=== PATIENT | female | born 1955 | race Caucasian/White ===

== ENCOUNTER 2016-08-19 19:02 | Inpatient (IN) | payer BC ==
[~2016-08-19] VITALS: Ht 165.1 cm; Wt 66.9 kg
[~2016-08-19 19:02] MED LIST: AMITRIP PO; CARB200T PO; CHOL500016 PO; CLON1TAB PO; GLAT20KI SC; LEVE500T22 PO; LEVE500T81 PO; LUBI24CA6 PO; METH10TA97 PO; MORP30TA PO; OXYB5TAB62 PO; PREG200C19 PO; RANI150C3 PO; SERT-135 PO
[2016-08-19] MEDS ORDERED: ACETAMINOPHEN 650 MG RECT SUPP PR ONE (19:30)
[2016-08-19 20:01] LABS: Basophils # (auto) 0.1 uL; Basophils % (auto) 0.6 % (0.0-2.0); Eosinophils # (auto) 0 uL; Hematocrit 47.7 % (36.0-46.0); Hemoglobin 16.3 g/dL (12.2-16.2); Lymphocytes # (auto) 0.6 uL; Lymphocytes % (auto) 5.3 % (10.0-50.0); Mean Corpuscular Hemoglobin 32.5 pg (28.0-32.0); Mean Corpuscular Hgb Conc. 34.2 g/dL (32.0-36.0); Monocytes # (auto) 0.8 uL; Monocytes % (auto) 7.6 % (0.0-12.0); Neutrophils # (auto) 9.1 uL; Neutrophils % (auto) 86.5 % (37.0-80.0); Platelet Count (auto) 217 10^3/uL (140-450); Red Cell Distribution Width 12.4 % (11.6-16.0); White Blood Cell 10.5 10^3/uL (4.4-10.8)
[2016-08-19] MEDS ORDERED: SODIUM CHLORIDE 0.9% 2,000 ML IV ONE (20:15)
[2016-08-19 20:30] LABS: Albumin 3.3 g/dL (3.4-5.0); Alkaline Phosphatase 82 U/L (45-117); Anion Gap 10 (5-15); Aspartate Aminotransferase 33 U/L (15-37); Bilirubin, Total 0.4 mg/dL (0.2-1.0); Blood Urea Nitrogen 13 mg/dL (7-18); Calcium 8.3 mg/dL (8.5-10.1); Carbon Dioxide 27 mmol/L (21-32); Chloride 101 mmol/L (98-107); GFR African American 135 mL/min; GFR Non-African American 111 mL/min; Glucose 136 mg/dL (74-106); Magnesium 1.9 mg/dL (1.6-2.6); Potassium 3.3 mmol/L (3.5-5.1); Sodium 138 mmol/L (136-145)
[2016-08-19] MEDS ORDERED: ONDANSETRON HCL 4 MG/2 ML VIAL IV ONE (21:15)
[2016-08-19 21:19] LABS: Urine Bilirubin Negative (Negative); Urine Blood Negative /uL (Negative); Urine Color Yellow (Yellow); Urine Glucose Normal (Normal); Urine Ketone Negative (Negative); Urine Nitrite Negative (Negative); Urine RBC 2 /hpf (0 - 4); Urine Squamous Epithelial Cell FEW /hpf (<5); Urine Urobilinogen Normal (Negative); Urine pH 8.5 (5.0-8.0)
[2016-08-20] MEDS ORDERED: NITROGLYCERIN 0.4 MG SL TAB SL PRN (00:45)
[2016-08-20] MEDS ORDERED: SERTRALINE HCL 50 MG TAB PO ONE (00:45)
[2016-08-20] MEDS ORDERED: PANTOPRAZOLE SODIUM 40 MG/10 ML VIAL IV ONE (00:45)
[2016-08-20] MEDS ORDERED: ACETAMINOPHEN 500 MG TAB PO PRN (00:45)
[2016-08-20] MEDS ORDERED: ONDANSETRON HCL 4 MG/2 ML VIAL IV PRN (00:45)
[2016-08-20] MEDS ORDERED: MORPHINE SULF INJ 2 MG/ML SYRINGE 1ML IV PRN (00:45)
[2016-08-20] MEDS ORDERED: SODIUM CHLORIDE 0.9% 1,000 ML IV ONE (00:45)
[2016-08-20] MEDS ORDERED: LORazepam 2MG/ML-1ML VIAL IV ONE (01:15)
[2016-08-20] MEDS ORDERED: metroNIDAZOLE 500MG/100ML 100 ML IV ONE (03:30)
[2016-08-20] MEDS: metroNIDAZOLE 250MG/50 ML 50 ML IV SCH ×4 (03:37→22:19)
[2016-08-20] MEDS: PIPERACILLIN-TAZOB 3.375GM 100 ML IV SCH ×5 (03:57→23:28)
[2016-08-20] MEDS ORDERED: ONDANSETRON HCL 4 MG/2 ML VIAL IV ONE (07:00)
[2016-08-20] MEDS ORDERED: ENOXAPARIN SOD 30 MG/0.3 ML SYRINGE SC SCH (10:00)
[2016-08-20] MEDS ORDERED: clonazePAM 0.5 MG TAB PO SCH (10:00)
[2016-08-20] MEDS: PANTOPRAZOLE SODIUM 40 MG/10 ML VIAL IV SCH (10:30)
[2016-08-20] MEDS: ENOXAPARIN SOD 40 MG/0.4 ML SYRINGE SC SCH (10:30)
[2016-08-20] MEDS: MORPHINE SULF INJ 2 MG/ML SYRINGE 1ML IV PRN ×2 (11:16→15:42)
[2016-08-20] MEDS ORDERED: LORazepam 2MG/ML-1ML VIAL IV PRN (12:30)
[2016-08-20] MEDS: OXYBUTYNIN CHL 5 MG TAB PO SCH ×2 (17:57→22:00)
[2016-08-20] MEDS: carBAMazepine 200 MG TAB PO SCH ×2 (17:57→22:00)
[2016-08-20] MEDS: LEVETIRACETAM 500 MG TAB PO SCH ×2 (17:57→22:00)
[2016-08-20] MEDS: PREGABALIN CAPSULE 75 MG CAP PO SCH ×2 (17:57→22:00)
[2016-08-20] MEDS: SERTRALINE HCL 50 MG TAB PO SCH (17:58)
[2016-08-20 18:07] VITALS: BP 140/93
[2016-08-20 20:51] VITALS: BP 149/82
[2016-08-20] MEDS ORDERED: LEVETIRACETAM INJ 500 MG in SODIUM CHL 0.9% 100 ML IV SCH ×2 (21:30→22:00)
[2016-08-20] MEDS ORDERED: AMITIZA 24 MCG PO SCH (22:00)
[2016-08-20] MEDS: SODIUM CHLORIDE 0.9% 1,000 ML IV SCH (22:20)
[2016-08-20] MEDS: LEVETIRACETAM INJ 500 MG in SODIUM CHL 0.9% 100 ML IV SCH (22:20)
[2016-08-21 00:26] VITALS: BP 148/80
[2016-08-21] MEDS: SODIUM CHLORIDE 0.9% 1,000 ML IV SCH ×4 (03:40→23:56)
[2016-08-21 04:00] VITALS: BP 138/78
[2016-08-21 05:10] LABS: Basophils # (auto) 0 uL; Basophils % (auto) 0.6 % (0.0-2.0); Eosinophils # (auto) 0 uL; Eosinophils % (auto) 0.1 % (0.0-7.0); Hematocrit 38.7 % (36.0-46.0); Hemoglobin 12.8 g/dL (12.2-16.2); Lymphocytes # (auto) 0.8 uL; Lymphocytes % (auto) 21.4 % (10.0-50.0); Mean Corpuscular Hgb Conc. 33.2 g/dL (32.0-36.0); Mean Corpuscular Volume 96.4 fL (80.0-100.0); Mean Platelet Volume 9.6 fL (7.4-10.4); Monocytes # (auto) 0.5 uL; Monocytes % (auto) 14.5 % (0.0-12.0); Neutrophils # (auto) 2.3 uL; Neutrophils % (auto) 63.4 % (37.0-80.0); Platelet Count (auto) 150 10^3/uL (140-450); Red Cell Distribution Width 12.3 % (11.6-16.0); White Blood Cell 3.6 10^3/uL (4.4-10.8)
[2016-08-21] MEDS: PIPERACILLIN-TAZOB 3.375GM 100 ML IV SCH ×3 (05:30→17:46)
[2016-08-21 05:31] LABS: Albumin 2.9 g/dL (3.4-5.0); BUN/Creatinine Ratio 28.2; Bilirubin, Total 0.4 mg/dL (0.2-1.0); Calcium 8.2 mg/dL (8.5-10.1); Potassium 3.2 mmol/L (3.5-5.1); Total Protein 6.3 g/dL (6.4-8.2)
[2016-08-21] MEDS: metroNIDAZOLE 250MG/50 ML 50 ML IV SCH ×3 (05:31→21:09)
[2016-08-21] MEDS: OXYBUTYNIN CHL 5 MG TAB PO SCH ×2 (10:00→19:57)
[2016-08-21] MEDS: LEVETIRACETAM 500 MG TAB PO SCH ×2 (10:00→21:09)
[2016-08-21] MEDS: carBAMazepine 200 MG TAB PO SCH ×2 (10:00→19:57)
[2016-08-21] MEDS: PREGABALIN CAPSULE 75 MG CAP PO SCH ×2 (10:00→19:57)
[2016-08-21] MEDS: SERTRALINE HCL 50 MG TAB PO SCH (10:00)
[2016-08-21] MEDS: PANTOPRAZOLE SODIUM 40 MG/10 ML VIAL IV SCH (10:48)
[2016-08-21] MEDS: ENOXAPARIN SOD 40 MG/0.4 ML SYRINGE SC SCH (10:48)
[2016-08-21] MEDS: LEVETIRACETAM INJ 500 MG in SODIUM CHL 0.9% 100 ML IV SCH (10:49)
[2016-08-21] MEDS: MORPHINE SULF INJ 2 MG/ML SYRINGE 1ML IV PRN ×2 (13:28→21:14)
[2016-08-21] MEDS ORDERED: BISACODYL 10 MG RECT SUPP PR ONE (16:00)
[2016-08-21] MEDS ORDERED: POTASSIUM CHLORIDE 20 MEQ, LIDOCAINE 1% (LOCAL ANESTH.) 2 ML in SODIUM CHL 0.9% 100 ML IV ONE (17:30)
[2016-08-21 20:00] VITALS: BP 144/78
[2016-08-21] MEDS: ONDANSETRON HCL 4 MG/2 ML VIAL IV PRN (23:23)
[2016-08-22] VITALS: BP 148/81
[2016-08-22 03:50] VITALS: BP 150/81
[2016-08-22] MEDS: metroNIDAZOLE 250MG/50 ML 50 ML IV SCH ×3 (04:49→21:12)
[2016-08-22] MEDS: PIPERACILLIN-TAZOB 3.375GM 100 ML IV SCH ×5 (05:19→23:25)
[2016-08-22] MEDS: SODIUM CHLORIDE 0.9% 1,000 ML IV SCH ×3 (05:19→19:59)
[2016-08-22] MEDS: SERTRALINE HCL 50 MG TAB PO SCH (09:26)
[2016-08-22] MEDS: OXYBUTYNIN CHL 5 MG TAB PO SCH ×2 (09:27→19:59)
[2016-08-22] MEDS: LEVETIRACETAM 500 MG TAB PO SCH ×2 (09:27→19:59)
[2016-08-22] MEDS: PREGABALIN CAPSULE 75 MG CAP PO SCH ×2 (09:27→20:00)
[2016-08-22] MEDS: carBAMazepine 200 MG TAB PO SCH ×2 (09:27→20:00)
[2016-08-22] MEDS: ENOXAPARIN SOD 40 MG/0.4 ML SYRINGE SC SCH (09:41)
[2016-08-22] MEDS: PANTOPRAZOLE SODIUM 40 MG/10 ML VIAL IV SCH (09:41)
[2016-08-22] MEDS: LEVETIRACETAM INJ 500 MG in SODIUM CHL 0.9% 100 ML IV SCH (09:41)
[2016-08-22 12:00] VITALS: BP 147/79
[2016-08-22] MEDS: POTASSIUM CHL 20MEQ/100ML 100 ML IV SCH ×3 (12:51→17:04)
[2016-08-22 16:00] VITALS: BP 149/86
[2016-08-22] MEDS: MORPHINE SULF INJ 2 MG/ML SYRINGE 1ML IV PRN (18:52)
[2016-08-22 19:30] VITALS: BP 151/95
[2016-08-22] MEDS: LACTULOSE 20Gm/30ML SOLN PO SCH (21:11)
[2016-08-23 00:30] VITALS: BP 169/89
[2016-08-23] MEDS: SODIUM CHLORIDE 0.9% 1,000 ML IV SCH ×3 (02:42→15:40)
[2016-08-23 04:14] VITALS: BP 161/86
[2016-08-23] MEDS: metroNIDAZOLE 250MG/50 ML 50 ML IV SCH ×3 (05:06→23:30)
[2016-08-23] MEDS: PIPERACILLIN-TAZOB 3.375GM 100 ML IV SCH ×4 (05:58→23:31)
[2016-08-23] MEDS: MORPHINE SULF INJ 2 MG/ML SYRINGE 1ML IV PRN (07:35)
[2016-08-23 08:00] VITALS: BP 157/83
[2016-08-23] MEDS: LEVETIRACETAM 500 MG TAB PO SCH ×2 (10:00→23:19)
[2016-08-23] MEDS: PREGABALIN CAPSULE 75 MG CAP PO SCH ×2 (10:00→23:29)
[2016-08-23] MEDS: SERTRALINE HCL 50 MG TAB PO SCH (10:00)
[2016-08-23] MEDS: carBAMazepine 200 MG TAB PO SCH ×2 (10:00→23:19)
[2016-08-23] MEDS: OXYBUTYNIN CHL 5 MG TAB PO SCH ×2 (10:00→23:19)
[2016-08-23] MEDS: LEVETIRACETAM INJ 500 MG in SODIUM CHL 0.9% 100 ML IV SCH (10:13)
[2016-08-23] MEDS: PANTOPRAZOLE SODIUM 40 MG/10 ML VIAL IV SCH (10:13)
[2016-08-23] MEDS: ONDANSETRON HCL 4 MG/2 ML VIAL IV PRN (10:13)
[2016-08-23] MEDS: LACTULOSE 20Gm/30ML SOLN PO SCH ×2 (10:13→23:19)
[2016-08-23] MEDS: ENOXAPARIN SOD 40 MG/0.4 ML SYRINGE SC SCH (10:14)
[2016-08-23 11:51] VITALS: BP 154/86
[2016-08-23 16:00] VITALS: BP 155/90
[2016-08-23 20:00] VITALS: BP 149/75
[2016-08-24] VITALS: BP 147/84
[2016-08-24 04:00] VITALS: BP 151/80
[2016-08-24] MEDS: metroNIDAZOLE 250MG/50 ML 50 ML IV SCH ×3 (06:09→22:41)
[2016-08-24] MEDS: PIPERACILLIN-TAZOB 3.375GM 100 ML IV SCH ×3 (06:09→18:00)
[2016-08-24 07:59] LABS: Basophils # (auto) 0 uL; Basophils % (auto) 0.8 % (0.0-2.0); Eosinophils # (auto) 0 uL; Eosinophils % (auto) 0.5 % (0.0-7.0); Hematocrit 39.1 % (36.0-46.0); Lymphocytes # (auto) 1.1 uL; Lymphocytes % (auto) 18.4 % (10.0-50.0); Mean Corpuscular Hgb Conc. 33.3 g/dL (32.0-36.0); Mean Corpuscular Volume 95.9 fL (80.0-100.0); Mean Platelet Volume 8.7 fL (7.4-10.4); Monocytes # (auto) 0.6 uL; Monocytes % (auto) 10.3 % (0.0-12.0); Neutrophils # (auto) 4.1 uL; Platelet Count (auto) 182 10^3/uL (140-450); Red Cell Distribution Width 11.9 % (11.6-16.0); White Blood Cell 5.9 10^3/uL (4.4-10.8)
[2016-08-24 08:00] VITALS: BP 148/80
[2016-08-24 08:16] LABS: BUN/Creatinine Ratio 20.5; Calcium 7.9 mg/dL (8.5-10.1)
[2016-08-24 08:20] LABS: Potassium 2.5 mmol/L (3.5-5.1)
[2016-08-24] MEDS: OXYBUTYNIN CHL 5 MG TAB PO SCH ×2 (09:32→22:42)
[2016-08-24] MEDS: carBAMazepine 200 MG TAB PO SCH ×2 (09:32→22:44)
[2016-08-24] MEDS: LEVETIRACETAM 500 MG TAB PO SCH ×2 (09:32→22:42)
[2016-08-24] MEDS: LEVETIRACETAM INJ 500 MG in SODIUM CHL 0.9% 100 ML IV SCH (09:32)
[2016-08-24] MEDS: SERTRALINE HCL 50 MG TAB PO SCH (09:32)
[2016-08-24] MEDS: PREGABALIN CAPSULE 75 MG CAP PO SCH ×2 (09:32→22:43)
[2016-08-24] MEDS: PANTOPRAZOLE SODIUM 40 MG/10 ML VIAL IV SCH (09:32)
[2016-08-24] MEDS: ENOXAPARIN SOD 40 MG/0.4 ML SYRINGE SC SCH (09:33)
[2016-08-24] MEDS: SODIUM CHLORIDE 0.9% 1,000 ML IV SCH (11:40)
[2016-08-24 12:00] VITALS: BP 150/86
[2016-08-24] MEDS: LACTULOSE 20Gm/30ML SOLN PO SCH ×2 (12:45→22:41)
[2016-08-24] MEDS: POTASSIUM CHL 20MEQ/100ML 100 ML IV SCH ×4 (13:54→22:40)
[2016-08-24] MEDS: MORPHINE SULF INJ 2 MG/ML SYRINGE 1ML IV PRN (14:07)
[2016-08-24 16:00] VITALS: BP 140/82
[2016-08-24] MEDS: D5W/SOD CHL 0.2% 1,000 ML IV SCH (17:49)
[2016-08-24 20:00] VITALS: BP 134/86
[2016-08-24] MEDS: GLATIRAMER 40 MG/ML SC SCH (22:00)
[2016-08-24] MEDS ORDERED: MORPHINE SULF 30 mg ER tab PO SCH (22:00)
[2016-08-25] VITALS (7 sets, daily range): BP systolic 94–158; BP diastolic 60–102
[2016-08-25] MEDS: PIPERACILLIN-TAZOB 3.375GM 100 ML IV SCH ×5 (00:57→23:39)
[2016-08-25] MEDS: D5W/SOD CHL 0.2% 1,000 ML IV SCH ×3 (02:00→18:28)
[2016-08-25 05:55] LABS: Basophils # (auto) 0 uL; Basophils % (auto) 0.5 % (0.0-2.0); Eosinophils # (auto) 0.1 uL; Eosinophils % (auto) 1.3 % (0.0-7.0); Hemoglobin 10.4 g/dL (12.2-16.2); Lymphocytes # (auto) 1.3 uL; Lymphocytes % (auto) 20.3 % (10.0-50.0); Mean Corpuscular Hemoglobin 31.9 pg (28.0-32.0); Mean Corpuscular Hgb Conc. 32.7 g/dL (32.0-36.0); Mean Corpuscular Volume 97.7 fL (80.0-100.0); Monocytes # (auto) 0.6 uL; Monocytes % (auto) 9.8 % (0.0-12.0); Neutrophils # (auto) 4.4 uL; Neutrophils % (auto) 68.1 % (37.0-80.0); Platelet Count (auto) 150 10^3/uL (140-450); Red Cell Distribution Width 12.1 % (11.6-16.0); White Blood Cell 6.5 10^3/uL (4.4-10.8)
[2016-08-25] MEDS: metroNIDAZOLE 250MG/50 ML 50 ML IV SCH ×3 (06:03→21:42)
[2016-08-25 07:59] LABS: BUN/Creatinine Ratio 8.5; Bilirubin, Total 0.5 mg/dL (0.2-1.0); Calcium 7.7 mg/dL (8.5-10.1)
[2016-08-25 08:00] LABS: Albumin 2.8 g/dL (3.4-5.0); Total Protein 5.8 g/dL (6.4-8.2)
[2016-08-25] MEDS: LACTULOSE 20Gm/30ML SOLN PO SCH ×2 (10:00→21:43)
[2016-08-25] MEDS: PANTOPRAZOLE SODIUM 40 MG/10 ML VIAL IV SCH (10:47)
[2016-08-25] MEDS ORDERED: MORP60TA25 PO (10:47)
[2016-08-25] MEDS: SERTRALINE HCL 50 MG TAB PO SCH (10:48)
[2016-08-25] MEDS: carBAMazepine 200 MG TAB PO SCH ×2 (10:48→21:43)
[2016-08-25] MEDS: OXYBUTYNIN CHL 5 MG TAB PO SCH ×2 (10:48→21:42)
[2016-08-25] MEDS: PREGABALIN CAPSULE 75 MG CAP PO SCH ×2 (10:48→21:42)
[2016-08-25] MEDS: ENOXAPARIN SOD 40 MG/0.4 ML SYRINGE SC SCH (10:48)
[2016-08-25] MEDS: LEVETIRACETAM 500 MG TAB PO SCH ×2 (10:48→21:43)
[2016-08-25] MEDS ORDERED: MORPHINE SULF 30 mg ER tab PO ONE (11:45)
[2016-08-25] MEDS: POTASSIUM CHL 20MEQ/100ML 100 ML IV SCH ×6 (12:08→21:46)
[2016-08-25] MEDS ORDERED: clonazePAM 0.5 MG TAB PO PRN (20:00)
[2016-08-25] MEDS: MORPHINE SULF 30 mg ER tab PO SCH (21:43)
[2016-08-26] MEDS: D5W/SOD CHL 0.2% 1,000 ML IV SCH ×3 (01:19→17:19)
[2016-08-26 04:43] VITALS: BP 104/66
[2016-08-26] MEDS: metroNIDAZOLE 250MG/50 ML 50 ML IV SCH ×3 (05:32→22:17)
[2016-08-26] MEDS: PIPERACILLIN-TAZOB 3.375GM 100 ML IV SCH ×3 (05:51→18:08)
[2016-08-26 06:09] LABS: Calcium 7.7 mg/dL (8.5-10.1); Potassium 3.8 mmol/L (3.5-5.1)
[2016-08-26 08:00] VITALS: BP 126/80
[2016-08-26] MEDS: LACTULOSE 20Gm/30ML SOLN PO SCH ×2 (10:00→22:17)
[2016-08-26] MEDS ORDERED: DESMOPRESSIN ACET 0.01% 5ML NASAL SPRY SCH (10:00)
[2016-08-26] MEDS: ENOXAPARIN SOD 40 MG/0.4 ML SYRINGE SC SCH (10:20)
[2016-08-26] MEDS: PANTOPRAZOLE SODIUM 40 MG/10 ML VIAL IV SCH (10:20)
[2016-08-26] MEDS: carBAMazepine 200 MG TAB PO SCH ×2 (10:25→22:18)
[2016-08-26] MEDS: LEVETIRACETAM 500 MG TAB PO SCH ×2 (10:25→22:17)
[2016-08-26] MEDS: OXYBUTYNIN CHL 5 MG TAB PO SCH ×2 (10:25→22:17)
[2016-08-26] MEDS: SERTRALINE HCL 50 MG TAB PO SCH (10:25)
[2016-08-26] MEDS: MORPHINE SULF 30 mg ER tab PO SCH ×2 (10:30→22:18)
[2016-08-26 12:00] VITALS: BP 128/28
[2016-08-26] MEDS: PREGABALIN CAPSULE 75 MG CAP PO SCH ×2 (12:46→22:19)
[2016-08-26] MEDS ORDERED: DESMOPRESSIN ACET 0.01% 5ML NASAL SPRY ONE (15:30)
[2016-08-26 16:00] VITALS: BP 105/48
[2016-08-26] MEDS: HYDROmorphone HCL 2 MG TAB PO PRN (16:04)
[2016-08-26 20:00] VITALS: BP 112/62
[2016-08-26] MEDS: clonazePAM 0.5 MG TAB PO SCH (22:18)
[2016-08-26] MEDS: GLATIRAMER 40 MG/ML SC SCH (22:19)
[2016-08-27] VITALS: BP 116/62
[2016-08-27] MEDS: PIPERACILLIN-TAZOB 3.375GM 100 ML IV SCH ×2 (00:09→06:00)
[2016-08-27] MEDS: D5W/SOD CHL 0.2% 1,000 ML IV SCH ×3 (01:19→20:20)
[2016-08-27 03:59] VITALS: BP 125/71
[2016-08-27] MEDS: HYDROmorphone HCL 2 MG TAB PO PRN (05:19)
[2016-08-27] MEDS: clonazePAM 0.5 MG TAB PO SCH ×3 (05:19→21:55)
[2016-08-27] MEDS: metroNIDAZOLE 250MG/50 ML 50 ML IV SCH (05:20)
[2016-08-27 08:00] VITALS: BP 124/81
[2016-08-27] MEDS ORDERED: MORPHINE SULF INJ 2 MG/ML SYRINGE 1ML IV PRN (08:30)
[2016-08-27] MEDS ORDERED: MORPHINE SULFATE 10 MG/5 ML ORAL SOLN PO PRN (09:15)
[2016-08-27] MEDS: LACTULOSE 20Gm/30ML SOLN PO SCH ×2 (10:00→22:00)
[2016-08-27] MEDS: DESMOPRESSIN ACET 0.01% 5ML NASAL SPRY SCH (10:00)
[2016-08-27] MEDS: PANTOPRAZOLE SODIUM 40 MG/10 ML VIAL IV SCH (10:30)
[2016-08-27] MEDS: OXYBUTYNIN CHL 5 MG TAB PO SCH ×2 (10:31→21:56)
[2016-08-27] MEDS: PREGABALIN CAPSULE 75 MG CAP PO SCH ×2 (10:32→21:56)
[2016-08-27] MEDS: LEVETIRACETAM 500 MG TAB PO SCH ×2 (10:32→21:56)
[2016-08-27] MEDS: carBAMazepine 200 MG TAB PO SCH ×2 (10:33→21:55)
[2016-08-27] MEDS: MORPHINE SULF 30 mg ER tab PO SCH ×2 (10:33→21:57)
[2016-08-27] MEDS: ENOXAPARIN SOD 40 MG/0.4 ML SYRINGE SC SCH (10:34)
[2016-08-27] MEDS: SERTRALINE HCL 50 MG TAB PO SCH (10:34)
[2016-08-27 12:00] VITALS: BP 141/86
[2016-08-27 16:00] VITALS: BP 147/86
[2016-08-27 21:43] VITALS: BP 136/73
[2016-08-28] MEDS: LACTULOSE 20Gm/30ML SOLN PO SCH ×2 (03:50→12:18)
[2016-08-28 04:39] VITALS: BP 115/70
[2016-08-28] MEDS: D5W/SOD CHL 0.2% 1,000 ML IV SCH ×2 (04:54→10:04)
[2016-08-28] MEDS: clonazePAM 0.5 MG TAB PO SCH ×2 (05:55→14:11)
[2016-08-28 08:56] VITALS: BP 112/69
[2016-08-28 09:04] LABS: Basophils # (auto) 0.1 uL; Basophils % (auto) 1.7 % (0.0-2.0); Eosinophils # (auto) 0.3 uL; Eosinophils % (auto) 5.4 % (0.0-7.0); Hematocrit 41.8 % (36.0-46.0); Hemoglobin 13.9 g/dL (12.2-16.2); Lymphocytes # (auto) 1.2 uL; Lymphocytes % (auto) 26.3 % (10.0-50.0); Mean Corpuscular Hemoglobin 31.9 pg (28.0-32.0); Mean Corpuscular Hgb Conc. 33.2 g/dL (32.0-36.0); Mean Platelet Volume 9.7 fL (7.4-10.4); Monocytes # (auto) 0.4 uL; Monocytes % (auto) 7.9 % (0.0-12.0); Neutrophils # (auto) 2.7 uL; Neutrophils % (auto) 58.7 % (37.0-80.0); Platelet Count (auto) 256 10^3/uL (140-450); SUSPECT VIEW TRANSMISSION; White Blood Cell 4.6 10^3/uL (4.4-10.8)
[2016-08-28 09:20] LABS: Calcium 7.7 mg/dL (8.5-10.1); Potassium 3.6 mmol/L (3.5-5.1)
[2016-08-28 09:59] LABS: BUN/Creatinine Ratio 10.2
[2016-08-28] MEDS: OXYBUTYNIN CHL 5 MG TAB PO SCH (10:04)
[2016-08-28] MEDS: DESMOPRESSIN ACET 0.01% 5ML NASAL SPRY SCH (10:04)
[2016-08-28] MEDS: PANTOPRAZOLE SODIUM 40 MG/10 ML VIAL IV SCH (10:04)
[2016-08-28] MEDS: LEVETIRACETAM 500 MG TAB PO SCH (10:04)
[2016-08-28] MEDS: carBAMazepine 200 MG TAB PO SCH (10:05)
[2016-08-28] MEDS: MORPHINE SULF 30 mg ER tab PO SCH (10:05)
[2016-08-28] MEDS: SERTRALINE HCL 50 MG TAB PO SCH (10:05)
[2016-08-28] MEDS: PREGABALIN CAPSULE 75 MG CAP PO SCH (10:05)
[2016-08-28] MEDS: ENOXAPARIN SOD 40 MG/0.4 ML SYRINGE SC SCH (10:05)
[2016-08-28 12:08] VITALS: BP 91/61
[2016-08-28 15:59] LABS: Giant Platelets Few; Platelet Estimate Adequate
[2016-08-28 16:42] VITALS: BP 91/52
[2016-08-28 17:01] VITALS: BP 91/62
== END 2016-08-28 18:25 | disposition home health service (06) | DRG 871 ==
LOC: EDUNIT# 19:02 → ER 19:10 → TELE 19:11 → ICU CENTRL 08-20 17:23 → DOU IN ICU 08-20 19:18 → TELE-CENTR 08-27 19:58
PROVIDERS: ADMIT Family Medicine; ATTEND Internal Medicine Cardiovascular Disease
DX: A41.9 Sepsis, unspecified organism (principal); G92 Toxic encephalopathy; R65.21 Severe sepsis with septic shock; E23.2 Diabetes insipidus; G40.209 Localization-related (focal) (partial) symptomatic epilepsy and epileptic syndromes with complex partial seizures, not intractable, without status epilepticus; K56.60 Unspecified intestinal obstruction; K56.7 Ileus, unspecified; F41.9 Anxiety disorder, unspecified; F32.9 Major depressive disorder, single episode, unspecified; G35 Multiple sclerosis; E86.0 Dehydration; G89.4 Chronic pain syndrome; E78.5 Hyperlipidemia, unspecified; E83.51 Hypocalcemia; F17.200 Nicotine dependence, unspecified, uncomplicated; F20.9 Schizophrenia, unspecified; E86.9 Volume depletion, unspecified; T40.605A Adverse effect of unspecified narcotics, initial encounter; K59.03 Drug induced constipation; Z82.3 Family history of stroke; Z83.3 Family history of diabetes mellitus; Z82.49 Family history of ischemic heart disease and other diseases of the circulatory system; Z90.49 Acquired absence of other specified parts of digestive tract; Z82.5 Family history of asthma and other chronic lower respiratory diseases; Z88.8 Allergy status to other drugs, medicaments and biological substances; Z90.89 Acquired absence of other organs; Z80.9 Family history of malignant neoplasm, unspecified; Y92.89 Other specified places as the place of occurrence of the external cause; Z82.61 Family history of arthritis
CPT/HCPCS: 36415; 36600; 51702; 70450; 71010; 74000; 74176; 80048; 80053; 80156; 81001; 82270; 82805; 82962; 83605; 83735; 83935; 84484; 85025; 86850; 86900; 86901; 87040; 87081; 93005; 94761; 95819; 96361; 96372; 96374; 96375; 96376; 97001; 97116; 97530; C9113; G0434; J2001; J2405; J2543; J3480; J3490

== ENCOUNTER → 2016-10-14 | Outpatient (CLI) | payer BC ==
[~2016-10-14] MED LIST changes: +FUROSEMIDE 40 MG/4 ML VIAL IV ONE; +FUROSEMIDE 40 MG/4 ML VIAL ONE; +MORP60TA25 PO; +POTASSIUM CHL 10 Meq TABLET PO ONE
[2016-10-14 13:15] VITALS: BP 108/58
[2016-10-14 13:45] VITALS: BP 104/73
[2016-10-14 16:27] LABS: Basophils # (auto) 0 uL; Basophils % (auto) 1.1 % (0.0-2.0); Eosinophils # (auto) 0.1 uL; Eosinophils % (auto) 2.4 % (0.0-7.0); Hematocrit 38.2 % (36.0-46.0); Hemoglobin 12.8 g/dL (12.2-16.2); Lymphocytes # (auto) 1.8 uL; Lymphocytes % (auto) 39.7 % (10.0-50.0); Mean Corpuscular Hemoglobin 31.5 pg (28.0-32.0); Mean Corpuscular Hgb Conc. 33.5 g/dL (32.0-36.0); Mean Corpuscular Volume 93.8 fL (80.0-100.0); Mean Platelet Volume 9.9 fL (7.4-10.4); Monocytes # (auto) 0.4 uL; Monocytes % (auto) 9.1 % (0.0-12.0); Neutrophils # (auto) 2.1 uL; Neutrophils % (auto) 47.7 % (37.0-80.0); Platelet Count (auto) 181 10^3/uL (140-450); Red Cell Distribution Width 13.6 % (11.6-16.0); SUSPECT VIEW TRANSMISSION; White Blood Cell 4.4 10^3/uL (4.4-10.8)
[2016-10-14 16:37] LABS: BUN/Creatinine Ratio 10.9; Calcium 8.5 mg/dL (8.5-10.1); Magnesium 2.5 mg/dL (1.6-2.6); Potassium 3.8 mmol/L (3.5-5.1)
== END | disposition home or self-care (01) ==
LOC: CHF HDHVI 13:16
PROVIDERS: ATTEND Internal Medicine Cardiovascular Disease
DX: I10 Essential (primary) hypertension (principal); E83.42 Hypomagnesemia; D64.9 Anemia, unspecified
CPT/HCPCS: 36415; 80048; 83735; 85025; 96374; G0463

== ENCOUNTER → 2017-05-06 | Outpatient (CLI) | payer BC ==
[~2017-05-06] MED LIST changes: -FUROSEMIDE 40 MG/4 ML VIAL IV ONE; -FUROSEMIDE 40 MG/4 ML VIAL ONE; -POTASSIUM CHL 10 Meq TABLET PO ONE
[2017-05-06 12:25] LABS: Basophils # (auto) 0.1 uL; Basophils % (auto) 1.6 % (0.0-2.0); Eosinophils # (auto) 0.1 uL; Eosinophils % (auto) 2.2 % (0.0-7.0); Hematocrit 38.3 % (36.0-46.0); Hemoglobin 13.3 g/dL (12.2-16.2); Lymphocytes # (auto) 1.6 uL; Lymphocytes % (auto) 28.5 % (10.0-50.0); Mean Corpuscular Hemoglobin 33.3 pg (28.0-32.0); Mean Corpuscular Hgb Conc. 34.7 g/dL (32.0-36.0); Mean Corpuscular Volume 95.9 fL (80.0-100.0); Monocytes # (auto) 0.4 uL; Monocytes % (auto) 6.8 % (0.0-12.0); Neutrophils # (auto) 3.5 uL; Neutrophils % (auto) 60.9 % (37.0-80.0); Nucleated Red Blood Cells % 0.4 %; Platelet Count (auto) 186 10^3/uL (140-450); Red Blood Cells 3.99 10^6/uL (4.0-5.20); White Blood Cell 5.7 10^3/uL (4.4-10.8)
[2017-05-06 12:30] LABS: Urine Blood Negative /uL (Negative); Urine Specific Gravity 1.012 (1.001-1.035)
[2017-05-06 12:49] LABS: Hepatitis B Surface Antibody Negative
[2017-05-06 12:54] LABS: Albumin 3.8 g/dL (3.4-5.0); Bilirubin, Direct 0.1 mg/dL (0-0.2); Bilirubin, Total 0.4 mg/dL (0.2-1.0); Calcium 8.5 mg/dL (8.5-10.1); Potassium 3.8 mmol/L (3.5-5.1); Total Protein 7.1 g/dL (6.4-8.2)
[2017-05-06 13:00] LABS: Hepatitis B Surface Antigen Negative (Negative)
[2017-05-06 13:28] LABS: Hepatitis A Total Antibody Negative; Hepatitis C Antibody Negative (Negative)
[2017-05-06 13:29] LABS: Hepatitis B Core Total AB Negative
== END | disposition home or self-care (01) ==
LOC: LAB 10:03
PROVIDERS: ATTEND Internal Medicine Cardiovascular Disease
DX: I10 Essential (primary) hypertension (principal); E78.00 Pure hypercholesterolemia, unspecified; K74.1 Hepatic sclerosis; E11.9 Type 2 diabetes mellitus without complications; E03.9 Hypothyroidism, unspecified; D64.9 Anemia, unspecified; E55.9 Vitamin D deficiency, unspecified; N39.0 Urinary tract infection, site not specified; G40.89 Other seizures; G35 Multiple sclerosis
CPT/HCPCS: 36415; 80048; 80061; 80076; 80156; 81003; 82306; 82542; 83036; 84439; 84443; 85025; 86704; 86706; 86708; 86803; 87086; 87340

== ENCOUNTER → 2017-12-22 | Outpatient (CLI) | payer BC ==
[2017-12-22 16:08] LABS: Basophils # (auto) 0.1 uL; Basophils % (auto) 1.9 % (0.0-2.0); Eosinophils # (auto) 0.2 uL; Eosinophils % (auto) 3.5 % (0.0-7.0); Hematocrit 36.9 % (36.0-46.0); Lymphocytes # (auto) 1.6 uL; Lymphocytes % (auto) 35.7 % (10.0-50.0); Mean Corpuscular Hemoglobin 33.6 pg (28.0-32.0); Mean Corpuscular Hgb Conc. 35.3 g/dL (32.0-36.0); Mean Corpuscular Volume 95.2 fL (80.0-100.0); Monocytes # (auto) 0.4 uL; Neutrophils # (auto) 2.3 uL; Neutrophils % (auto) 49.9 % (37.0-80.0); Nucleated Red Blood Cells % 0.5 %; Platelet Count (auto) 182 10^3/uL (140-450); Red Blood Cells 3.88 10^6/uL (4.0-5.20); Red Cell Distribution Width 12.1 % (11.8-14.3); White Blood Cell 4.5 10^3/uL (4.4-10.8)
[2017-12-22 16:14] LABS: Urine Bacteria NONE SEEN /hpf (None Seen); Urine Blood Negative /uL (Negative); Urine Specific Gravity 1.013 (1.001-1.035); Urine WBC <1 /hpf (0 - 5)
[2017-12-22 16:24] LABS: Albumin 3.7 g/dL (3.4-5.0); Bilirubin, Total 0.5 mg/dL (0.2-1.0); Potassium 3.7 mmol/L (3.5-5.1); Total Protein 6.8 g/dL (6.4-8.2)
== END | disposition home or self-care (01) ==
LOC: LAB 13:03
PROVIDERS: ATTEND Internal Medicine Cardiovascular Disease
DX: I12.9 Hypertensive chronic kidney disease with stage 1 through stage 4 chronic kidney disease, or unspecified chronic kidney disease (principal); E11.22 Type 2 diabetes mellitus with diabetic chronic kidney disease; N18.9 Chronic kidney disease, unspecified; I25.10 Atherosclerotic heart disease of native coronary artery without angina pectoris; G35 Multiple sclerosis; D64.9 Anemia, unspecified; D51.9 Vitamin B12 deficiency anemia, unspecified; N39.0 Urinary tract infection, site not specified; E55.9 Vitamin D deficiency, unspecified; E03.9 Hypothyroidism, unspecified; E78.00 Pure hypercholesterolemia, unspecified; F41.9 Anxiety disorder, unspecified; K21.9 Gastro-esophageal reflux disease without esophagitis; E78.5 Hyperlipidemia, unspecified; B87.89 Myiasis of other sites
CPT/HCPCS: 36415; 80053; 81001; 82306; 82607; 85025

== ENCOUNTER 2018-12-17 14:33 | Inpatient (IN) | payer BC ==
[~2018-12-17] VITALS: Ht 154.9 cm; Wt 59.9 kg
[~2018-12-17 14:33] MED LIST changes: +OXYB5TAB24 PO; -OXYB5TAB62 PO
[2018-12-17 15:27] LABS: Basophils # (auto) 0 uL; Basophils % (auto) 0.6 % (0.0-2.0); Eosinophils # (auto) 0 uL; Eosinophils % (auto) 0.1 % (0.0-7.0); Hematocrit 47.2 % (36.0-46.0); Hemoglobin 16.7 g/dL (12.2-16.2); Lymphocytes # (auto) 0.5 uL; Lymphocytes % (auto) 10.1 % (10.0-50.0); Mean Corpuscular Hemoglobin 33.6 pg (28.0-32.0); Mean Corpuscular Hgb Conc. 35.5 g/dL (32.0-36.0); Mean Corpuscular Volume 94.8 fL (80.0-100.0); Monocytes # (auto) 0.7 uL; Monocytes % (auto) 13.1 % (0.0-12.0); Neutrophils # (auto) 3.9 uL; Neutrophils % (auto) 76.1 % (37.0-80.0); Platelet Count (auto) 252 10^3/uL (140-450); Red Blood Cells 4.98 10^6/uL (4.0-5.20); Red Cell Distribution Width 12.1 % (11.8-14.3); White Blood Cell 5.1 10^3/uL (4.4-10.8)
[2018-12-17 15:59] LABS: Albumin 4.3 g/dL (3.4-5.0); Calcium 9.3 mg/dL (8.5-10.1); Potassium 3.8 mmol/L (3.5-5.1)
[2018-12-17 16:06] LABS: BUN/Creatinine Ratio 25.2; Bilirubin, Total 0.8 mg/dL (0.2-1.0); Total Protein 8.1 g/dL (6.4-8.2)
[2018-12-17] MEDS ORDERED: SODIUM CHLORIDE 0.9% 1,000 ML IVB ONE (16:28)
[2018-12-17] MEDS ORDERED: SODIUM CHLORIDE 0.9% 1,000 ML IV ONE ×2 (16:30)
[2018-12-17] MEDS ORDERED: MORPHINE SULF INJ 2 MG/ML SYRINGE 1ML IV ONE (16:30)
[2018-12-17] MEDS ORDERED: PROMETHAZINE HCL 25 MG/ML 1ML IV ONE (16:30)
[2018-12-17 16:53] LABS: Partial Thromboplastin Time 26.3 sec (23.64-32.05)
[2018-12-17 17:38] LABS: Magnesium 2.3 mg/dL (1.6-2.6)
[2018-12-17] MEDS: SODIUM CHLORIDE 0.9% 1,000 ML IV SCH (19:20)
[2018-12-17] MEDS ORDERED: DEXTROSE (50%) 50ML SYRG IV PRN (19:30)
[2018-12-17] MEDS ORDERED: cefTRIAXone 1GM/50ML D5W 50 ML IV ONE (19:30)
[2018-12-17] MEDS: FAMOTIDINE (10MG/ML) 2ML VL IV SCH (19:30)
[2018-12-17] MEDS ORDERED: MORPHINE SULFATE 4 MG/ML SYR/VIAL IV PRN (19:30)
[2018-12-17 19:53] LABS: Urine Bacteria FEW /hpf (None Seen); Urine Blood Negative /uL (Negative); Urine Hyaline Cast MANY /lpf (0 - 2); Urine Mucus FEW (None Seen); Urine Specific Gravity 1.022 (1.001-1.035); Urine WBC 1 /hpf (0 - 5)
[2018-12-17 21:25] VITALS: BP 124/70
[2018-12-17 22:00] VITALS: BP 124/70
--- NOTE | 2018-12-17 22:00 | NUR ---
Admitted to room 217B. Alert and oriented x4. at bedside. NG tube to nostril. Placement checked by auscultation. Connected to suction per orders. Receiving dark greenish/black drainage. Assist to commode. Wears breifs for stress incontinence. Foul smelling urine. Producing large amount of clear mucous from nose. Verbalized "I always am blowing her nose but seems to be worse now with tube." Skin clear. IV to Right AC patent 18 gauge. Seems to be very anxious. Constantly calling and asking about NG tube. History of seizures yet refusing to let us pad side rails due to it covering her way of controlling the bed. She states she is not a diabetic and they have us checking blood sugars q6. A1c is WNL's. Will page hospitalist and will ask to discontinue per her request. Oriented to room and hospital policies. Patient is a pack a day smoker and unable to go out. May need a nicotine patch
[2018-12-17] MEDS: MORPHINE SULFATE 4 MG/ML SYR/VIAL IV PRN (23:01)
[2018-12-17] MEDS: PROMETHAZINE HCL 25 MG/ML 1ML IV PRN (23:02)
[2018-12-17] MEDS: metroNIDAZOLE 500MG/100ML 100 ML IV SCH (23:02)
--- NOTE | 2018-12-18 00:13 | NUR ---
PATIENT HAD 800 ML OF GREEN BILE OUTPUT. REPLACED SUCTION CONTAINER. PATIENT STILL FEELING NAUSEATED.
--- NOTE | 2018-12-18 04:00 | NUR ---
Removed full canister from NG tube, 950 mls of dark green bile. Continues to suction per orders. Asked me to secure NG tube better because she is worried about it moving and states they had a hard time placing it in ER and it was very painful. As I went to wrap tape from nose and around tube she advised me to place tape over top of nose because she has too much mucous and the tape wont hold in that way. So just reinforced tube across top of nose. Checked placement again by auscultation.
[2018-12-18 05:00] VITALS: BP 116/67
[2018-12-18] MEDS: SODIUM CHLORIDE 0.9% 1,000 ML IV SCH (05:20)
--- NOTE | 2018-12-18 06:00 | NUR ---
IV to right AC removed,IV Bleeding at insertion site as well as complaints of it bothering her. New IV started to left FA 20 G.Very active production editor light. States her throat feels swollen and tube feels like "its pokiing her neck." Placement verified once again by ausculatation as well as putting out large amount of bile like drainage. Filled almost 2 cannisters since being brought up by ER. Patient says they also filled up 1-2 downstairs as well.
[2018-12-18] MEDS: metroNIDAZOLE 500MG/100ML 100 ML IV SCH ×3 (06:25→22:19)
[2018-12-18] MEDS: ACCU-CHEK COMFORT CURVE STRIP VI SCH ×5 (06:30→23:40)
[2018-12-18 06:53] LABS: Hematocrit 42.6 % (36.0-46.0); Hemoglobin 14.7 g/dL (12.2-16.2); Mean Corpuscular Hemoglobin 33.1 pg (28.0-32.0); Mean Corpuscular Hgb Conc. 34.6 g/dL (32.0-36.0); Mean Corpuscular Volume 95.8 fL (80.0-100.0); Platelet Count (auto) 221 10^3/uL (140-450); Red Blood Cells 4.45 10^6/uL (4.0-5.20); Red Cell Distribution Width 12.1 % (11.8-14.3); White Blood Cell 3.1 10^3/uL (4.4-10.8)
[2018-12-18 07:00] LABS: Basophils % (manual) 0 (0.0-2.0); Blast Cells 0; Eosinophils % (manual) 0 (0-7); Promyelocytes % 0; Reactive Lymphocytes 0
[2018-12-18 07:13] LABS: Calcium 8.5 mg/dL (8.5-10.1)
[2018-12-18 07:16] LABS: Albumin 3.5 g/dL (3.4-5.0); BUN/Creatinine Ratio 36.7
[2018-12-18] MEDS: FAMOTIDINE (10MG/ML) 2ML VL IV SCH ×2 (07:17→19:49)
[2018-12-18 07:18] LABS: Bilirubin, Total 0.4 mg/dL (0.2-1.0); Total Protein 7.2 g/dL (6.4-8.2)
[2018-12-18] MEDS: MORPHINE SULFATE 4 MG/ML SYR/VIAL IV PRN ×3 (07:18→20:24)
[2018-12-18 07:42] LABS: Potassium 2.8 mmol/L (3.5-5.1)
--- NOTE | 2018-12-18 07:43 | NUR ---
critical value Margaux hospitalist for critical potassium 2.8, waiting for call back. Addendum: 12/18/18 at 0755 by Cindy Olmos RN AGUSTINA PELLETIER CALLED, ORDERED POTASSIUM IV 40MEQ, ORDER READ BACK AND VERIFIED.
[2018-12-18] MEDS: POTASSIUM CHL 20MEQ/100ML 100 ML IV SCH ×5 (08:55→18:27)
[2018-12-18 08:59] VITALS: BP 99/79
--- NOTE | 2018-12-18 09:12 | NUR ---
DR. DAMICO AT BEDSIDE HE ORDERED ADDITIONAL KCL 60MEQ IV TOTAL OF 100MEQ.
[2018-12-18] MEDS ORDERED: GASTROGRAFIN 120 ML SOL ONE (09:21)
[2018-12-18 09:22] LABS: Band Neutrophils % (manual) 10; Lymphocytes % (manual) 30 (10.0-50.0); Monocytes % (manual) 17 (0-12)
[2018-12-18 09:23] LABS: Metamyelocytes % 3; Myelocytes % 1
--- NOTE | 2018-12-18 10:37 | NUR ---
DR. BERMAN CALLED, HE SAID TO NOTIFY HIM WITH SMALL BOWEL SERIES RESULT.
[2018-12-18] MEDS ORDERED: MORPHINE SULFATE 4 MG/ML SYR/VIAL IV PRN (10:45)
[2018-12-18] MEDS ORDERED: LORazepam 2MG/ML-1ML VIAL IV PRN (10:45)
--- NOTE | 2018-12-18 10:55 | NUR ---
CALLED RADIOLOGY FOR SMALL BOWEL SERIES, RADIOLOGY WILL TAKE THE PT IN AN HOUR.
[2018-12-18] MEDS: SOD CHL 0.9%/ KCL 40MEQ 1,000 ML IV SCH ×2 (12:52→20:45)
[2018-12-18 13:00] VITALS: BP 120/72
--- NOTE | 2018-12-18 14:12 | NUR ---
SPOKE WITH JOSS IN RADIOLOGY, PER JOSS THEY CANNOT DO THE SMALL BOWEL SERIES AT THIS TIME SINCE PT IS STILL PUTTING FLUID TO THE SUCTION, PT IS RISK FOR ASPIRATION.
--- NOTE | 2018-12-18 15:53 | NUR ---
RADIOLOGY RESCHEDULED THE PT FOR SMALL BOWEL SERIES TOMORROW, PER JOSS IN RADIOLOGY THEY CANNOT DO IT TODAY DUE TO FLUID STILL COMING OUT FROM THE SUCTION. PER JOSS DAMICO IS AWARE.
[2018-12-18 17:00] VITALS: BP 145/71
--- NOTE | 2018-12-18 18:00 | NUR ---
TOTAL NGT OUTPUT 650MLS, BROWN COLOR.
--- NOTE | 2018-12-18 19:25 | NUR ---
RECEIVED PATIENT LYING IN BED, AWAKE, ALERT, ORIENTED X4. NO S/S OF RESPIRATORY DISTRESS, DENIES SOB AND CHEST PAIN. ORIENTED ON PLAN OF CARE. BED IS LOCKED AND IN LOWEST LEVEL, SIDE RAILS UP X2, BED ALARM ON, CALL LIGHT WITHIN REACH. WILL CONTINUE TO MONITOR.
[2018-12-18] MEDS: cefTRIAXone 1GM/50ML D5W 50 ML IV SCH (20:23)
[2018-12-18 22:00] VITALS: BP 121/76
[2018-12-18] MEDS: LEVETIRACETAM INJ 500 MG in D5W 5% 100 ML IV SCH (22:02)
[2018-12-19] MEDS: SOD CHL 0.9%/ KCL 40MEQ 1,000 ML IV SCH ×2 (02:41→18:17)
[2018-12-19 05:15] VITALS: BP 135/78
[2018-12-19] MEDS: ACCU-CHEK COMFORT CURVE STRIP VI SCH ×2 (05:43→11:26)
[2018-12-19] MEDS: metroNIDAZOLE 500MG/100ML 100 ML IV SCH ×3 (05:45→22:13)
--- NOTE | 2018-12-19 06:51 | NUR ---
TOTAL OF 550 ML NGT OUTPUT, BROWNISH IN COLOR Addendum: 12/19/18 at 0705 by DOROTHY URIAS RN TOTAL OF 800 ML NGT OUTPUT VIA LOW INTERMITTENT SUCTION, BROWNISH IN COLOR
--- NOTE | 2018-12-19 07:08 | NUR ---
CARE ENDORSED TO AM SHIFT RN
--- NOTE | 2018-12-19 07:53 | NUR ---
PT OFF FLOOR TO RADIOLOGY FOR SMALL BOWEL SERIES
[2018-12-19] MEDS ORDERED: GASTROGRAFIN 120 ML SOL ONE (08:00)
[2018-12-19] MEDS: FAMOTIDINE (10MG/ML) 2ML VL IV SCH ×2 (10:31→19:42)
[2018-12-19] MEDS: LEVETIRACETAM INJ 500 MG in D5W 5% 100 ML IV SCH ×2 (10:31→21:49)
--- NOTE | 2018-12-19 10:51 | NUR ---
fever Temp 101.9, Dr. Beauchamp made aware she ordered tylenol 650mg suppository.
[2018-12-19] MEDS ORDERED: ACETAMINOPHEN 650 MG RECT SUPP PR ONE (11:30)
--- NOTE | 2018-12-19 11:35 | NUR ---
TEMPERATURE CHECKED 98.9, WILL CONTINUE TO MONITOR.
[2018-12-19 13:00] VITALS: BP 137/79
--- NOTE | 2018-12-19 13:41 | NUR ---
NOTED PT HAS CHANGE IN MENTATION, PT DOESN'T ANSWER QUESTIONS, PT ONLY OPEN HER EYES WHEN CALLED AND WILL NOD HER HEAD. DR. MINER MADE AWARE.
--- NOTE | 2018-12-19 14:31 | NUR ---
REFUSED NEUROLOGY CONSULT, DR. MINER MADE AWARE, SHE SAID TO CANCEL THE CONSULT AND WILL PROCEED WITH CT SCAN FIRST.
[2018-12-19 14:45] LABS: Potassium 3.5 mmol/L (3.5-5.1)
[2018-12-19 14:49] LABS: BUN/Creatinine Ratio 33.3; Calcium 8.6 mg/dL (8.5-10.1)
--- NOTE | 2018-12-19 15:15 | NUR ---
BOWEL MOVEMENT PT HAD BM, WATERY, BROWN IN MODERATE AMOUNT.
[2018-12-19 17:00] VITALS: BP 120/64
--- NOTE | 2018-12-19 17:55 | NUR ---
BOWEL MOVEMENT PT HAD BM, WATERY BROWN IN LARGE AMOUNT.
--- NOTE | 2018-12-19 17:57 | NUR ---
PAGED DR. BERMAN TO INFORM REGARDING SMALL BOWEL SERIES REPORT, WAITING FOR CALL BACK Addendum: 12/19/18 at 1800 by Cindy Olmos RN DR. BERMAN CALLED BACK AND MADE AWARE OF THE SMALL BOWEL SERIES REPORT, HE SAID TO KEEP THE NGT AND MONITOR OVERNIGHT.
--- NOTE | 2018-12-19 18:20 | NUR ---
NG TUBE TOTAL OUTPUT 100ML, BROWN COLOR.
--- NOTE | 2018-12-19 19:10 | NUR ---
RECEIVED PATIENT LYING IN BED. PATIENT IS WEAK, DOES NOT ANSWER AND DOES NOT FOLLOW, OPENS HER EYES TO LOUD VOICE AND MOANS WHEN MODERATE PRESSURE APPLIED TO HER BODY. S/P GI SERIES, STILL WITH NGT CONNECTED TO LIS, DRAINING BROWNISH GASTRIC FLUID. STOOL AND URINE INCONTINENCE NOTED. NO S/S OF RESPIRATORY DISTRESS, V/S STABLE. BED IS LOCKED AND IN LOWEST LEVEL, SIDE RAILS UP X2, BED ALARM ON, CALL LIGHT WITHIN REACH. WILL CONTINUE TO MONITOR. Addendum: 12/20/18 at 0124 by DOROTHY URIAS RN ON 2 LPM NASAL CANNULA, SATURATING AT 99%
[2018-12-19] MEDS: cefTRIAXone 1GM/50ML D5W 50 ML IV SCH (19:44)
[2018-12-19 22:00] VITALS: BP 133/81
[2018-12-20] MEDS: SOD CHL 0.9%/ KCL 40MEQ 1,000 ML IV SCH ×2 (02:45→05:52)
[2018-12-20 05:00] VITALS: BP 131/83
[2018-12-20] MEDS: metroNIDAZOLE 500MG/100ML 100 ML IV SCH ×3 (05:52→21:48)
--- NOTE | 2018-12-20 07:00 | NUR ---
TOTAL OF 1,350 ML NGT OUTPUT VIA LOW INTERMITTENT SUCTION, BROWNISH IN COLOR
--- NOTE | 2018-12-20 07:10 | NUR ---
CARE ENDORSED TO AM SHIFT RN
[2018-12-20] MEDS: FAMOTIDINE (10MG/ML) 2ML VL IV SCH ×2 (08:45→19:48)
[2018-12-20 09:03] VITALS: BP 129/86
[2018-12-20] MEDS: POTASSIUM CHLORIDE 20 MEQ in D5W 5% 1,000 ML IV SCH ×2 (09:24→20:25)
[2018-12-20] MEDS: LEVETIRACETAM INJ 500 MG in D5W 5% 100 ML IV SCH ×2 (10:15→21:30)
--- NOTE | 2018-12-20 12:03 | NUR ---
Nutrition Assessment Notes please see attached link for complete assessment Est. Needs BW [id number] kcal (25-30 kcal/kgBW), 56-67 gms pro (1.0-1.2 gms/kgBW). Will continue to monitor pertinent labs and reassess nutrient need prn Addendum: 12/20/18 at [address] Amended: Links added.
[2018-12-20 13:24] VITALS: BP 147/90
--- NOTE | 2018-12-20 14:52 | NUR ---
FEVER TEMP 102.0, DR. MINER MADE AWARE, SHE ORDERED TYLENOL SUPPOSITORY. MADE AWARE PT HAS BEEN SLEEPING, DOES NOT OPEN HER EYES AND MOUTH. WILL CONTINUE TO MONITOR.
[2018-12-20] MEDS: ACETAMINOPHEN 650 MG RECT SUPP PR PRN (15:05)
--- NOTE | 2018-12-20 15:06 | NUR ---
COOLING MEASURES DONE, WILL CONTINUE TO MONITOR.
--- NOTE | 2018-12-20 15:15 | NUR ---
Influenza swab sent to lab
[2018-12-20] MEDS: COPAXONE 40 MG SC SCH (16:44)
[2018-12-20 17:02] VITALS: BP 141/78
--- NOTE | 2018-12-20 17:55 | NUR ---
PT WOKE UP OPEN HER EYES, ABLE TO TOLERATE ICE CHIPS AND PT FOLLOWS COMMAND BUT DOESN'T TALK.
--- NOTE | 2018-12-20 18:00 | NUR ---
TEMPERATURE CHECKED 98.5.
--- NOTE | 2018-12-20 19:30 | NUR ---
RECEIVED PATIENT LYING IN BED, AWAKE AND ALERT, WITH MINIMAL VERBAL RESPONSE, DOES NOT FOLLOW COMMAND. FAMILY AT BEDSIDE. NO S/S OF RESPIRATORY DISTRESS. BED IS LOCKED AND IN LOWEST LEVEL, SIDE RAILS UP X2, BED ALARM ON, CALL LIGHT WITHIN REACH. WILL CONTINUE TO MONITOR.
--- NOTE | 2018-12-20 19:31 | NUR ---
PAGED HOSPITALIST FOR CRITICAL RESULT; SODIUM LEVEL 163
--- NOTE | 2018-12-20 19:35 | NUR ---
RECEIVED ORDER FROM AGUSTINA TOBAR; GIVE FREE WATER 250 ML PO Q6H AND REPEAT BMP IN AM
[2018-12-20] MEDS: cefTRIAXone 1GM/50ML D5W 50 ML IV SCH (19:48)
[2018-12-20 22:00] VITALS: BP 134/78
[2018-12-21] MEDS: POTASSIUM CHLORIDE 20 MEQ in D5W 5% 1,000 ML IV SCH ×2 (05:27→14:52)
[2018-12-21] MEDS: metroNIDAZOLE 500MG/100ML 100 ML IV SCH ×3 (05:32→22:23)
[2018-12-21 05:47] VITALS: BP 143/86
--- NOTE | 2018-12-21 07:18 | NUR ---
CARE ENDORSED TO AM SHIFT RN
[2018-12-21 07:44] LABS: Potassium 3.5 mmol/L (3.5-5.1)
--- NOTE | 2018-12-21 07:45 | NUR ---
OPENING NOTE ASSUMED CARE OF PATIENT. PATIENT IS NONVERBAL. NO SIGNS OF SOB/DISTRESS NOTED. BED SET TO LOWEST POSITION/LOCKED, BEDSIDE RAILS UP X2, CALL LIGHT WITH IN REACH, BED ALARM ON. INSTRUCTED PATIENT TO CALL FOR ASSISTANCE. DISCUSSED POC. WILL CONTINUE TO MONITOR Q 1HR AND PRN.
[2018-12-21 07:46] LABS: BUN/Creatinine Ratio 25.8
[2018-12-21 09:00] VITALS: BP 146/85
[2018-12-21] MEDS: FAMOTIDINE (10MG/ML) 2ML VL IV SCH ×2 (09:31→20:10)
[2018-12-21] MEDS: LEVETIRACETAM INJ 500 MG in D5W 5% 100 ML IV SCH ×2 (09:40→22:06)
[2018-12-21 13:00] VITALS: BP 134/80
[2018-12-21] MEDS: HYDROmorphone HCL 2 MG/ML VL IV PRN ×2 (14:53→21:22)
--- NOTE | 2018-12-21 16:07 | NUR ---
assessment Patient is a 62 year old female who is not speaking at this time. Prior to admission patient lived home alone and functioned with assistance from her daughter and caregiver per patients Wilton Loja [phone]. Per Wilton patient will need SNF on discharge. Patients pcp is Dr. Wilson. Patient has a fww, and an electric wheelchair for home use. Wilton informed me their daughter Tanesha comes over daily to help with anything she may need. Patient does not have a POA or an advanced directive. I have offered Wilton information on POA and advanced directives. I informed Wilton of consult that patient lives alone and request help with ADL's. Wilton is requesting SNF on discharge. Wilton states the last time patient went to SNF it really helped her. I will inform . Addendum: 12/21/18 at 1612 by Erlinda VALENTINE Amended: Links added.
[2018-12-21 17:00] VITALS: BP 124/76
--- NOTE | 2018-12-21 19:45 | NUR ---
Opening Shift Note Assumed care of patient, awake and alert, communicates by nodding, not verbalizing. No S/S of distress/SOB or pain. Instructed on POC and to call for assist PRN, will continue to monitor for changes Q1hr and PRN.
[2018-12-21] MEDS: cefTRIAXone 1GM/50ML D5W 50 ML IV SCH (20:11)
--- NOTE | 2018-12-21 21:20 | NUR ---
Patient crying, saying help me, help me. When asked when she's in pain, she nodded. Pain medication given per prn for pain. Care continued.
[2018-12-21 21:43] VITALS: BP 125/75
--- NOTE | 2018-12-21 22:20 | NUR ---
Patient crying and shaking. Vitals taken, within patient's baseline. Oxygen saturation at 97% on O2 at 2 LPM. Ativan IV given per prn for anxiety. Care continued.
[2018-12-21] MEDS: LORazepam 2MG/ML-1ML VIAL IV PRN (22:23)
--- NOTE | 2018-12-21 23:30 | NUR ---
Patient more relaxed at this time, able to talk in complete sentence, smiling. Care continued.
[2018-12-22] MEDS: POTASSIUM CHLORIDE 20 MEQ in D5W 5% 1,000 ML IV SCH ×3 (02:00→22:25)
--- NOTE | 2018-12-22 04:50 | NUR ---
Patient crying and shaking again. Vitals within patient's baseline. Patient's oxygen saturation 97-98% on O2 at 2LPM.When asked if she's in pain, patient nodded. Pain medication given per prn for pain. Patient gagging, when asked if she wanted nausea medication, patient nodded. Nausea medication given per prn for nausea. Care continued.
[2018-12-22] MEDS: HYDROmorphone HCL 2 MG/ML VL IV PRN ×2 (04:54→18:22)
[2018-12-22] MEDS: PROMETHAZINE HCL 25 MG/ML 1ML IV PRN (05:04)
[2018-12-22 05:21] VITALS: BP 143/67
[2018-12-22] MEDS: metroNIDAZOLE 500MG/100ML 100 ML IV SCH ×3 (06:37→21:02)
--- NOTE | 2018-12-22 07:00 | NUR ---
Black tarry stool noted. Report to be given to oncoming RN.
--- NOTE | 2018-12-22 07:15 | NUR ---
No significant change in the patient's demeanor. Report given to oncoming RN.
--- NOTE | 2018-12-22 07:45 | NUR ---
OPENING NOTE ASSUMED CARE OF PATIENT. PATIENT ALERT. NO SIGNS OF SOB/DISTRESS NOTED. BED SET TO LOWEST POSITION/LOCKED, BEDSIDE RAILS UP X2, CALL LIGHT WITH IN REACH, BED ALARM ON. SITTER AT BEDSIDE. INSTRUCTED PATIENT TO CALL FOR ASSISTANCE. DISCUSSED POC. WILL CONTINUE TO MONITOR Q 1HR AND PRN.
[2018-12-22 09:13] VITALS: BP 133/78
[2018-12-22] MEDS: COPAXONE 40 MG SC SCH (10:00)
[2018-12-22] MEDS: LEVETIRACETAM INJ 500 MG in D5W 5% 100 ML IV SCH ×2 (12:21→22:05)
[2018-12-22] MEDS: FAMOTIDINE (10MG/ML) 2ML VL IV SCH ×2 (12:21→19:56)
[2018-12-22 13:00] VITALS: BP 130/81
--- NOTE | 2018-12-22 13:46 | NUR ---
Nutrition Follow-up Notes Wt.: 55.8 kg as of yesterday. Pt's on oxygen via nasal cannula, asleep, no immediate family member at bedside except for sitter when rounded this morning. Pt's no signs of distress noted earlier, currently on Clear Liquid diet with good PO intake aeb 75% ave. consumed meals (x6) in last 2.5 days. Est. Needs BW [id number] kcal (25-30 kcal/kgBW), 56-67 gms pro (1.0-1.2 gms/kgBW). Will continue to monitor pertinent labs and reassess nutrient need prn Labs: Gluc 145 H, Na 155 H, Cl 122 H, Ca 8.0 L Skin: Silver scale 15, mod risk, skin intact per financial systems administrator. GI: Pt had 4x BM this morning per financial systems administrator. PES: Altered nutrition related lab values r/t acute/chronic medical condition aeb hyperglycemia, hypernatremia,hyperchloremia, elev. BUN level, hypocalcemia Will continue to monitor PO intake, skin status, pertinent labs and weight trend. F/u in 3 to 5 days. Rec.: 1.) Advance gradually oral diet (with Ensure Enlive 1 carton BID) when medically appropriate. 2.) If still on Clear Liquid diet, consider Ensure Enlive 1 carton TID. 3.) Continue close supervision during meals. 4.) Refer pt to RD for further nutrition education and weight monitoring upon discharge. 5.) Continue current plan of care.
--- NOTE | 2018-12-22 14:08 | NUR ---
Called [employer] [phone] and left message asking for assistance with SNF authorization for this patient. Also tried a separate [employer] number [phone] and was unable to speak with an actual person.
--- NOTE | 2018-12-22 15:21 | NUR ---
IV removal Right FA 20 gauge IV infiltrated. IV cath DC'd with sterile technique, catheter fully intact. Pressure dressing applied to site. Patient tolerated procedure well. Discharged with aftercare instructions per MD.
[2018-12-22] MEDS ORDERED: TPN PER PHARMACY 0 ML IV SCH (16:15)
[2018-12-22 17:32] VITALS: BP 145/83
[2018-12-22] MEDS: ENSURE CLEAR Apple 8oz Carton PO SCH (18:00)
[2018-12-22 19:02] LABS: Magnesium 2.2 mg/dL (1.6-2.6); Phosphorus 3.1 mg/dL (2.5-4.90)
[2018-12-22 19:07] LABS: Calcium 8.1 mg/dL (8.5-10.1); Potassium 3.5 mmol/L (3.5-5.1)
[2018-12-22 19:10] LABS: BUN/Creatinine Ratio 16.7; Bilirubin, Total 0.7 mg/dL (0.2-1.0); Total Protein 5.9 g/dL (6.4-8.2)
--- NOTE | 2018-12-22 19:55 | NUR ---
assumed care, pt. awake, sitter at bedside, no c/o pain, no sob.
[2018-12-22] MEDS: cefTRIAXone 1GM/50ML D5W 50 ML IV SCH (19:56)
[2018-12-22] MEDS ORDERED: DEXTROSE (50%) 50ML SYRG IV SCH (20:00)
[2018-12-22] MEDS: ACCU-CHEK COMFORT CURVE STRIP VI SCH (20:00)
[2018-12-22] MEDS: InsuLIN REG 1unit/0.01ml Soln (100units/ml) SC SCH (20:00)
[2018-12-22] MEDS ORDERED: AMINO ACID INFUSION IN D10W 1,000 ML IV NR (20:45)
[2018-12-22 21:30] VITALS: BP 139/92
[2018-12-23] MEDS: HYDROmorphone HCL 2 MG/ML VL IV PRN (00:24)
[2018-12-23] MEDS: InsuLIN REG 1unit/0.01ml Soln (100units/ml) SC SCH ×3 (01:55→18:00)
[2018-12-23] MEDS: ACCU-CHEK COMFORT CURVE STRIP VI SCH ×3 (01:56→18:00)
[2018-12-23 04:30] VITALS: BP 144/84
[2018-12-23] MEDS: metroNIDAZOLE 500MG/100ML 100 ML IV SCH ×3 (05:31→23:29)
[2018-12-23 06:23] LABS: Basophils # (auto) 0 uL; Basophils % (auto) 0.4 % (0.0-2.0); Eosinophils # (auto) 0.2 uL; Eosinophils % (auto) 4.3 % (0.0-7.0); Hematocrit 31.8 % (36.0-46.0); Hemoglobin 10.9 g/dL (12.2-16.2); Lymphocytes % (auto) 18.3 % (10.0-50.0); Mean Corpuscular Hemoglobin 33.2 pg (28.0-32.0); Mean Corpuscular Hgb Conc. 34.2 g/dL (32.0-36.0); Mean Corpuscular Volume 97.1 fL (80.0-100.0); Monocytes # (auto) 0.5 uL; Monocytes % (auto) 9.7 % (0.0-12.0); Neutrophils # (auto) 3.6 uL; Neutrophils % (auto) 67.3 % (37.0-80.0); Nucleated Red Blood Cells % 0.1 %; Platelet Count (auto) 97 10^3/uL (140-450); Red Blood Cells 3.27 10^6/uL (4.0-5.20); Red Cell Distribution Width 11.7 % (11.8-14.3); White Blood Cell 5.4 10^3/uL (4.4-10.8)
[2018-12-23 06:54] LABS: Albumin 2.1 g/dL (3.4-5.0); Alkaline Phosphatase 41 U/L (45-117); BUN/Creatinine Ratio 18.6; Bilirubin, Total 0.4 mg/dL (0.2-1.0); Blood Urea Nitrogen 8 mg/dL (7-18); Carbon Dioxide 23 mmol/L (21-32); GFR African American 193 mL/min; GFR Non-African American 159 mL/min; Glucose 232 mg/dL (74-106); Magnesium 1.6 mg/dL (1.6-2.6); Pre Albumin 11.8 mg/dL (20.0-40.0); Triglycerides 68 mg/dL (< 150)
--- NOTE | 2018-12-23 07:44 | NUR ---
RECEIVED CRITICAL LAB, POTASSIUM 2.6, PAGED HOSPITALIST AWAITING CALL BACK.
[2018-12-23 07:45] LABS: Potassium 2.6 mmol/L (3.5-5.1); Sodium 144 mmol/L (136-145)
[2018-12-23 07:46] LABS: Alanine Aminotransferase 39 U/L (13-56); Anion Gap 9 (5-15); Aspartate Aminotransferase 21 U/L (15-37); Chloride 112 mmol/L (98-107)
--- NOTE | 2018-12-23 07:50 | NUR ---
OPENING NOTE ASSUMED CARE OF PATIENT. PATIENT RESTLESS AND CONFUSED. BED SET TO LOWEST POSITION/LOCKED, BEDSIDE RAILS UP X2, CALL LIGHT WITH IN REACH, BED ALARM ON. SITTER AT BEDSIDE. WILL CONTINUE TO MONITOR Q 1HR AND PRN.
[2018-12-23] MEDS: ENSURE CLEAR Apple 8oz Carton PO SCH ×3 (08:00→18:00)
[2018-12-23 08:07] LABS: Phosphorus < 2.5 mg/dL (2.5-4.90)
[2018-12-23 09:00] VITALS: BP 136/79
[2018-12-23] MEDS: FAMOTIDINE (10MG/ML) 2ML VL IV SCH ×2 (09:05→23:29)
[2018-12-23] MEDS: LEVETIRACETAM INJ 500 MG in D5W 5% 100 ML IV SCH ×2 (09:06→23:21)
[2018-12-23] MEDS ORDERED: POTASSIUM CHL 20MEQ/100ML 100 ML IV SCH (09:15)
[2018-12-23 09:28] LABS: INR 1.29 (0.9-1.15); Partial Thromboplastin Time 26.9 sec (23.64-32.05)
[2018-12-23] MEDS ORDERED: POTASSIUM CHL 10MEQ/100ML 100 ML IV SCH (11:00)
[2018-12-23] MEDS: POTASSIUM CHLORIDE 20 MEQ in D5W 5% 1,000 ML IV SCH (11:49)
[2018-12-23] MEDS: POTASSIUM CHL 20MEQ/100ML 100 ML IV SCH ×3 (11:58→23:29)
[2018-12-23 13:00] VITALS: BP 151/83
[2018-12-23] MEDS: MORPHINE SULFATE 4 MG/ML SYR/VIAL IV PRN (14:21)
--- NOTE | 2018-12-23 14:48 | NUR ---
re-assessment Per consult SNF placement. Patients has requested [facility]. Per Anahy at [facility] she cannot take patient. MD order has been re-directed to [facility]. [facility] declined also. [facility] is reviewing and will call us back if they receive auth from insurance. Addendum: 12/23/18 at 1452 by Erlinda Ulrich Amended: Links added.
[2018-12-23] MEDS ORDERED: LIDOCAINE 1% (LOCAL ANESTH.) PF 5ml SDV ID ONE (15:15)
--- NOTE | 2018-12-23 15:15 | NUR ---
PICC line placement Patient educated on need for PICC line placement by primary RN. All risks and benefits explained and all questions and concerns addressed prior to procedure. Noted past medical history and allergies with no contraindications. INR and Plt counts within acceptable range. 5 fr PICC line inserted via right basilic vein using [employer] US and Tip Location System. Sterile technique with maximum barrier precautions utilized. Blood return obtained from each of the two lumens and each flushed easily with NS using proper technique. PICC secured with Stat-lock; biodisc and occlusive dressing applied. Stat portable chest x-ray obtained for PICC tip placement. *Baseline Arm Circumference 24 cm. *Internal Length 39 cm. *External Length 0 cm. *PICC lot #[id number]. Note: EBL 5mls.
[2018-12-23 17:00] VITALS: BP 154/100
--- NOTE | 2018-12-23 17:28 | NUR ---
PICC LINE MEASUREMENTS S/P REPOSITION DUE TO EXTENSIVE LENGHT. *Baseline Arm Circumference 24 cm. *Internal Length 36 cm. *External Length 3 cm. *PICC lot #[id number].
--- NOTE | 2018-12-23 18:23 | NUR ---
OKAY to Use PICC Line X-ray completed.
--- NOTE | 2018-12-23 19:30 | NUR ---
Opening Shift Note Assumed care of patient, awake and alert to self. Sitter noted at bedside for safety precautions. Family noted at bedside. No S/S of distress/SOB or pain noted. Instructed on plan of care and to call for assistance as needed, patient unable to verbalize understanding, reinforcement needed. Bed is locked in lowest position, side rails x 2 are up, and call light is within reach.
[2018-12-23] MEDS ORDERED: PPN PER PHARMACY IV NR ×10 (20:00)
[2018-12-23] MEDS: cefTRIAXone 1GM/50ML D5W 50 ML IV SCH (20:17)
--- NOTE | 2018-12-23 20:30 | NUR ---
IV insertion IV access obtained, via clean sterile technique by inserting 20 gauge catheter at left AC after 1 attempt. IV secured properly. No trauma to site. Patient tolerated well.
[2018-12-23 22:00] VITALS: BP 125/78
[2018-12-23] MEDS ORDERED: POTASSIUM CHL 20MEQ/100ML 100 ML IV ONE (23:26)
--- NOTE | 2018-12-24 00:05 | NUR ---
IV insertion IV access obtained, via clean sterile technique by inserting 20 gauge catheter at right forearm after 1 attempt. IV secured properly. No trauma to site. Patient tolerated well.
--- NOTE | 2018-12-24 00:07 | NUR ---
PAGED DR. WILSON RE: POTASSIUM ADMINISTRATION Paged Dr. Wilson regarding potassium administration. Awaiting call back.
[2018-12-24] MEDS: ACCU-CHEK COMFORT CURVE STRIP VI SCH ×4 (00:16→17:16)
[2018-12-24] MEDS: SODIUM CHLOR 0.9% PF (SALINE LOCK) 10ML VIAL/SYR IV SCH ×3 (00:16→22:48)
--- NOTE | 2018-12-24 00:39 | NUR ---
ORDERS RECEIVED FOR UPGRADE TO TELE MONITORING Orders received from Dr. Wilson to place patient on continuous telemetry monitoring.
[2018-12-24] MEDS ORDERED: POTASSIUM CHL 20MEQ/100ML 100 ML IV ONE (03:00)
[2018-12-24 05:00] VITALS: BP 146/92
[2018-12-24] MEDS: metroNIDAZOLE 500MG/100ML 100 ML IV SCH ×3 (05:20→21:04)
[2018-12-24] MEDS: POTASSIUM CHLORIDE 20 MEQ in D5W 5% 1,000 ML IV SCH ×2 (05:20→20:00)
[2018-12-24 05:21] LABS: Albumin 2.8 g/dL (3.4-5.0); Calcium 8.3 mg/dL (8.5-10.1); Magnesium 2.3 mg/dL (1.6-2.6); Potassium 4.2 mmol/L (3.5-5.1)
[2018-12-24 05:24] LABS: Bilirubin, Total 0.4 mg/dL (0.2-1.0); Phosphorus 3.3 mg/dL (2.5-4.90); Total Protein 5.9 g/dL (6.4-8.2)
[2018-12-24] MEDS: InsuLIN REG 1unit/0.01ml Soln (100units/ml) SC SCH ×4 (05:56→17:16)
[2018-12-24] MEDS: FAMOTIDINE (10MG/ML) 2ML VL IV SCH ×3 (06:28→19:52)
--- NOTE | 2018-12-24 06:57 | NUR ---
CLOSING SHIFT NOTE Patient is laying in bed with even and unlabored breathing. No S/S of distress noted. Patient is running TPN at 44ml/hr to PICC on right upper arm. Sitter noted at bedside for safety precautions. Bed is locked in lowest position, side rails x 2 are up, and call light is within reach. Addendum: 12/24/18 at 0659 by YESSENIA RICE RN RN Will endorse patient care to day shift RN.
--- NOTE | 2018-12-24 07:30 | NUR ---
Opening Shift Note Assumed care of patient, awake and alert. No S/S of distress/SOB or pain. Instructed on POC and to call for assist PRN, will continue to monitor for changes Q1hr and PRN. Bed in low and locked position, rails up x2, no-slip socks on. Sitter at bedside.
--- NOTE | 2018-12-24 07:37 | NUR ---
ORDERS RECEIVED Informed Dr. Wilson that patient woke up with wheezing to bilateral lower lobes. Orders for Albuterol 0.5 qid received. Order verified.
[2018-12-24] MEDS: ENSURE CLEAR Apple 8oz Carton PO SCH ×3 (08:00→18:00)
[2018-12-24 09:00] VITALS: BP 115/73
[2018-12-24] MEDS: LEVETIRACETAM INJ 500 MG in D5W 5% 100 ML IV SCH ×2 (09:15→22:48)
[2018-12-24] MEDS: COPAXONE 40 MG SC SCH (09:16)
--- NOTE | 2018-12-24 10:01 | NUR ---
Pt does not respond to questions being asked. Pt advised would be doing PROM exercises while lying supine in bed, no response given Pt recd PROM exercises for bilat UE's and LE's, completed x 10 reps for each activity. Addendum: 12/24/18 at 1005 by Morena Harrington PT Amended: Links added.
[2018-12-24] MEDS ORDERED: ALBUTEROL SULF 2.5 MG/0.5ML(0.5%) NEB SOLN NEB SCH (12:00)
--- NOTE | 2018-12-24 12:07 | NUR ---
Nutrition consult/Follow-up Notes Wt.: 59.4 kg Pt's on oxygen via nasal cannula, asleep, no immediate family member at bedside except for sitter when rounded this morning. Pt's no signs of distress noted earlier, currently on Clear Liquid diet with ensure clear 1carton tid with inadequate PO of < 50% x 4 per RN doc. pt also initiated on PN support @ 44 ml/hr providing 640 kcals and 50 gm proteins 440 NCP. pt with inadequate PN support as it meets 38-45% kcals and 74-89% proteins. Est. Needs BW [id number] kcal (25-30 kcal/kgBW), 56-67 gms pro (1.0-1.2 gms/kgBW). Will continue to monitor pertinent labs and reassess nutrient need prn Labs: GLU 113 H, CA 8.3 L, ALB 2.8 L, PREALB 11.8 L, TG wnl Skin: Silver scale 15, mod risk, skin intact per insulator technician. GI: Pt had 1 BM this morning per insulator technician. PES: Altered nutrition related lab values r/t acute/chronic medical condition aeb hyperglycemia, hypernatremia,hyperchloremia, elev. BUN level, hypocalcemia Will continue to monitor PO intake, PN tolerance, skin status, pertinent labs and weight trend. F/u in 2-3 days. Rec.: 1.) Advance gradually oral diet when medically appropriate. 2.) consdier to advance PN support to meet > 75% of needs if pt continues to be on clear liq 3.) Continue close supervision during meals. 4.) Refer pt to RD for further nutrition education and weight monitoring upon discharge. 5.) Continue current plan of care.
[2018-12-24 13:00] VITALS: BP 134/82
--- NOTE | 2018-12-24 13:00 | NUR ---
FAMILY AT BEDSIDE UPDATED ON PLAN OF CARE
--- NOTE | 2018-12-24 13:20 | NUR ---
Respiratory note: DR. BUSH CALLED REGARDING INVALID ALBUTEROL DOSE ORDER. STAFF ARE ON LUNCH UNTIL 2:00 PM. OFFICE WILL BE CALLED BACK AGAIN AFTER 2. MED NEB TX HELD. NO SOB NOTED. POX 97% ON RA, HR 93, RR 16. B/S ARE CLEAR THROUGHOUT. KIESHA BRAGA HAS BEEN MADE AWARE.
[2018-12-24] MEDS: MORPHINE SULFATE 4 MG/ML SYR/VIAL IV PRN ×2 (13:30→19:53)
[2018-12-24] MEDS ORDERED: ALBUTEROL SULF 2.5 MG/0.5ML(0.5%) NEB SOLN NEB PRN (14:30)
[2018-12-24 17:00] VITALS: BP 109/90
--- NOTE | 2018-12-24 18:42 | NUR ---
Respiratory note: ASSESSED PT FOR PRN MED NEB AT THIS TIME, PT SLEEPING AT THIS TIME, NO RESP DISTRESS NOTED, NO TX INDICATED, PULSE OX 97% ON RA, HR 105, RR 20, BILATERAL BS CLEAR, RN AT BEDSIDE
--- NOTE | 2018-12-24 19:20 | NUR ---
Opening Shift Note Assumed care of patient, awake and alert to self. Sitter noted at bedside for safety precautions. No S/S of distress/SOB or pain noted. Instructed on plan of care and to call for assistance as needed, patient unable to verbalize understanding, reinforcement needed. Bed is locked in lowest position, side rails x 2 are up, and call light is within reach.
[2018-12-24] MEDS: cefTRIAXone 1GM/50ML D5W 50 ML IV SCH (19:53)
[2018-12-24] MEDS ORDERED: PPN PER PHARMACY IV NR ×8 (20:00)
[2018-12-24 20:14] VITALS: BP 109/90
[2018-12-24 21:53] VITALS: BP 132/85
[2018-12-25] MEDS: ACCU-CHEK COMFORT CURVE STRIP VI SCH ×4 (00:45→17:19)
[2018-12-25 03:29] LABS: Albumin 2.9 g/dL (3.4-5.0); BUN/Creatinine Ratio 28.6; Calcium 8.2 mg/dL (8.5-10.1); Magnesium 2.4 mg/dL (1.6-2.6); Phosphorus 3.9 mg/dL (2.5-4.90); Potassium 3.9 mmol/L (3.5-5.1)
[2018-12-25 03:31] LABS: Bilirubin, Total 0.4 mg/dL (0.2-1.0)
[2018-12-25 04:59] VITALS: BP 114/89
[2018-12-25] MEDS: metroNIDAZOLE 500MG/100ML 100 ML IV SCH ×3 (05:24→21:56)
[2018-12-25] MEDS: InsuLIN REG 1unit/0.01ml Soln (100units/ml) SC SCH ×4 (05:25→17:31)
[2018-12-25] MEDS: POTASSIUM CHLORIDE 20 MEQ in D5W 5% 1,000 ML IV SCH (05:39)
--- NOTE | 2018-12-25 06:00 | NUR ---
RECEIVED PATIENT FROM YESSENIA POP VIA HOSPITAL BED. PATIENT TOLERATED WELL. NO S/S OF DISTRESS NOTED. DENIED PAIN FOR NOW. PATIENT ALERT TO HERSELF. PICC LINE IN PLACE RUNNING WELL WITH TPN AND FLUID. BED IN LOWEST POSITION WITH PADDED SIDE RAILS UP X 2. CALL CANTRELL WITHIN REACH. ALARM ON. SITTER AT BEDSIDE FOR SAFETY. CONTINUE TO MONITOR.
--- NOTE | 2018-12-25 06:00 | NUR ---
ENDORSED PATIENT CARE TO LEA RN Patient care endorsed to eLa RN. No S/S of distress/SOB or pain noted at this time. Patient is laying in bed with even and unlabored breathing. Bed is locked in lowest position, side rails x 2 are, up call light is within reach, and sitter is at bedside for safety precaution.
--- NOTE | 2018-12-25 07:30 | NUR ---
Opening Shift Note Assuming care of patient. Patient is resting in bed. Patient denies pain. Patient's eyes are currently closed. Patient will not open eyes, however, patient does not respond to questions. Answers to questions are inappropriate, not corresponding to questions asked. Patient is aware that it is er birthday. Patient states that it is "my day." Instructed patient on the plan of care for today and to call for assistance as needed. Sitter at bedside for safety. Will continue to round hourly and as needed.
[2018-12-25] MEDS: ENSURE CLEAR Apple 8oz Carton PO SCH ×3 (08:00→18:00)
[2018-12-25 09:00] VITALS: BP 108/83
--- NOTE | 2018-12-25 10:16 | NUR ---
Respiratory note: ASSESSED PT FOR PRN TX PT WAS AWAKE AND ALERT NO RESP DISTRESS NOTED. HR 99, RR18, SPO2 98% ON ROOM AIR. BS ARE CLEAR AND DIMINISHED, NO INDICATION FOR TX AT THIS TIME. PT KNOWS TO HAVE RT PAGED IF TX IS NEEDED.
[2018-12-25] MEDS: SODIUM CHLOR 0.9% PF (SALINE LOCK) 10ML VIAL/SYR IV SCH ×2 (10:43→21:57)
[2018-12-25] MEDS: LEVETIRACETAM INJ 500 MG in D5W 5% 100 ML IV SCH ×2 (10:43→22:21)
--- NOTE | 2018-12-25 12:23 | NUR ---
Change Tele Monitor Called to Tele to notify of change in patient's room. New monitor sent and applied to patient at this time. Tele #[phone].
--- NOTE | 2018-12-25 14:35 | NUR ---
at bedside Dr. Wilson at bedside. Patient needs to eat. Order to advance diet.
[2018-12-25] MEDS: NEOSTIGMINE 1 MG/ML INJ (10mg/10ML VIAL) IV SCH ×3 (14:49→21:56)
--- NOTE | 2018-12-25 15:30 | NUR ---
Re: Lunch Patient has sat up in bed and fed herself emir.
--- NOTE | 2018-12-25 17:50 | NUR ---
Cleaning patient's bed Changing patient at this time. Patient has had a bowel movement, which makes 4 for today. Z guard applied.
--- NOTE | 2018-12-25 18:28 | NUR ---
Visitors at bedside Sitter at bedside trying to feed patient. Visitors and this RN are encouraging patient to eat, but patient is currently refusing.
--- NOTE | 2018-12-25 18:49 | NUR ---
Closing Note Patient is resting in bed, has been responding appropriately to some questions. Patient has visitors at bedside. Sitter in room. Will endorse care to the pulper RN.
--- NOTE | 2018-12-25 19:00 | NUR ---
Respiratory note: ASSESSED PT FOR PRN TX. PT IS CURRENTLY ON ROOM AIR: HR 89, RR 18, SPO2 97%. MED NEB TX NOT INDICATED AT THIS TIME. INFORMED PT IF SOB TO CONTACT RESPIRATORY FOR BREATHING TX. WILL CONTINUE TO MONITOR.
[2018-12-25] MEDS: FAMOTIDINE (10MG/ML) 2ML VL IV SCH (19:37)
[2018-12-25] MEDS: cefTRIAXone 1GM/50ML D5W 50 ML IV SCH (19:37)
--- NOTE | 2018-12-25 19:46 | NUR ---
RECEIVED PATIENT FROM DAY SHIFT RN. PATIENT RESTING IN BED. NO S/S OF DISTRESS AND PAIN NOTED. SITTER AT BEDSIDE DOING BED BATH. PATIENT TOLERATED WELL. PATIENT ALERT TO HERSELF ONLY, REORIENTED PATIENT PLACE, TIME, AND SITUATION. WILL TRY IT AGAIN LATER. POC INSTRUCTED AND ENCOURAGED PATIENT TO CALL FOR TECHNICAL SERVICES CONSULTANT IF NEEDED. BED IN LOWEST POSITION WITH PADDED SIDE RAILS UP X 2. CALL CANTRELL WITHIN REACH. ALARM ON. CONTINUE TO MONITOR FOR CHANGES Q1H AND PRN.
[2018-12-25] MEDS ORDERED: TPN PER PHARMACY IV NR ×8 (20:00)
[2018-12-25 21:30] VITALS: BP 138/79
[2018-12-25] MEDS ORDERED: LEVETIRACETAM 500 MG/5ML INJ IV ONE (22:04)
--- NOTE | 2018-12-25 22:37 | NUR ---
REPOSITIONED PATIENT. PATIENT TOLERATED WELL. ENCOURAGED PATIENT TO DRINK WATER. PATIENT SWALLOWED WELL. NO S/S OF ASPIRATION NOTED. CONTINUE TO MONITOR.
[2018-12-26] MEDS: InsuLIN REG 1unit/0.01ml Soln (100units/ml) SC SCH ×4 (00:37→18:00)
[2018-12-26] MEDS: ACCU-CHEK COMFORT CURVE STRIP VI SCH ×4 (00:37→18:02)
--- NOTE | 2018-12-26 00:37 | NUR ---
ACCU-CHECK, BS 129. NO COVERAGE. CONTINUE TO MONITOR.
[2018-12-26] MEDS: NEOSTIGMINE 1 MG/ML INJ (10mg/10ML VIAL) IV SCH ×6 (02:12→22:14)
[2018-12-26] MEDS: MORPHINE SULFATE 4 MG/ML SYR/VIAL IV PRN ×4 (04:23→22:30)
--- NOTE | 2018-12-26 04:23 | NUR ---
PATIENT MORNING AND CRYING FOR PAIN. MEDICATED PATIENT ORDERED. CONTINUE TO MONITOR.
[2018-12-26 04:30] VITALS: BP 120/80
--- NOTE | 2018-12-26 05:42 | NUR ---
CLEANED PATIENT. TOTAL LINEN CHANGED. PATIENT TOLERATED WELL. CONTINUE TO MONITOR.
[2018-12-26] MEDS: metroNIDAZOLE 500MG/100ML 100 ML IV SCH ×3 (05:52→22:15)
--- NOTE | 2018-12-26 05:53 | NUR ---
ACCU-CHECK, BS 128. NO COVERAGE. CONTINUE TO MONITOR.
[2018-12-26 07:28] LABS: Calcium 8.3 mg/dL (8.5-10.1); Potassium 3.4 mmol/L (3.5-5.1)
--- NOTE | 2018-12-26 07:30 | NUR ---
RECEIVED REPORT FORM NIGHT NURSE. PATIENT RESTING IN BED, NO DISTRESS NOTED. SITTER AT BEDSIDE. WILL CONTINUE TO MONITOR.
[2018-12-26 07:33] LABS: BUN/Creatinine Ratio 26.3; Bilirubin, Total 0.4 mg/dL (0.2-1.0); Phosphorus 3.2 mg/dL (2.5-4.90); Total Protein 6.1 g/dL (6.4-8.2)
[2018-12-26] MEDS: ENSURE CLEAR Apple 8oz Carton PO SCH ×3 (08:00→18:03)
--- NOTE | 2018-12-26 08:20 | NUR ---
VISITOR AT BEDSIDE, UPDATED ON POC.
[2018-12-26] MEDS: FAMOTIDINE (10MG/ML) 2ML VL IV SCH ×2 (08:29→20:36)
[2018-12-26 09:00] VITALS: BP 103/80
--- NOTE | 2018-12-26 09:08 | NUR ---
Respiratory note: PT ASSESSED FOR PRN MED NEB TX. HR 99, RR 18, POX 100% ON RA, BREATH SOUNDS ARE CLEAR. NO SIGNS OF ANY RESPIRATORY DISTRESS NOTED. ADVISED PT TO CALL IF TX IS NEEDED.
--- NOTE | 2018-12-26 09:31 | NUR ---
I spoke with Lanre [phone] [facility] Test Lab Technician regarding SNF placement-she is in the process of giving authorization to the SNF. Addendum: 12/26/18 at 2586 by Mary Quiroz RN Fax number to send clinical review to is [phone].
[2018-12-26] MEDS: LEVETIRACETAM INJ 500 MG in D5W 5% 100 ML IV SCH ×2 (09:40→22:15)
[2018-12-26] MEDS: POTASSIUM CHL 20MEQ/100ML 100 ML IV SCH ×4 (09:41→16:50)
--- NOTE | 2018-12-26 11:30 | NUR ---
Applied Z-Guard cream to perianal area.
[2018-12-26 13:00] VITALS: BP 123/72
[2018-12-26] MEDS: SODIUM CHLOR 0.9% PF (SALINE LOCK) 10ML VIAL/SYR IV SCH ×2 (13:04→22:15)
[2018-12-26 17:00] VITALS: BP 120/78
[2018-12-26 18:56] LABS: Basophils # (auto) 0.1 uL; Basophils % (auto) 0.8 % (0.0-2.0); Eosinophils # (auto) 0.3 uL; Eosinophils % (auto) 2.7 % (0.0-7.0); Hematocrit 38.9 % (36.0-46.0); Hemoglobin 13.3 g/dL (12.2-16.2); Lymphocytes # (auto) 1.8 uL; Lymphocytes % (auto) 18.3 % (10.0-50.0); Mean Corpuscular Hgb Conc. 34.1 g/dL (32.0-36.0); Mean Corpuscular Volume 96.8 fL (80.0-100.0); Monocytes # (auto) 1.3 uL; Monocytes % (auto) 13.3 % (0.0-12.0); Neutrophils # (auto) 6.3 uL; Neutrophils % (auto) 64.9 % (37.0-80.0); Platelet Count (auto) 216 10^3/uL (140-450); Red Blood Cells 4.01 10^6/uL (4.0-5.20); Red Cell Distribution Width 11.8 % (11.8-14.3); White Blood Cell 9.8 10^3/uL (4.4-10.8)
--- NOTE | 2018-12-26 19:00 | NUR ---
Opening Shift Note Report received from day shift RN. Assumed care of patient, awake and alert only to self. Sitter noted at bedside for safety precautions. Family at bedside. No S/S of distress/SOB or pain noted. Instructed on plan of care and to call for assistance as needed, patient unable to verbalize understanding, reinforcement needed. Bed is locked in lowest position, side rails up x 2, and call light is within reach.
[2018-12-26] MEDS ORDERED: TPN PER PHARMACY IV NR ×10 (20:00)
[2018-12-26] MEDS: POTASSIUM CHLORIDE 20 MEQ in D5W 5% 1,000 ML IV SCH (20:00)
[2018-12-26] MEDS: cefTRIAXone 1GM/50ML D5W 50 ML IV SCH (20:36)
[2018-12-27] MEDS: ACCU-CHEK COMFORT CURVE STRIP VI SCH ×4 (00:18→18:03)
[2018-12-27] MEDS: NEOSTIGMINE 1 MG/ML INJ (10mg/10ML VIAL) IV SCH ×5 (02:03→18:03)
[2018-12-27] MEDS: MORPHINE SULFATE 4 MG/ML SYR/VIAL IV PRN ×3 (02:42→14:41)
[2018-12-27] MEDS: InsuLIN REG 1unit/0.01ml Soln (100units/ml) SC SCH ×4 (06:00→18:00)
[2018-12-27] MEDS: metroNIDAZOLE 500MG/100ML 100 ML IV SCH ×3 (06:14→21:58)
[2018-12-27 06:41] LABS: Potassium 3.6 mmol/L (3.5-5.1)
[2018-12-27 06:48] LABS: Albumin 3.2 g/dL (3.4-5.0); BUN/Creatinine Ratio 26.8; Bilirubin, Total 0.4 mg/dL (0.2-1.0); Calcium 8.6 mg/dL (8.5-10.1); Magnesium 2.1 mg/dL (1.6-2.6); Phosphorus 4.2 mg/dL (2.5-4.90); Total Protein 6.6 g/dL (6.4-8.2)
--- NOTE | 2018-12-27 07:03 | NUR ---
patient is alert and oriented x3 with no distress noted, has some forgetfulness, verbalized she has pain all over, will medicate as ordered. she was repositioned and she participated, sitter at bedside, vs are stable, getting ready for breakfast. seizure precautions are in-place, suffers from ms.
--- NOTE | 2018-12-27 07:33 | NUR ---
Closing note Endorsed care to day shift RN. Patient laying in bed no s/s of distress or SOB noted. Sitter at bedside. Bed is locked in lowest position, side rails up x2, and call light is within reach.
[2018-12-27] MEDS: FAMOTIDINE (10MG/ML) 2ML VL IV SCH ×2 (07:39→20:26)
[2018-12-27] MEDS: ENSURE CLEAR Apple 8oz Carton PO SCH ×3 (07:40→18:03)
[2018-12-27 09:00] VITALS: BP 137/70
[2018-12-27] MEDS: COPAXONE 40 MG SC SCH (09:59)
[2018-12-27] MEDS: LEVETIRACETAM INJ 500 MG in D5W 5% 100 ML IV SCH ×2 (10:00→21:58)
[2018-12-27] MEDS: SODIUM CHLOR 0.9% PF (SALINE LOCK) 10ML VIAL/SYR IV SCH ×2 (10:00→21:58)
[2018-12-27 13:00] VITALS: BP 124/70
--- NOTE | 2018-12-27 13:18 | NUR ---
PT Patient refused to be OOB during PT visit this morning. KIESHA Staton was notified but still pt refuses to do PT. Addendum: 12/27/18 at 1319 by JAMIN XIAO PTT Amended: Links added.
--- NOTE | 2018-12-27 14:46 | NUR ---
Respiratory note: ASSESSED PT FOR PRN MEDNEB TX. HR 108, RR 20, POX 100% ON ROOM AIR. BREATH SOUNDS CLEAR THROUGHOUT. NO S/S OF RESPIRATORY DISTRESS. MEDNEB TX NOT INDICATED AT THIS TIME. WROTE RT NAME AND PAGER NUMBER ON WHITEBOARD, ADVISED PT TO CALL FOR RT IF FEELING SOB. RN AT BEDSIDE AND AWARE.
--- NOTE | 2018-12-27 15:24 | NUR ---
Nutrition Follow-up Notes Wt.: 55.9 kg as of yesterday. Pt's asleep, no immediate family member at bedside except for sitter during rounds this morning. Pt's no signs of distress noted earlier, currently on Mechanical Soft diet with Ensure Clear 1 carton TID, has inadequate PO intake aeb <50% ave. consumed meals (x6) in last 2.5 days. Pt's also on TPN @ 60 ml/hr providing 1600 kcal, 70 gms proteins 1320 NPCs and 19% Fat. Pt with adequate PN support d/t high initiation rate delivery of concentrated formula aeb current PN infusion meets 95% to 114% of est caloric needs and 89% to 104% of est protein needs. Noted pt's to receive tonight another TPN at same rate and nutrient concentration. Est. Needs BW [id number] kcal (25-30 kcal/kgBW), 67-78 gms pro (1.2-1.4 gms/kgBW d/t severe hypoalbuminemia). Will continue to monitor pertinent labs and reassess nutrient need prn Labs: Gluc 121 H, Cr 0.41 L, Alb 3.2 L; Prealb 11.8 L, Trig 68 wnl Skin: Silver scale 13, mod risk, skin intact per finishing wire sawyer. GI: Pt had 1 BM yesterday per finishing wire sawyer. PES: Altered nutrition related lab values r/t acute/chronic medical condition aeb hyperglycemia, hypernatremia,hyperchloremia, elev. BUN level, hypocalcemia Will continue to monitor PO intake, PN tolerance, skin status, pertinent labs and weight trend. F/u in 2 to 3 days. Rec.: 1.) Consider change Ensure Clear to Ensure Enlive 1 carton TID. 2.) Continue close supervision and feeding assistance during meals. 3.) If pt's PO intake remains inadequate (<75%), continue PN support that meets at least 75% of est nutrient needs. 4.) Refer pt to RD for further nutrition education and weight monitoring upon discharge. 5.) Continue current plan of care.
[2018-12-27 16:37] VITALS: BP 127/77
--- NOTE | 2018-12-27 17:52 | NUR ---
family at bedside, brother verbalized when the patient was going to resume home medications because patient has become more agitated, and forgetful. i paged dr rodgers, waiting for call back.
--- NOTE | 2018-12-27 18:48 | NUR ---
PT ASSESSED FOR PRN MED NEB TX, PT LAYING IN BED WITH NO DISTRESS NOTED. BS CLEAR. PT ON ROOM AIR SPO2 98%, HR 74, RR 16. SITTER AT BEDSIDE. NO TX INDICATED AT THIS TIME.
--- NOTE | 2018-12-27 19:30 | NUR ---
Opening Shift Note Assumed care of patient, oriented to self only, sitter at bedside. No S/S of distress/SOB or pain. Reorientation done, bed in lowest position, siderails up for safety, will continue to monitor for changes Q1hr and PRN.
[2018-12-27] MEDS: POTASSIUM CHLORIDE 20 MEQ in D5W 5% 1,000 ML IV SCH (20:00)
[2018-12-27] MEDS ORDERED: TPN PER PHARMACY IV NR ×8 (20:00)
[2018-12-27] MEDS: cefTRIAXone 1GM/50ML D5W 50 ML IV SCH (20:26)
[2018-12-27 22:00] VITALS: BP 122/76
--- NOTE | 2018-12-27 22:05 | NUR ---
Patient incontinent and soaked with urine. Complete linen changed. Noted redness and rashes on perianal area, applied z-guard. Patient able to turn to her side, will continue to monitor
[2018-12-28] MEDS: MORPHINE SULFATE 4 MG/ML SYR/VIAL IV PRN ×3 (00:44→11:35)
[2018-12-28] MEDS: LORazepam 2MG/ML-1ML VIAL IV PRN (03:39)
[2018-12-28 03:49] VITALS: BP 127/77
[2018-12-28 05:00] VITALS: BP 117/59
[2018-12-28] MEDS: metroNIDAZOLE 500MG/100ML 100 ML IV SCH ×3 (05:52→21:53)
[2018-12-28] MEDS: ACCU-CHEK COMFORT CURVE STRIP VI SCH ×4 (05:52→17:25)
[2018-12-28] MEDS: InsuLIN REG 1unit/0.01ml Soln (100units/ml) SC SCH ×4 (05:52→17:25)
--- NOTE | 2018-12-28 05:53 | NUR ---
Patient refused accucheck at this time. Per patient she said she's not diabetic. Explained the reason of blood sugar monitoring that she's on TPN but patient still refused. Per patient, she wanted to do it later, will endorse to morgan POP
--- NOTE | 2018-12-28 07:00 | NUR ---
Opening Shift Note Assumed care of patient, awake and alert. No S/S of distress/SOB or pain. Instructed on POC and to call for assist PRN, will continue to monitor for changes Q1hr and PRN.
[2018-12-28 08:03] LABS: Albumin 3.1 g/dL (3.4-5.0); BUN/Creatinine Ratio 26.8; Calcium 8.2 mg/dL (8.5-10.1); Potassium 3.6 mmol/L (3.5-5.1)
[2018-12-28 08:07] LABS: Bilirubin, Total 0.3 mg/dL (0.2-1.0); Phosphorus 3.4 mg/dL (2.5-4.90); Pre Albumin 24.1 mg/dL (20.0-40.0); Total Protein 6.2 g/dL (6.4-8.2)
[2018-12-28 09:00] VITALS: BP 112/65
--- NOTE | 2018-12-28 09:40 | NUR ---
BROUGHT 2 DOSES OF CAPAXONE FOR PATIENT. GAVE MEDS TO PATRICIA POP.
--- NOTE | 2018-12-28 09:40 | NUR ---
Respiratory note: PT ASSESSED FOR PRN MED NEB TX, NO TX INDICATED NOR DESIRED AT THIS TIME. SITTER NOTED AT BEDSIDE. HR 128 RR 16 SPO2 98% ON RA, PT STATES HER HR DOES RUN HIGH. BREATH SOUNDS ARE CLEAR T/O. NO SIGNS OF DISTRESS. RN AWARE TO HAVE RT PAGED IF NEEDED.
[2018-12-28] MEDS: FAMOTIDINE (10MG/ML) 2ML VL IV SCH ×2 (09:45→20:25)
[2018-12-28] MEDS: ENSURE CLEAR Apple 8oz Carton PO SCH ×3 (09:45→20:25)
[2018-12-28] MEDS: LEVETIRACETAM INJ 500 MG in D5W 5% 100 ML IV SCH ×2 (09:46→22:11)
[2018-12-28] MEDS: SODIUM CHLOR 0.9% PF (SALINE LOCK) 10ML VIAL/SYR IV SCH ×2 (09:47→21:53)
--- NOTE | 2018-12-28 10:20 | NUR ---
ASSUMED CARE OF PATIENT FROM KIESHA LOPEZ. PATIENT IS AWAKE AND ALERT X3 (PERSON, PLACE, SITUATION) WILL CONTINUE TO REORIENT PATIENT TO TIME. INSTRUCTED PATIENT ON POC, PATIENT VERBALIZED UNDERSTANDING. PATIENT HAS NO S/S OF DISTRESS/SOB OR PAIN. INSTRUCTED PATIENT ON POC. BED IS IN LOWEST POSITION WITH SIDE RAILS RAISED X2, BED WHEELS LOCKED, SITTER AT BEDSIDE, AND CALL LIGHT IS WITHIN REACH. WILL CONTINUE TO MONITOR.
--- NOTE | 2018-12-28 10:22 | NUR ---
REPORT GIVEN TO PATRICIA POP WHO WILL BE ASSUMING CARE OF PATIENT.
[2018-12-28 13:00] VITALS: BP 97/63
--- NOTE | 2018-12-28 13:00 | NUR ---
PATIENT'S HEART RATE IS 142 SINUS TACHYCARDIA. PAGED MD BUSH. AWAITING CALL BACK
[2018-12-28] MEDS: PROMETHAZINE HCL 25 MG/ML 1ML IV PRN (13:05)
--- NOTE | 2018-12-28 14:22 | NUR ---
PAGED MD BUSH AGAIN REGARDING HEART RATE. AWAITING CALL BACK.
[2018-12-28] MEDS ORDERED: SODIUM CHLORIDE 0.9% 500 ML IV ONE (14:50)
--- NOTE | 2018-12-28 14:50 | NUR ---
SPOKE WITH MD BUSH. INFORMED HIM OF PATIENT'S HEART RATE AND INFORMED HIM MORPHINE WAS GIVEN FOR PAIN AND NAUSEA. MD ORDERED 500 ML BOLUS TO BE GIVEN. WILL FOLLOW THROUGH WITH ORDERS.
--- NOTE | 2018-12-28 14:55 | NUR ---
500 ML BOLUS GIVEN. PATIENT'S HEART RATE IS 122 BPM. PATIENT STATES THE ROOM IS SPINNING, INFORMED MD BUSH. DR. BUSH STATED THAT IS NORMAL BECAUSE SHE HAS MULTIPLE SCLEROSIS. NO NEW ORDERS WERE GIVEN.
[2018-12-28 16:40] VITALS: BP 103/65
--- NOTE | 2018-12-28 19:10 | NUR ---
CLOSING SHIFT NOTE ENDORSE CARE TO PLATE AND WELD INSPECTOR RN JARED. INFORMED RN PATIENT'S HEART RATE IS IN THE 130s. MD BUSH IS AWARE. NO NEW ORDERS WERE GIVEN. PATIENT HAS NO S/S OF DISTRESS/SOB OR PAIN AT THIS TIME.
--- NOTE | 2018-12-28 19:45 | NUR ---
Opening Shift Note Assumed care of patient, oriented x3, cooperative at this time, sitter at bedside. No S/S of distress/SOB. Reorientation done, bed in lowest position, siderails up for safety, call light within reach, will continue to monitor for changes Q1hr and PRN.
[2018-12-28] MEDS ORDERED: TPN PER PHARMACY IV NR ×8 (20:00)
[2018-12-28] MEDS: cefTRIAXone 1GM/50ML D5W 50 ML IV SCH (20:25)
[2018-12-28] MEDS: POTASSIUM CHLORIDE 20 MEQ in D5W 5% 1,000 ML IV SCH (21:52)
[2018-12-28 22:00] VITALS: BP 101/68
[2018-12-28] MEDS ORDERED: COPAXONE 40 MG SC ONE (22:00)
[2018-12-29] MEDS: ACCU-CHEK COMFORT CURVE STRIP VI SCH ×5 (00:10→23:58)
--- NOTE | 2018-12-29 04:05 | NUR ---
Patient incontinent with urine, complete linen change done
[2018-12-29 05:54] VITALS: BP 127/92
[2018-12-29] MEDS: InsuLIN REG 1unit/0.01ml Soln (100units/ml) SC SCH ×5 (06:00→23:58)
[2018-12-29] MEDS: metroNIDAZOLE 500MG/100ML 100 ML IV SCH ×3 (06:15→22:06)
--- NOTE | 2018-12-29 08:59 | NUR ---
BOWLING BALL GRADER AND MARKER reports pt bp as 88/55, hr 128. Rechecked bp. Bp 91/58, hr 125. Pt is really confused, pt oriented to name only and keeps repeating the words, "no reds" in response to other questions. Put in order for new WBC count. WBC on was 5.4 and then 9.8 on the . called and left message for Dr Wilson notifying MD of bp, hr, confusion, and last WBC increase. notified MD of possible sepsis, awaiting response.
--- NOTE | 2018-12-29 09:28 | NUR ---
DR BUSH CALLED BACKMD AWARE, NEW ORDERS FOR ABG. WILL CONTINUE TO MONITOR.
[2018-12-29] MEDS: FAMOTIDINE (10MG/ML) 2ML VL IV SCH ×2 (09:42→20:24)
[2018-12-29] MEDS: ENSURE CLEAR Apple 8oz Carton PO SCH ×3 (09:42→18:04)
[2018-12-29] MEDS: LEVETIRACETAM INJ 500 MG in D5W 5% 100 ML IV SCH ×2 (09:42→22:07)
[2018-12-29] MEDS: SODIUM CHLOR 0.9% PF (SALINE LOCK) 10ML VIAL/SYR IV SCH ×2 (09:43→22:07)
[2018-12-29] MEDS: COPAXONE 40 MG SC SCH (09:43)
[2018-12-29 10:26] LABS: Basophils # (auto) 0 uL; Basophils % (auto) 0.3 % (0.0-2.0); Eosinophils # (auto) 0.1 uL; Eosinophils % (auto) 1.4 % (0.0-7.0); Hematocrit 36.8 % (36.0-46.0); Hemoglobin 12.5 g/dL (12.2-16.2); Lymphocytes # (auto) 1.2 uL; Lymphocytes % (auto) 11.8 % (10.0-50.0); Mean Corpuscular Hemoglobin 32.4 pg (28.0-32.0); Mean Corpuscular Volume 95.2 fL (80.0-100.0); Monocytes # (auto) 1.5 uL; Monocytes % (auto) 14.5 % (0.0-12.0); Neutrophils # (auto) 7.6 uL; Platelet Count (auto) 246 10^3/uL (140-450); Red Blood Cells 3.87 10^6/uL (4.0-5.20); Red Cell Distribution Width 11.5 % (11.8-14.3); White Blood Cell 10.5 10^3/uL (4.4-10.8)
--- NOTE | 2018-12-29 10:37 | NUR ---
PT COPAXONE BEING HELD BY PHARMACY. PHARMACY REQUESTS CLARIFICATION FROM MD TO ADMINISTER MEDICATION TODAY. WILL ASK MD WHEN HE COMES.
[2018-12-29 10:41] LABS: Albumin 2.9 g/dL (3.4-5.0); Calcium 8.1 mg/dL (8.5-10.1); Magnesium 2.2 mg/dL (1.6-2.6); Phosphorus 2.8 mg/dL (2.5-4.90); Potassium 3.5 mmol/L (3.5-5.1)
[2018-12-29 10:50] LABS: Bilirubin, Total 0.2 mg/dL (0.2-1.0); Total Protein 6.1 g/dL (6.4-8.2)
--- NOTE | 2018-12-29 11:04 | NUR ---
CALLED AND LEFT MESSAGE FOR DR BUSH, NOTIFIED MD PHARMACY NEEDS CLARIFICATION ON HOW OFTEN TO GIVE COPAXONE, AWAITING CALL BACK.
--- NOTE | 2018-12-29 11:40 | NUR ---
Nutrition Follow-up Notes Wt.: 58.8 kg Pt's asleep, no immediate family member at bedside except for sitter during rounds this morning. Pt's no signs of distress noted earlier, currently on Mechanical Soft diet with Ensure Clear 1 carton TID, has inadequate PO of < 50% x 6 per RN doc. Pt's also on TPN @ 60 ml/hr providing 1600 kcal, 70 gms proteins 1320 NPCs and 19% Fat. Pt with adequate PN support d/t high initiation rate delivery of concentrated formula aeb current PN infusion meets 95% to 114% of est caloric needs and 89% to 104% of est protein needs. Est. Needs BW [id number] kcal (25-30 kcal/kgBW), 67-78 gms pro (1.2-1.4 gms/kgBW d/t severe hypoalbuminemia). Will continue to monitor pertinent labs and reassess nutrient need prn Labs: GLU 115 H CA 8.2 L, LAB 3.1 L. Skin: Silver scale 15, mod risk, skin intact per manganese breaker. GI: Pt had 1 BM on 12/27 per manganese breaker. PES: Altered nutrition related lab values r/t acute/chronic medical condition aeb hyperglycemia, hypernatremia,hyperchloremia, elev. BUN level, hypocalcemia Will continue to monitor PO intake, PN tolerance, skin status, pertinent labs and weight trend. F/u in 2 to 3 days. Rec.: 1.) Consider change Ensure Clear to Ensure Enlive 1 carton TID. 2.) Continue close supervision and feeding assistance during meals. 3.) If pt's PO intake remains inadequate (<75%), continue PN support that meets at least 75% of est nutrient needs. 4.) Refer pt to RD for further nutrition education and weight monitoring upon discharge. 5.) Continue current plan of care.
[2018-12-29] MEDS ORDERED: TPN PER PHARMACY IV NR ×9 (20:00)
[2018-12-29] MEDS: POTASSIUM CHLORIDE 20 MEQ in D5W 5% 1,000 ML IV SCH (20:00)
[2018-12-29] MEDS: cefTRIAXone 1GM/50ML D5W 50 ML IV SCH (20:28)
[2018-12-29 22:24] VITALS: BP 116/72
[2018-12-30] MEDS: InsuLIN REG 1unit/0.01ml Soln (100units/ml) SC SCH ×4 (06:00→23:41)
[2018-12-30] MEDS: ACCU-CHEK COMFORT CURVE STRIP VI SCH ×4 (06:02→23:41)
[2018-12-30] MEDS: metroNIDAZOLE 500MG/100ML 100 ML IV SCH ×3 (06:03→22:03)
[2018-12-30 06:11] VITALS: BP 105/70
--- NOTE | 2018-12-30 08:00 | NUR ---
PT A AND O X 1. PT RESTING IN BED, NO DISTRESS NOTED, SITTER AT BEDSIDE. CALL LIGHT IN REACH, BED IN LOWEST LOCKED POSITION, SIDE RAILS UP X2. WILL CONTINUE TO MONITOR.
--- NOTE | 2018-12-30 08:44 | NUR ---
notes from 12/29/18: Pt was not able to ambluate and do ther ex with PT secondary increased HR and low BP. Nursing present and aware of situation. Addendum: 12/30/18 at 0845 by Morena Harrington PT Amended: Links added.
[2018-12-30 09:00] VITALS: BP 105/68
--- NOTE | 2018-12-30 09:09 | NUR ---
PT REPORTS SHE IS IN PAIN, "EVERYWHERE." WHEN ASKED HER PAIN LEVEL SHE REPORTS, "BABY DADDY." MORTGAGE PROCESSING MANAGER REPORTS PT IS RESTLESS. BP 97/59 AND MORPHINE PRN AVAILABLE. CALLED AND LEFT MESSAGE FOR DR BUSH, DR WILLINGHAM CALLED BACK, NEW ORDER FOR TORADOL.
[2018-12-30] MEDS ORDERED: KETOROLAC TROMETH 15 mg/ml 1ML VL IV ONE (09:15)
[2018-12-30 09:34] LABS: Albumin 2.8 g/dL (3.4-5.0); BUN/Creatinine Ratio 23.2; Magnesium 2.1 mg/dL (1.6-2.6); Potassium 3.5 mmol/L (3.5-5.1)
[2018-12-30] MEDS: ENSURE CLEAR Apple 8oz Carton PO SCH ×3 (09:35→17:42)
[2018-12-30] MEDS: FAMOTIDINE (10MG/ML) 2ML VL IV SCH ×2 (09:35→19:53)
[2018-12-30 09:37] LABS: Bilirubin, Total 0.2 mg/dL (0.2-1.0); Phosphorus 2.7 mg/dL (2.5-4.90); Total Protein 6.2 g/dL (6.4-8.2)
[2018-12-30] MEDS: SODIUM CHLOR 0.9% PF (SALINE LOCK) 10ML VIAL/SYR IV SCH ×2 (09:37→22:03)
[2018-12-30] MEDS: LEVETIRACETAM INJ 500 MG in D5W 5% 100 ML IV SCH ×2 (09:37→22:03)
--- NOTE | 2018-12-30 10:49 | NUR ---
CALLED [facility] [employer] TO FOLLOW UP ON SNIFF PLACEMENT, LEFT MESSAGE.
[2018-12-30 13:00] VITALS: BP 100/60
--- NOTE | 2018-12-30 15:33 | NUR ---
I called [facility] Packaging Sales Representative Ирина [phone] and left message asking for authorization for SNF as well as transportation-I did leave her the contact information for [facility]. Addendum: 01/02/19 at 0928 by Mary Quiroz RN I received a call from [facility] Packaging Sales Representative Tigre [phone], I provided her with the contact information for [facility], she is to call them and provide them with authorization.
[2018-12-30] MEDS: HYDROcodone-ACET 10/325MG TAB PO PRN (16:47)
[2018-12-30 17:00] VITALS: BP 107/72
[2018-12-30] MEDS: LORazepam 2MG/ML-1ML VIAL IV PRN (17:07)
[2018-12-30] MEDS: ACETAMINOPHEN 650 MG RECT SUPP PR PRN (17:08)
--- NOTE | 2018-12-30 19:20 | NUR ---
Opening shift note: Assumed care from day nurse. Patient is alert and orient x 4. no s/s of sob or distress. Even and unlabored breathing. Picc to upper right are is patent. Iv to right forearm is leaking and will be dc'd. Patient was instructed on poc and to call for assistance as need. Patient verbalized understanding. Patient has sitter bedside for safety. Bed in lowest position and call light is within reach.
--- NOTE | 2018-12-30 19:45 | NUR ---
IV removal IV to right forearm 20 g DC'd with clean sterile technique, catheter fully intact. Pressure dressing applied to site. Patient tolerated well. NOTE: Iv was edematous and leaking.
[2018-12-30] MEDS: cefTRIAXone 1GM/50ML D5W 50 ML IV SCH (19:59)
[2018-12-30] MEDS ORDERED: TPN PER PHARMACY IV NR ×9 (20:00)
--- NOTE | 2018-12-30 20:20 | NUR ---
IV insertion IV access obtained, via clean sterile technique by inserting 22 gauge catheter on right forearm. IV secured properly. No trauma to site. Patient tolerated well.
[2018-12-30] MEDS: POTASSIUM CHLORIDE 20 MEQ in D5W 5% 1,000 ML IV SCH (20:35)
[2018-12-30 22:00] VITALS: BP 106/70
[2018-12-31] MEDS: HYDROcodone-ACET 10/325MG TAB PO PRN ×2 (03:18→19:39)
[2018-12-31 05:00] VITALS: BP 99/68
[2018-12-31] MEDS: ACCU-CHEK COMFORT CURVE STRIP VI SCH ×2 (05:25→12:08)
[2018-12-31] MEDS: InsuLIN REG 1unit/0.01ml Soln (100units/ml) SC SCH ×2 (05:25→12:00)
[2018-12-31] MEDS: metroNIDAZOLE 500MG/100ML 100 ML IV SCH (05:44)
[2018-12-31 06:23] LABS: Potassium 4.3 mmol/L (3.5-5.1)
[2018-12-31 06:38] LABS: Albumin 2.9 g/dL (3.4-5.0); BUN/Creatinine Ratio 31.7; Bilirubin, Total 0.2 mg/dL (0.2-1.0); Calcium 8.1 mg/dL (8.5-10.1); Magnesium 2.3 mg/dL (1.6-2.6); Phosphorus 4.4 mg/dL (2.5-4.90); Total Protein 6.3 g/dL (6.4-8.2)
--- NOTE | 2018-12-31 07:45 | NUR ---
Opening Note Patient is awake and alert, sitting up eating breakfast independently, she is A & O x 3, she does not know what day it is or what time. She states "I don't know where I live", nor does she know who she lives with. No s/s of distress. Bed is in low, locked position, call light within reach. Sitter at bedside. Patient has bedside commode. Will continue to monitor Q1h and PRN.
[2018-12-31] MEDS: ENSURE CLEAR Apple 8oz Carton PO SCH ×2 (08:00→12:00)
[2018-12-31 08:30] VITALS: BP 99/62
[2018-12-31] MEDS: LEVETIRACETAM INJ 500 MG in D5W 5% 100 ML IV SCH ×2 (09:56→22:01)
[2018-12-31] MEDS: FAMOTIDINE (10MG/ML) 2ML VL IV SCH ×2 (09:57→21:00)
[2018-12-31] MEDS: SODIUM CHLOR 0.9% PF (SALINE LOCK) 10ML VIAL/SYR IV SCH ×2 (10:13→22:26)
--- NOTE | 2018-12-31 10:16 | NUR ---
Patient HOME med [facility], pharmacy is sending the last dose that we have in the hospital this morning.
[2018-12-31] MEDS: COPAXONE 40 MG SC SCH (10:28)
--- NOTE | 2018-12-31 12:21 | NUR ---
Paged Dr. Wilson regarding TPN Pharmacy is requesting consent to continue TPN, patient is tolerating PO diet 75% for dinner and breakfast. Will await phone call.
[2018-12-31 13:06] VITALS: BP 103/66
--- NOTE | 2018-12-31 15:05 | NUR ---
Family at bedside Daughter Yenny at bedside, stated "my dad will bring her copaxone on Wednesday." Family updated on patient status at this time.
--- NOTE | 2018-12-31 15:39 | NUR ---
Nutrition Follow-up Notes Wt.: 60.4 kg as of yesterday. Pt's asleep, with sitter at bedside, no signs of distress noted during rounds this morning. Pt's just off from PN support, currently on Mechanical Soft diet with Ensure Clear 1 carton TID, has fair PO intake aeb 65% ave. consumed meals (x6) in last 2.5 days. Est. Needs BW [id number] kcal (25-30 kcal/kgBW), 67-78 gms pro (1.2-1.4 gms/kgBW d/t severe hypoalbuminemia). Will continue to monitor pertinent labs and reassess nutrient need prn Labs: Gluc 119 H, Cr 0.41 L, Ca 8.1 L, Tpro 6.3 L, Alb 2.9 L. Skin: Silver scale 17, mod risk, skin intact per cashiers bussers food runners. GI: Pt had 2 ml stool output this morning per cashiers bussers food runners. PES: Altered nutrition related lab values r/t acute/chronic medical condition aeb hyperglycemia, hypernatremia,hyperchloremia, elev. BUN level, hypocalcemia Will continue to monitor PO intake, skin status, pertinent labs and weight trend. F/u in 2 to 3 days. Rec.: 1.) Consider change Ensure Clear to Ensure Enlive 1 carton TID. 2.) Continue close supervision and feeding assistance during meals. 3.) If Albumin level continues trending down, consider Prostat 1 pkt BID. 4.) Refer pt to RD for further nutrition education and weight monitoring upon discharge. 5.) Continue current plan of care.
[2018-12-31 17:49] VITALS: BP 99/64
--- NOTE | 2018-12-31 19:45 | NUR ---
Opening Shift Note Assumed care of patient, awake and alert. Currently on room air with No S/S of distress/SOB. Reports ABD pain at this time. Pain management options discussed with patient. PICC line in right upper arm is patent and currently running D5 with 20meq potassium. 20 gauge in right forearm is patent and NS locked. Instructed on POC and to call for assist PRN, will continue to monitor for changes Q1hr and PRN.
[2018-12-31] MEDS ORDERED: TPN PER PHARMACY IV NR ×8 (20:00)
[2018-12-31] MEDS: POTASSIUM CHLORIDE 20 MEQ in D5W 5% 1,000 ML IV SCH (21:00)
[2018-12-31 22:00] VITALS: BP 86/55
[2019-01-01] MEDS: HYDROcodone-ACET 10/325MG TAB PO PRN (05:44)
[2019-01-01 06:11] VITALS: BP 102/69
[2019-01-01] MEDS: FAMOTIDINE (10MG/ML) 2ML VL IV SCH ×2 (06:46→20:22)
--- NOTE | 2019-01-01 07:45 | NUR ---
Opening Note Assumed care of patient, she is A & O x 3, she has moments of confusion throughout conversation. Patient complains of discomfort in her jarad-area, her inner thighs have some moisture associated skin breakdown. Barrier cream has been applied and a sheet placed between the legs. POC discussed with patient. Bed is in low, locked position, sitter is at bedside. Will continue to monitor Q1h and PRN.
[2019-01-01] MEDS: ENSURE CLEAR Apple 8oz Carton PO SCH ×3 (08:00→18:00)
[2019-01-01 09:00] VITALS: BP 94/66
--- NOTE | 2019-01-01 09:00 | NUR ---
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
[2019-01-01] MEDS: LEVETIRACETAM INJ 500 MG in D5W 5% 100 ML IV SCH ×2 (09:52→21:50)
[2019-01-01 13:03] VITALS: BP 85/52
--- NOTE | 2019-01-01 16:00 | NUR ---
Patient requesting Morphine Patient blood pressure is 91/60, heart rate 90. Educated patient that her blood pressure could drop if she is given morphine. Will continue to monitor pain and blood pressure and medicate accordingly.
[2019-01-01] MEDS: SODIUM CHLOR 0.9% PF (SALINE LOCK) 10ML VIAL/SYR IV SCH ×2 (16:30→21:50)
[2019-01-01 17:08] VITALS: BP 98/66
--- NOTE | 2019-01-01 19:30 | NUR ---
OPENING SHIFT NOTE Assumed care of patient. A&Ox4, with moments of confusing/inappropriate wording. Sitter is present in room. Patient is currently on room air with no s/s of SOB or distress. Currently ambulates with assist to bedside commode. Increased heart rate is noted with ambulation. Patient instructed to rest frequently when needed to avoid over exertion. Reports 10/10 pain "all over". Discussed pain management options with patient. Bed is in low locked position with side rails up x2. Patient instructed to call for assistance when needed. Will continue to monitor PRN.
[2019-01-01] MEDS: MORPHINE SULFATE 4 MG/ML SYR/VIAL IV PRN (20:22)
[2019-01-01] MEDS: POTASSIUM CHLORIDE 20 MEQ in D5W 5% 1,000 ML IV SCH (20:23)
[2019-01-01 21:48] VITALS: BP 84/55
[2019-01-02 05:00] VITALS: BP 111/71
[2019-01-02] MEDS: FAMOTIDINE (10MG/ML) 2ML VL IV SCH (06:55)
--- NOTE | 2019-01-02 06:59 | NUR ---
PICC Line Dressing Change PICC line dressing change done with a sterile technique. External length is 3cm. No s/s of infection or irritation noted. Cleansed with ChloraPrep scrub and alcohol swabs provided with kit. Stat lock, and bio-patch changed. Occlusive dressing applied. Ports changed. Patient tolerated procedure well.
[2019-01-02 07:45] VITALS: BP 110/63
[2019-01-02] MEDS: ENSURE CLEAR Apple 8oz Carton PO SCH ×2 (07:48→11:49)
--- NOTE | 2019-01-02 10:00 | NUR ---
Barby Called pharmacy twice in the past hour regarding Keppra. There is none in the med room. They said they would send some up but it still has not been received. Will continue to contact them and give Adeolara when received.
[2019-01-02] MEDS: LEVETIRACETAM INJ 500 MG in D5W 5% 100 ML IV SCH (11:03)
[2019-01-02] MEDS: SODIUM CHLOR 0.9% PF (SALINE LOCK) 10ML VIAL/SYR IV SCH (11:04)
[2019-01-02 11:36] VITALS: BP 105/70
--- NOTE | 2019-01-02 13:09 | NUR ---
DISCHARGE SPOUSE AT BEDSIDE. GAVE DISCHARGE INFORMATION TO SPOUSE AND PATIENT. EXPLAINED EVERYTHING AND ANSWERED QUESTIONS. REMOVED IV AND PICC LINE, REMOVED ID BANDS, REMOVED TELEMETRY AND SENT TO [facility].
== END 2019-01-02 14:00 | disposition home or self-care (01) | DRG 871 ==
LOC: EDBD 14:33 → ER 14:33 → CENTRAL 19:23 → TELE-CENTR 12-24 01:03 → TELE-WESTW 12-25 05:42
PROVIDERS: ADMIT Internal Medicine; ATTEND Internal Medicine Cardiovascular Disease
PROC: 02HV33Z Insertion of Infusion Device into Superior Vena Cava, Percutaneous Approach (ICD-10-PCS; principal; 2018-12-23)
DX: A41.9 Sepsis, unspecified organism (principal); G93.41 Metabolic encephalopathy; E46 Unspecified protein-calorie malnutrition; K56.609 Unspecified intestinal obstruction, unspecified as to partial versus complete obstruction; E87.1 Hypo-osmolality and hyponatremia; E87.0 Hyperosmolality and hypernatremia; G62.9 Polyneuropathy, unspecified; G35 Multiple sclerosis; G89.4 Chronic pain syndrome; F32.9 Major depressive disorder, single episode, unspecified; F41.9 Anxiety disorder, unspecified; F17.210 Nicotine dependence, cigarettes, uncomplicated; E78.5 Hyperlipidemia, unspecified; M19.90 Unspecified osteoarthritis, unspecified site; R73.9 Hyperglycemia, unspecified; G40.909 Epilepsy, unspecified, not intractable, without status epilepticus; E86.9 Volume depletion, unspecified; Z68.25 Body mass index [BMI] 25.0-25.9, adult; Z88.8 Allergy status to other drugs, medicaments and biological substances; Z90.49 Acquired absence of other specified parts of digestive tract; Z83.3 Family history of diabetes mellitus; Z82.5 Family history of asthma and other chronic lower respiratory diseases; Z82.49 Family history of ischemic heart disease and other diseases of the circulatory system; Z79.899 Other long term (current) drug therapy
CPT/HCPCS: 36415; 36569; 36600; 70450; 71045; 74018; 74176; 74250; 80048; 80053; 81001; 82040; 82150; 82805; 82962; 83036; 83690; 83735; 84100; 84295; 84478; 84484; 85007; 85025; 85027; 85610; 85730; 87040; 87086; 87804; 93005; 94761; 96361; 96374; 96375; 97116; 97530; G0378; J0696; J1815; J3480; J3490; J7060

== ENCOUNTER 2019-06-25 23:26 | Emergency (ER) | payer BC ==
[~2019-06-25] VITALS: Ht 162.6 cm; Wt 72.6 kg
[~2019-06-25 23:26] MED LIST changes: +LEVE1TAB46 PO; -LEVE500T81 PO; +MORP1TAB14 PO; -MORP60TA25 PO; -SERT-135 PO; +SERT100T PO
[2019-06-26] MEDS ORDERED: LORazepam 2MG/ML-1ML VIAL ONE (00:29)
[2019-06-26] MEDS ORDERED: LORazepam 2MG/ML-1ML VIAL IV ONE (00:45)
[2019-06-26 02:43] LABS: Basophils # (auto) 0.1 uL; Basophils % (auto) 3.2 % (0.0-2.0); Eosinophils # (auto) 0.1 uL; Eosinophils % (auto) 2.2 % (0.0-7.0); Hematocrit 37.9 % (36.0-46.0); Lymphocytes # (auto) 1.9 uL; Lymphocytes % (auto) 44.4 % (10.0-50.0); Mean Corpuscular Hemoglobin 33.5 pg (28.0-32.0); Mean Corpuscular Hgb Conc. 34.4 g/dL (32.0-36.0); Mean Corpuscular Volume 97.3 fL (80.0-100.0); Monocytes # (auto) 0.4 uL; Monocytes % (auto) 9.6 % (0.0-12.0); Neutrophils # (auto) 1.7 uL; Neutrophils % (auto) 40.6 % (37.0-80.0); Nucleated Red Blood Cells % 0.3 %; Platelet Count (auto) 217 10^3/uL (140-450); Red Cell Distribution Width 12.5 % (11.8-14.3); White Blood Cell 4.3 10^3/uL (4.4-10.8)
[2019-06-26 02:51] LABS: Albumin 3.2 g/dL (3.4-5.0); BUN/Creatinine Ratio 11.4; Calcium 8.8 mg/dL (8.5-10.1); Potassium 3.7 mmol/L (3.5-5.1)
[2019-06-26 02:58] LABS: Bilirubin, Total 0.3 mg/dL (0.2-1.0); Total Protein 6.3 g/dL (6.4-8.2)
[2019-06-26 05:25] LABS: Urine Bacteria None Seen /hpf (None Seen); Urine WBC None Seen /hpf (0 - 5)
[2019-06-26 05:42] LABS: Urine Blood Normal /uL (Negative); Urine Specific Gravity 1.015 (1.001-1.035)
[2019-06-26 08:30] VITALS: BP 107/57
== END 2019-06-26 09:42 | disposition home or self-care (01) ==
LOC: EDBD 23:26 → ER 23:26
DX: E86.0 Dehydration (principal); G35 Multiple sclerosis; G62.9 Polyneuropathy, unspecified; G40.109 Localization-related (focal) (partial) symptomatic epilepsy and epileptic syndromes with simple partial seizures, not intractable, without status epilepticus; N81.4 Uterovaginal prolapse, unspecified; F17.210 Nicotine dependence, cigarettes, uncomplicated; Z90.49 Acquired absence of other specified parts of digestive tract; Z90.89 Acquired absence of other organs
CPT/HCPCS: 36415; 74176; 80053; 81001; 83690; 85025; 93005; 96374; 99284; J2060

== ENCOUNTER 2019-07-13 15:13 | Inpatient (IN) | payer BC ==
[~2019-07-13] VITALS: Ht 160 cm; Wt 52.2 kg
[2019-07-13] MEDS ORDERED: SODIUM CHLORIDE 0.9% 1,000 ML IV ONE (15:17)
[2019-07-13] MEDS ORDERED: LORazepam 2MG/ML-1ML VIAL IV ONE (17:00)
[2019-07-13 17:20] LABS: Basophils # (auto) 0 uL; Basophils % (auto) 0.4 % (0.0-2.0); Eosinophils # (auto) 0.1 uL; Eosinophils % (auto) 2.3 % (0.0-7.0); Hematocrit 37.8 % (36.0-46.0); Hemoglobin 12.9 g/dL (12.2-16.2); Lymphocytes # (auto) 1.8 uL; Lymphocytes % (auto) 34.4 % (10.0-50.0); Mean Corpuscular Hemoglobin 33.2 pg (28.0-32.0); Mean Corpuscular Hgb Conc. 34.2 g/dL (32.0-36.0); Mean Corpuscular Volume 97.1 fL (80.0-100.0); Monocytes # (auto) 0.4 uL; Monocytes % (auto) 7.4 % (0.0-12.0); Neutrophils # (auto) 2.9 uL; Neutrophils % (auto) 55.5 % (37.0-80.0); Platelet Count (auto) 194 10^3/uL (140-450); Red Cell Distribution Width 12.2 % (11.8-14.3); White Blood Cell 5.2 10^3/uL (4.4-10.8)
[2019-07-13 17:39] LABS: Albumin 3.4 g/dL (3.4-5.0); Anion Gap 5 (5-15); Blood Urea Nitrogen 5 mg/dL (7-18); Carbon Dioxide 29 mmol/L (21-32); Chloride 102 mmol/L (98-107); Glucose 88 mg/dL (74-106); Potassium 3.9 mmol/L (3.5-5.1); Sodium 136 mmol/L (136-145)
[2019-07-13 17:44] LABS: Alanine Aminotransferase 18 U/L (13-56); Alkaline Phosphatase 78 U/L (45-117); Aspartate Aminotransferase 14 U/L (15-37); BUN/Creatinine Ratio 11.1; Bilirubin, Total 0.4 mg/dL (0.2-1.0); GFR African American 182 mL/min; GFR Non-African American 151 mL/min; Total Protein 6.5 g/dL (6.4-8.2)
[2019-07-13 20:16] LABS: Urine Bacteria NONE SEEN /hpf (None Seen); Urine Blood Negative /uL (Negative); Urine Specific Gravity 1.006 (1.001-1.035); Urine WBC <1 /hpf (0 - 5)
[2019-07-13] MEDS ORDERED: LEVETIRACETAM INJ 1,000 MG in D5W 5% 100 ML IV ONE (21:00)
[2019-07-13] MEDS ORDERED: MORPHINE SULFATE 4 MG/ML SYR/VIAL IV ONE (21:15)
[2019-07-13] MEDS ORDERED: ONDANSETRON HCL 4 MG/2 ML VIAL IV ONE (21:15)
[2019-07-13] MEDS ORDERED: LEVETIRACETAM 500 MG/5ML INJ IV ONE (21:29)
[2019-07-13] MEDS ORDERED: MORPHINE SULF INJ 2 MG/ML SYRINGE 1ML IV PRN (23:15)
[2019-07-13] MEDS ORDERED: DIAZEPAM 5 MG TAB PO PRN (23:15)
[2019-07-13] MEDS ORDERED: clonazePAM 0.5 MG TAB PO PRN (23:15)
[2019-07-13] MEDS ORDERED: NITROGLYCERIN 0.4 MG SL TAB SL PRN (23:15)
[2019-07-13] MEDS ORDERED: carBAMazepine 200 MG TAB PO ONE (23:15)
[2019-07-14] MEDS: MORPHINE SULF 30 mg ER tab PO PRN ×3 (01:27→18:28)
[2019-07-14 01:31] VITALS: BP 116/62
[2019-07-14] MEDS ORDERED: INFLUENZA QUAD 2019-2020 0.5ml SYRG IM ONE (02:00)
[2019-07-14] MEDS: MAGNESIUM CITRATE SOLUTION 300 ML BTL PO ONE ×2 (08:00→15:55)
[2019-07-14 09:00] VITALS: BP 97/61
[2019-07-14] MEDS ORDERED: carBAMazepine 200 MG TAB PO SCH (10:00)
[2019-07-14] MEDS: LEVETIRACETAM 500 MG TAB PO SCH ×2 (11:01→22:16)
[2019-07-14] MEDS: PREGABALIN CAPSULE 75 MG CAP PO SCH ×2 (11:02→22:16)
[2019-07-14] MEDS: OXYBUTYNIN CHL 5 MG TAB PO SCH ×2 (11:04→22:16)
[2019-07-14] MEDS: SERTRALINE HCL 50 MG TAB PO SCH (11:07)
[2019-07-14 13:00] VITALS: BP 107/59
[2019-07-14 17:14] VITALS: BP 101/63
[2019-07-14] MEDS: carBAMazepine 200 MG TAB PO SCH ×2 (20:00→22:16)
[2019-07-14 21:54] VITALS: BP 108/72
[2019-07-14] MEDS: [UNRECOGNIZED DRUG - OTHER] SC SCH (22:17)
[2019-07-14] MEDS: GLATIRAMER SC SCH (22:17)
[2019-07-14] MEDS: LORazepam 2MG/ML-1ML VIAL IV PRN (22:25)
[2019-07-14] MEDS ORDERED: MAGNESIUM CITRATE SOLUTION 300 ML BTL PO ONE (23:15)
[2019-07-14] MEDS ORDERED: FLEET ENEMA(ADULT) 135 ML PR ONE (23:15)
[2019-07-15 04:48] VITALS: BP 90/66
[2019-07-15] MEDS: carBAMazepine 200 MG TAB PO SCH ×3 (06:46→21:48)
[2019-07-15] MEDS: MORPHINE SULF 30 mg ER tab PO PRN ×3 (08:13→21:49)
[2019-07-15 09:00] VITALS: BP 98/55
[2019-07-15] MEDS: OXYBUTYNIN CHL 5 MG TAB PO SCH ×2 (09:48→21:45)
[2019-07-15] MEDS: SERTRALINE HCL 50 MG TAB PO SCH (09:48)
[2019-07-15] MEDS: PREGABALIN CAPSULE 75 MG CAP PO SCH ×2 (09:49→21:46)
[2019-07-15] MEDS: LEVETIRACETAM 500 MG TAB PO SCH ×2 (09:49→21:46)
[2019-07-15] MEDS: MORPHINE SULF INJ 2 MG/ML SYRINGE 1ML IV PRN ×2 (11:50→19:59)
[2019-07-15] MEDS: LORazepam 2MG/ML-1ML VIAL IV PRN (12:36)
[2019-07-15 13:00] VITALS: BP 101/54
[2019-07-15 17:00] VITALS: BP 114/68
[2019-07-15] MEDS: Ensure Enlive Strawberry 8oz Bottle PO SCH (18:34)
[2019-07-15 23:13] VITALS: BP 111/50
[2019-07-16] MEDS: MORPHINE SULF 30 mg ER tab PO PRN ×3 (03:49→16:01)
[2019-07-16 05:57] VITALS: BP 95/62
[2019-07-16] MEDS: carBAMazepine 200 MG TAB PO SCH ×2 (06:38→22:56)
[2019-07-16] MEDS: Ensure Enlive Strawberry 8oz Bottle PO SCH (08:00)
[2019-07-16 09:00] VITALS: BP 96/52
[2019-07-16] MEDS: LEVETIRACETAM 500 MG TAB PO SCH ×2 (09:34→22:55)
[2019-07-16] MEDS: PREGABALIN CAPSULE 75 MG CAP PO SCH ×2 (09:34→22:55)
[2019-07-16] MEDS: OXYBUTYNIN CHL 5 MG TAB PO SCH ×2 (09:34→22:55)
[2019-07-16] MEDS: SERTRALINE HCL 50 MG TAB PO SCH (09:35)
[2019-07-16] MEDS: LORazepam 2MG/ML-1ML VIAL IV PRN (10:05)
[2019-07-16] MEDS ORDERED: NICOTINE 21MG/24 HR TOPICAL PATCH TD ONE (10:15)
[2019-07-16 13:00] VITALS: BP 113/69
[2019-07-16] MEDS: ENSURE CLEAR Mixed Berry 8oz Carton PO SCH ×2 (14:10→18:30)
[2019-07-16 17:00] VITALS: BP 103/56
[2019-07-16] MEDS: MORPHINE SULF INJ 2 MG/ML SYRINGE 1ML IV PRN (21:31)
[2019-07-16 22:02] VITALS: BP 120/62
[2019-07-17 05:05] VITALS: BP 90/47
[2019-07-17 08:00] VITALS: BP 103/64
[2019-07-17 09:00] VITALS: BP 103/64
[2019-07-17] MEDS ORDERED: NICOTINE 21MG/24 HR TOPICAL PATCH TD SCH (10:00)
[2019-07-17] MEDS: PREGABALIN CAPSULE 75 MG CAP PO SCH ×2 (10:45→22:42)
[2019-07-17] MEDS: OXYBUTYNIN CHL 5 MG TAB PO SCH ×2 (10:46→22:41)
[2019-07-17] MEDS: carBAMazepine 200 MG TAB PO SCH ×2 (10:46→22:42)
[2019-07-17] MEDS: LEVETIRACETAM 500 MG TAB PO SCH ×2 (10:46→22:41)
[2019-07-17] MEDS: SERTRALINE HCL 50 MG TAB PO SCH (10:48)
[2019-07-17] MEDS: ENSURE CLEAR Mixed Berry 8oz Carton PO SCH ×3 (10:54→18:06)
[2019-07-17] MEDS: MORPHINE SULFATE 10 MG/5 ML ORAL SOLN PO PRN ×3 (11:17→23:13)
[2019-07-17 13:00] VITALS: BP 101/62
[2019-07-17 17:00] VITALS: BP 95/57
[2019-07-17 22:00] VITALS: BP 102/61
[2019-07-17] MEDS: [UNRECOGNIZED DRUG - OTHER] SC SCH (22:40)
[2019-07-17] MEDS: GLATIRAMER SC SCH (22:40)
[2019-07-17] MEDS: LACTULOSE 20Gm/30ML SOLN PO SCH (22:41)
[2019-07-18] MEDS: MORPHINE SULFATE 10 MG/5 ML ORAL SOLN PO PRN (05:30)
[2019-07-18 05:51] VITALS: BP 99/51
[2019-07-18] MEDS: SUCRALFATE 1 GM/10 ML ORAL SUSP GT SCH ×3 (06:35→17:01)
[2019-07-18] MEDS: ENSURE CLEAR Mixed Berry 8oz Carton PO SCH ×3 (08:14→18:22)
[2019-07-18 09:00] VITALS: BP 121/51
[2019-07-18] MEDS: carBAMazepine 200 MG TAB PO SCH ×2 (10:25→22:10)
[2019-07-18] MEDS: LEVETIRACETAM 500 MG TAB PO SCH ×2 (10:25→22:09)
[2019-07-18] MEDS: SERTRALINE HCL 50 MG TAB PO SCH (10:25)
[2019-07-18] MEDS: LACTULOSE 20Gm/30ML SOLN PO SCH ×2 (10:25→22:09)
[2019-07-18] MEDS: PREGABALIN CAPSULE 75 MG CAP PO SCH ×2 (10:26→22:09)
[2019-07-18] MEDS: OXYBUTYNIN CHL 5 MG TAB PO SCH ×2 (10:26→22:09)
[2019-07-18] MEDS: NICOTINE 14 MG/24HR TOPICAL PATCH TD SCH (10:27)
[2019-07-18] MEDS: DONNATAL 5ml ORAL Elix (BELLADONNA ALK-PHENOBARB) PO SCH ×2 (10:37→18:22)
[2019-07-18] MEDS ORDERED: MORPHINE SULFATE 10 MG/5 ML ORAL SOLN PO PRN (10:45)
[2019-07-18 13:00] VITALS: BP 86/49
[2019-07-18] MEDS ORDERED: MAGNESIUM CITRATE SOLUTION 300 ML BTL PO ONE (14:30)
[2019-07-18] MEDS: MORPHINE SULF 30 mg ER tab PO SCH ×2 (14:46→22:10)
[2019-07-18 17:00] VITALS: BP 87/58
[2019-07-18 20:00] VITALS: BP 96/71
[2019-07-18 22:00] VITALS: BP 94/53
[2019-07-18] MEDS: AMITIZA 24 MCG PO SCH (22:08)
[2019-07-19] MEDS: DONNATAL 5ml ORAL Elix (BELLADONNA ALK-PHENOBARB) PO SCH ×3 (02:42→18:04)
[2019-07-19] MEDS: MORPHINE SULF 30 mg ER tab PO SCH ×2 (06:08→14:00)
[2019-07-19] MEDS: SUCRALFATE 1 GM/10 ML ORAL SUSP GT SCH ×3 (06:09→18:04)
[2019-07-19 06:10] VITALS: BP 88/53
[2019-07-19 08:00] VITALS: BP 92/64
[2019-07-19] MEDS: ENSURE CLEAR Mixed Berry 8oz Carton PO SCH ×3 (09:14→18:06)
[2019-07-19] MEDS: PREGABALIN CAPSULE 75 MG CAP PO SCH ×2 (10:27→22:13)
[2019-07-19] MEDS: SERTRALINE HCL 50 MG TAB PO SCH (10:28)
[2019-07-19] MEDS: OXYBUTYNIN CHL 5 MG TAB PO SCH ×2 (10:28→22:12)
[2019-07-19] MEDS: LEVETIRACETAM 500 MG TAB PO SCH ×2 (10:28→22:13)
[2019-07-19] MEDS: LACTULOSE 20Gm/30ML SOLN PO SCH (10:29)
[2019-07-19] MEDS: GLATIRAMER SC SCH (10:29)
[2019-07-19] MEDS: [UNRECOGNIZED DRUG - OTHER] SC SCH (10:29)
[2019-07-19] MEDS: NICOTINE 14 MG/24HR TOPICAL PATCH TD SCH (10:30)
[2019-07-19] MEDS: carBAMazepine 200 MG TAB PO SCH ×2 (12:45→22:13)
[2019-07-19 13:00] VITALS: BP 98/65
[2019-07-19 17:00] VITALS: BP 112/62
[2019-07-19 17:55] LABS: Basophils # (auto) 0.1 uL; Basophils % (auto) 2.6 % (0.0-2.0); Eosinophils # (auto) 0.2 uL; Hemoglobin 12.9 g/dL (12.2-16.2); Lymphocytes # (auto) 1.6 uL; Lymphocytes % (auto) 32.6 % (10.0-50.0); Mean Corpuscular Volume 97.3 fL (80.0-100.0); Monocytes # (auto) 0.6 uL; Neutrophils # (auto) 2.4 uL; Neutrophils % (auto) 48.8 % (37.0-80.0); Nucleated Red Blood Cells % 0.1 %; Platelet Count (auto) 172 10^3/uL (140-450); White Blood Cell 4.9 10^3/uL (4.4-10.8)
[2019-07-19 18:14] LABS: Albumin 3.3 g/dL (3.4-5.0); Calcium 7.9 mg/dL (8.5-10.1); Potassium 3.7 mmol/L (3.5-5.1)
[2019-07-19 18:17] LABS: BUN/Creatinine Ratio 21.7; Bilirubin, Total 0.2 mg/dL (0.2-1.0); Total Protein 6.2 g/dL (6.4-8.2)
[2019-07-19 20:00] VITALS: BP 103/65
[2019-07-19 22:00] VITALS: BP 90/49
[2019-07-19] MEDS: AMITIZA 24 MCG PO SCH (22:12)
[2019-07-20] MEDS: DONNATAL 5ml ORAL Elix (BELLADONNA ALK-PHENOBARB) PO SCH ×3 (02:13→18:00)
[2019-07-20 05:00] VITALS: BP 97/56
[2019-07-20] MEDS: SUCRALFATE 1 GM/10 ML ORAL SUSP GT SCH ×3 (06:06→17:11)
[2019-07-20 08:00] VITALS: BP 95/60
[2019-07-20] MEDS: ENSURE CLEAR Mixed Berry 8oz Carton PO SCH ×3 (08:00→18:05)
[2019-07-20] MEDS: NICOTINE 14 MG/24HR TOPICAL PATCH TD SCH (10:14)
[2019-07-20] MEDS: PREGABALIN CAPSULE 75 MG CAP PO SCH ×2 (10:15→21:30)
[2019-07-20] MEDS: SERTRALINE HCL 50 MG TAB PO SCH (10:15)
[2019-07-20] MEDS: OXYBUTYNIN CHL 5 MG TAB PO SCH ×2 (10:15→21:31)
[2019-07-20] MEDS: carBAMazepine 200 MG TAB PO SCH ×2 (10:15→21:30)
[2019-07-20] MEDS: LEVETIRACETAM 500 MG TAB PO SCH ×2 (10:15→21:30)
[2019-07-20 12:00] VITALS: BP 95/60
[2019-07-20] MEDS: MORPHINE SULFATE 10 MG/5 ML ORAL SOLN PO PRN ×2 (13:35→21:29)
[2019-07-20 17:00] VITALS: BP 97/59
[2019-07-20 20:00] VITALS: BP 98/59
[2019-07-20] MEDS: AMITIZA 24 MCG PO SCH (21:28)
[2019-07-20 22:00] VITALS: BP 98/59
[2019-07-20] MEDS ORDERED: LACTULOSE 20Gm/30ML SOLN PO PRN (22:00)
[2019-07-21] VITALS (7 sets, daily range): BP systolic 86–104; BP diastolic 48–71
[2019-07-21] MEDS: DONNATAL 5ml ORAL Elix (BELLADONNA ALK-PHENOBARB) PO SCH ×3 (02:23→17:52)
[2019-07-21] MEDS: MORPHINE SULFATE 10 MG/5 ML ORAL SOLN PO PRN ×3 (06:23→21:27)
[2019-07-21] MEDS: SUCRALFATE 1 GM/10 ML ORAL SUSP GT SCH ×3 (06:23→17:52)
[2019-07-21] MEDS: LEVETIRACETAM 500 MG TAB PO SCH ×2 (09:51→21:28)
[2019-07-21] MEDS: SERTRALINE HCL 50 MG TAB PO SCH (09:52)
[2019-07-21] MEDS: carBAMazepine 200 MG TAB PO SCH ×2 (09:53→21:29)
[2019-07-21] MEDS: PREGABALIN CAPSULE 75 MG CAP PO SCH ×2 (09:53→21:29)
[2019-07-21] MEDS: OXYBUTYNIN CHL 5 MG TAB PO SCH ×2 (09:53→21:28)
[2019-07-21] MEDS: NICOTINE 14 MG/24HR TOPICAL PATCH TD SCH (09:54)
[2019-07-21] MEDS: [UNRECOGNIZED DRUG - OTHER] SC SCH (10:00)
[2019-07-21] MEDS: GLATIRAMER SC SCH (10:00)
[2019-07-21] MEDS: ENSURE CLEAR Mixed Berry 8oz Carton PO SCH ×3 (11:23→17:53)
[2019-07-21] MEDS: AMITIZA 24 MCG PO SCH (21:28)
[2019-07-21] MEDS: PANTOPRAZOLE 40 MG TAB PO SCH (21:29)
[2019-07-22] MEDS: DONNATAL 5ml ORAL Elix (BELLADONNA ALK-PHENOBARB) PO SCH ×3 (02:37→17:36)
[2019-07-22] MEDS: MORPHINE SULFATE 10 MG/5 ML ORAL SOLN PO PRN ×3 (05:55→18:53)
[2019-07-22 06:19] LABS: Basophils # (auto) 0.1 uL; Eosinophils # (auto) 0.2 uL; Eosinophils % (auto) 4.5 % (0.0-7.0); Hematocrit 35.4 % (36.0-46.0); Hemoglobin 12.6 g/dL (12.2-16.2); Lymphocytes # (auto) 2.1 uL; Lymphocytes % (auto) 54.7 % (10.0-50.0); Mean Corpuscular Hemoglobin 33.7 pg (28.0-32.0); Mean Corpuscular Hgb Conc. 35.5 g/dL (32.0-36.0); Mean Corpuscular Volume 94.8 fL (80.0-100.0); Monocytes # (auto) 0.3 uL; Monocytes % (auto) 8.9 % (0.0-12.0); Neutrophils % (auto) 27.9 % (37.0-80.0); Nucleated Red Blood Cells % 0.2 %; Platelet Count (auto) 188 10^3/uL (140-450); Red Blood Cells 3.73 10^6/uL (4.0-5.20); White Blood Cell 3.8 10^3/uL (4.4-10.8)
[2019-07-22 06:44] LABS: Potassium 3.5 mmol/L (3.5-5.1)
[2019-07-22 06:49] LABS: Albumin 2.8 g/dL (3.4-5.0); Bilirubin, Total 0.2 mg/dL (0.2-1.0); Total Protein 5.8 g/dL (6.4-8.2)
[2019-07-22] MEDS: SUCRALFATE 1 GM/10 ML ORAL SUSP GT SCH ×3 (06:56→17:36)
[2019-07-22 08:00] VITALS: BP 95/61
[2019-07-22 08:37] VITALS: BP 95/61
[2019-07-22] MEDS: NICOTINE 14 MG/24HR TOPICAL PATCH TD SCH (10:32)
[2019-07-22] MEDS: LEVETIRACETAM 500 MG TAB PO SCH ×2 (10:34→22:45)
[2019-07-22] MEDS: OXYBUTYNIN CHL 5 MG TAB PO SCH ×2 (10:34→22:45)
[2019-07-22] MEDS: PREGABALIN CAPSULE 75 MG CAP PO SCH ×2 (10:35→22:45)
[2019-07-22] MEDS: carBAMazepine 200 MG TAB PO SCH ×2 (10:35→22:45)
[2019-07-22] MEDS: PANTOPRAZOLE 40 MG TAB PO SCH ×2 (10:35→22:45)
[2019-07-22] MEDS: SERTRALINE HCL 50 MG TAB PO SCH (10:36)
[2019-07-22] MEDS: ENSURE CLEAR Mixed Berry 8oz Carton PO SCH ×3 (10:36→18:19)
[2019-07-22] MEDS: HYOSCYAMINE SULF 0.125 MG ODT TAB PO PRN ×2 (12:52→17:40)
[2019-07-22 14:00] VITALS: BP 101/66
[2019-07-22 17:00] VITALS: BP 95/67
[2019-07-22 20:15] VITALS: BP 83/63
[2019-07-22 22:00] VITALS: BP 83/63
[2019-07-22] MEDS: AMITIZA 24 MCG PO SCH (22:44)
[2019-07-23] MEDS: MORPHINE SULFATE 10 MG/5 ML ORAL SOLN PO PRN ×4 (00:57→21:23)
[2019-07-23] MEDS: DONNATAL 5ml ORAL Elix (BELLADONNA ALK-PHENOBARB) PO SCH ×3 (02:10→16:40)
[2019-07-23 05:00] VITALS: BP 96/60
[2019-07-23] MEDS: HYOSCYAMINE SULF 0.125 MG ODT TAB PO PRN ×2 (05:25→10:14)
[2019-07-23 05:39] LABS: Basophils # (auto) 0 uL; Basophils % (auto) 0.4 % (0.0-2.0); Eosinophils # (auto) 0.2 uL; Eosinophils % (auto) 5.3 % (0.0-7.0); Hematocrit 34.8 % (36.0-46.0); Hemoglobin 12.2 g/dL (12.2-16.2); Lymphocytes # (auto) 2.2 uL; Lymphocytes % (auto) 52.5 % (10.0-50.0); Mean Corpuscular Hemoglobin 33.6 pg (28.0-32.0); Mean Corpuscular Hgb Conc. 35.2 g/dL (32.0-36.0); Mean Corpuscular Volume 95.5 fL (80.0-100.0); Monocytes # (auto) 0.4 uL; Monocytes % (auto) 9.7 % (0.0-12.0); Neutrophils # (auto) 1.4 uL; Neutrophils % (auto) 32.1 % (37.0-80.0); Nucleated Red Blood Cells % 0.1 %; Platelet Count (auto) 190 10^3/uL (140-450); Red Blood Cells 3.64 10^6/uL (4.0-5.20); Red Cell Distribution Width 11.9 % (11.8-14.3); White Blood Cell 4.3 10^3/uL (4.4-10.8)
[2019-07-23 05:50] LABS: INR 1.07 (0.9-1.15)
[2019-07-23 05:55] LABS: Potassium 3.6 mmol/L (3.5-5.1)
[2019-07-23 05:59] LABS: BUN/Creatinine Ratio 21.4
[2019-07-23] MEDS: SUCRALFATE 1 GM/10 ML ORAL SUSP GT SCH ×3 (06:57→16:40)
[2019-07-23 08:45] VITALS: BP 90/55
[2019-07-23] MEDS ORDERED: GOLYTELY 4L KIT PO ONE (10:00)
[2019-07-23] MEDS: LEVETIRACETAM 500 MG TAB PO SCH ×2 (10:14→22:19)
[2019-07-23] MEDS: PREGABALIN CAPSULE 75 MG CAP PO SCH ×2 (10:14→22:19)
[2019-07-23] MEDS: NICOTINE 14 MG/24HR TOPICAL PATCH TD SCH (10:14)
[2019-07-23] MEDS: carBAMazepine 200 MG TAB PO SCH ×2 (10:15→22:20)
[2019-07-23] MEDS: SERTRALINE HCL 50 MG TAB PO SCH (10:15)
[2019-07-23] MEDS: PANTOPRAZOLE 40 MG TAB PO SCH ×2 (10:16→22:19)
[2019-07-23] MEDS: OXYBUTYNIN CHL 5 MG TAB PO SCH ×2 (10:16→22:19)
[2019-07-23] MEDS: ENSURE CLEAR Mixed Berry 8oz Carton PO SCH ×3 (10:16→16:40)
[2019-07-23 13:00] VITALS: BP 99/64
[2019-07-23 17:00] VITALS: BP 136/79
[2019-07-23 20:00] VITALS: BP 109/63
[2019-07-23] MEDS ORDERED: MORPHINE SULFATE 10 MG/5 ML ORAL SOLN ONE ×2 (21:11→21:20)
[2019-07-23] MEDS ORDERED: MORPHINE SULFATE 10 MG/5 ML ORAL SOLN PO PRN (21:15)
[2019-07-23] MEDS: AMITIZA 24 MCG PO SCH (22:18)
[2019-07-23 23:01] VITALS: BP 188/89
[2019-07-24] MEDS: MORPHINE SULFATE 10 MG/5 ML ORAL SOLN PO PRN ×3 (04:51→18:58)
[2019-07-24 05:00] VITALS: BP 104/70
[2019-07-24] MEDS: DONNATAL 5ml ORAL Elix (BELLADONNA ALK-PHENOBARB) PO SCH ×3 (05:45→17:58)
[2019-07-24] MEDS: SUCRALFATE 1 GM/10 ML ORAL SUSP GT SCH ×3 (05:45→17:00)
[2019-07-24 06:39] LABS: Basophils # (auto) 0.1 uL; Basophils % (auto) 2.8 % (0.0-2.0); Eosinophils # (auto) 0.1 uL; Eosinophils % (auto) 4.1 % (0.0-7.0); Hematocrit 37.1 % (36.0-46.0); Hemoglobin 12.8 g/dL (12.2-16.2); Lymphocytes # (auto) 1.3 uL; Lymphocytes % (auto) 45.5 % (10.0-50.0); Mean Corpuscular Hemoglobin 33.4 pg (28.0-32.0); Mean Corpuscular Hgb Conc. 34.6 g/dL (32.0-36.0); Mean Corpuscular Volume 96.4 fL (80.0-100.0); Monocytes # (auto) 0.3 uL; Monocytes % (auto) 11.4 % (0.0-12.0); Neutrophils # (auto) 1.1 uL; Neutrophils % (auto) 36.2 % (37.0-80.0); Nucleated Red Blood Cells % 0.1 %; Platelet Count (auto) 183 10^3/uL (140-450); Red Blood Cells 3.85 10^6/uL (4.0-5.20); Red Cell Distribution Width 11.7 % (11.8-14.3)
[2019-07-24 06:57] LABS: Potassium 3.2 mmol/L (3.5-5.1)
[2019-07-24 07:00] LABS: BUN/Creatinine Ratio 12.2
[2019-07-24 09:00] VITALS: BP 135/83
[2019-07-24] MEDS: PANTOPRAZOLE 40 MG TAB PO SCH ×2 (10:00→22:52)
[2019-07-24] MEDS: LEVETIRACETAM 500 MG TAB PO SCH ×2 (10:16→22:51)
[2019-07-24] MEDS: carBAMazepine 200 MG TAB PO SCH ×2 (10:17→22:51)
[2019-07-24] MEDS: PREGABALIN CAPSULE 75 MG CAP PO SCH (11:55)
[2019-07-24] MEDS: SERTRALINE HCL 50 MG TAB PO SCH (11:56)
[2019-07-24] MEDS: OXYBUTYNIN CHL 5 MG TAB PO SCH (11:56)
[2019-07-24] MEDS: NICOTINE 14 MG/24HR TOPICAL PATCH TD SCH (11:57)
[2019-07-24] MEDS: ENSURE CLEAR Mixed Berry 8oz Carton PO SCH ×3 (11:57→17:59)
[2019-07-24 13:00] VITALS: BP 131/76
[2019-07-24 17:00] VITALS: BP 99/55
[2019-07-24] MEDS: [UNRECOGNIZED DRUG - OTHER] SC SCH (17:58)
[2019-07-24] MEDS: GLATIRAMER SC SCH (17:58)
[2019-07-24 22:00] VITALS: BP 81/51
[2019-07-25] MEDS: OXYBUTYNIN CHL 5 MG TAB PO SCH ×3 (00:49→21:07)
[2019-07-25] MEDS: AMITIZA 24 MCG PO SCH ×2 (00:49→21:06)
[2019-07-25] MEDS: PREGABALIN CAPSULE 75 MG CAP PO SCH ×3 (00:49→21:08)
[2019-07-25] MEDS: DONNATAL 5ml ORAL Elix (BELLADONNA ALK-PHENOBARB) PO SCH ×3 (02:15→18:15)
[2019-07-25] MEDS: MORPHINE SULFATE 10 MG/5 ML ORAL SOLN PO PRN ×3 (04:23→21:09)
[2019-07-25 05:15] VITALS: BP 123/80
[2019-07-25] MEDS: SUCRALFATE 1 GM/10 ML ORAL SUSP GT SCH ×3 (05:40→18:00)
[2019-07-25] MEDS: ENSURE CLEAR Mixed Berry 8oz Carton PO SCH ×3 (08:00→18:00)
[2019-07-25] MEDS ORDERED: LEVETIRACETAM INJ 1,000 MG in D5W 5% 100 ML IV ONE (08:45)
[2019-07-25 09:00] VITALS: BP 138/79
[2019-07-25] MEDS: LEVETIRACETAM 500 MG TAB PO SCH ×2 (11:10→21:07)
[2019-07-25 11:37] VITALS: BP 150/77
[2019-07-25] MEDS ORDERED: MIDAZOLAM HCL 1MG/1ML-2 ML VIAL ONE (12:06)
[2019-07-25] MEDS ORDERED: LIDOCAINE 2% (LOCAL ANESTH.) PF 5ml SDV ONE (12:07)
[2019-07-25] MEDS ORDERED: PROPOFOL 10 MG/ML 20 ML IV ONE (12:07)
[2019-07-25] MEDS ORDERED: GLYCOPYRROLATE 0.2 MG/ML 1ML VIAL ONE (12:07)
[2019-07-25] MEDS ORDERED: diphenhdrAMINE HCL 50 MG/1 ML VL ONE (12:07)
[2019-07-25] MEDS ORDERED: ONDANSETRON HCL 4 MG/2 ML VIAL IV PRN (12:15)
[2019-07-25] MEDS ORDERED: NALOXONE HCL 0.4 MG/ML VIAL IV PRN (12:15)
[2019-07-25] MEDS ORDERED: HYDROmorphone HCL 2 MG/ML VL IV PRN ×2 (12:15)
[2019-07-25] MEDS: NICOTINE 14 MG/24HR TOPICAL PATCH TD SCH (14:27)
[2019-07-25] MEDS: PANTOPRAZOLE 40 MG TAB PO SCH ×2 (14:28→21:07)
[2019-07-25] MEDS: carBAMazepine 200 MG TAB PO SCH ×2 (14:28→21:07)
[2019-07-25] MEDS: SERTRALINE HCL 50 MG TAB PO SCH (14:29)
[2019-07-25 17:00] VITALS: BP 135/72
[2019-07-25 21:30] VITALS: BP_SYST 121; BP_SYST 80; BP_DIAS 52; BP_DIAS 65
[2019-07-26] MEDS: DONNATAL 5ml ORAL Elix (BELLADONNA ALK-PHENOBARB) PO SCH ×2 (02:15→10:55)
[2019-07-26] MEDS: MORPHINE SULFATE 10 MG/5 ML ORAL SOLN PO PRN ×2 (04:12→12:53)
[2019-07-26 05:00] VITALS: BP 128/74
[2019-07-26] MEDS: SUCRALFATE 1 GM/10 ML ORAL SUSP GT SCH (05:39)
[2019-07-26 08:00] VITALS: BP 121/74
[2019-07-26] MEDS: ENSURE CLEAR Mixed Berry 8oz Carton PO SCH (08:00)
[2019-07-26] MEDS: PANTOPRAZOLE 40 MG TAB PO SCH (10:53)
[2019-07-26] MEDS: PREGABALIN CAPSULE 75 MG CAP PO SCH (10:54)
[2019-07-26] MEDS: NICOTINE 14 MG/24HR TOPICAL PATCH TD SCH (10:54)
[2019-07-26] MEDS: SERTRALINE HCL 50 MG TAB PO SCH (10:55)
[2019-07-26] MEDS: carBAMazepine 200 MG TAB PO SCH (10:55)
[2019-07-26] MEDS: OXYBUTYNIN CHL 5 MG TAB PO SCH (10:55)
[2019-07-26] MEDS: LEVETIRACETAM 500 MG TAB PO SCH (10:55)
[2019-07-26] MEDS: [UNRECOGNIZED DRUG - OTHER] SC SCH (11:05)
[2019-07-26] MEDS: GLATIRAMER SC SCH (11:05)
[2019-07-26 12:00] VITALS: BP 103/62
== END 2019-07-26 13:30 | disposition home or self-care (01) | DRG 392 ==
LOC: ER 15:13 → EDBD 15:13 → TELE 15:14 → TELE-WESTW 23:38
PROVIDERS: ADMIT Internal Medicine Cardiovascular Disease; ATTEND Internal Medicine Cardiovascular Disease
PROC: 0D758ZZ Dilation of Esophagus, Via Natural or Artificial Opening Endoscopic (ICD-10-PCS; 2019-07-25)
PROC: 0DB68ZX Excision of Stomach, Via Natural or Artificial Opening Endoscopic, Diagnostic (ICD-10-PCS; principal; 2019-07-25 12:08)
PROC: 0DJD8ZZ Inspection of Lower Intestinal Tract, Via Natural or Artificial Opening Endoscopic (ICD-10-PCS; 2019-07-25 12:08)
DX: K29.70 Gastritis, unspecified, without bleeding (principal); E44.0 Moderate protein-calorie malnutrition; E87.1 Hypo-osmolality and hyponatremia; G40.209 Localization-related (focal) (partial) symptomatic epilepsy and epileptic syndromes with complex partial seizures, not intractable, without status epilepticus; R64 Cachexia; K58.1 Irritable bowel syndrome with constipation; K64.4 Residual hemorrhoidal skin tags; G35 Multiple sclerosis; E78.5 Hyperlipidemia, unspecified; E86.0 Dehydration; F17.210 Nicotine dependence, cigarettes, uncomplicated; F32.9 Major depressive disorder, single episode, unspecified; F41.9 Anxiety disorder, unspecified; G89.29 Other chronic pain; K31.84 Gastroparesis; K59.00 Constipation, unspecified; R13.10 Dysphagia, unspecified; Z82.3 Family history of stroke; Z82.49 Family history of ischemic heart disease and other diseases of the circulatory system; Z82.5 Family history of asthma and other chronic lower respiratory diseases; Z86.73 Personal history of transient ischemic attack (TIA), and cerebral infarction without residual deficits; Z90.49 Acquired absence of other specified parts of digestive tract; Z91.040 Latex allergy status; Z68.20 Body mass index [BMI] 20.0-20.9, adult
CPT/HCPCS: 36415; 70450; 71045; 72148; 73721; 74176; 80048; 80053; 81001; 82150; 82542; 83690; 84484; 85025; 85610; 97116; 97163; 97530; 99291; G0378; J2001; J2250; J2405; J2704; J7060

== ENCOUNTER 2019-12-11 08:52 | Inpatient (IN) | payer BC ==
[~2019-12-11] VITALS: Ht 162.6 cm; Wt 53.7 kg
[~2019-12-11 08:52] MED LIST changes: -AMITRIP PO; -LEVE1TAB46 PO; -MORP1TAB14 PO
[2019-12-11] MEDS ORDERED: SODIUM CHLORIDE 0.9% 1,000 ML IV ONE ×4 (09:15→14:45)
[2019-12-11 09:26] LABS: Urine Bacteria NONE SEEN /hpf (None Seen); Urine Blood Negative /uL (Negative); Urine Specific Gravity 1.006 (1.001-1.035); Urine WBC 4 /hpf (0 - 5)
[2019-12-11 09:40] LABS: Basophils # (auto) 0.1 10 ^3/uL (0-0.2); Basophils % (auto) 1.4 % (0.0-2.0); Eosinophils # (auto) 0.2 10 ^3/uL (0-0.8); Eosinophils % (auto) 2.5 % (0.0-7.0); Hematocrit 39.8 % (36.0-46.0); Hemoglobin 13.8 g/dL (12.2-16.2); Lymphocytes # (auto) 1.7 10 ^3/uL (0.4-5.4); Lymphocytes % (auto) 28.3 % (10.0-50.0); Mean Corpuscular Hemoglobin 33.6 pg (28.0-32.0); Mean Corpuscular Hgb Conc. 34.7 g/dL (32.0-36.0); Mean Corpuscular Volume 96.9 fL (80.0-100.0); Monocytes # (auto) 0.7 10 ^3/uL (0-1.3); Monocytes % (auto) 11.1 % (0.0-12.0); Neutrophils # (auto) 3.5 10 ^3/uL (1.6-8.6); Neutrophils % (auto) 56.7 % (37.0-80.0); Nucleated Red Blood Cells % 0.1 %; Platelet Count (auto) 193 10^3/uL (140-450); Red Blood Cells 4.11 10^6/uL (4.0-5.20); White Blood Cell 6.1 10^3/uL (4.4-10.8)
[2019-12-11 09:56] LABS: Albumin 3.6 g/dL (3.4-5.0); Amylase 45 U/L (25-115); Anion Gap 8 (5-15); Blood Urea Nitrogen 7 mg/dL (7-18); Calcium 8.5 mg/dL (8.5-10.1); Carbon Dioxide 27 mmol/L (21-32); Chloride 100 mmol/L (98-107); Glucose 105 mg/dL (74-106); Lipase 88 U/L (73-393); Magnesium 2.4 mg/dL (1.6-2.6); Potassium 3.3 mmol/L (3.5-5.1); Sodium 135 mmol/L (136-145)
[2019-12-11 10:03] LABS: Alanine Aminotransferase 25 U/L (13-56); Alkaline Phosphatase 85 U/L (45-117); Aspartate Aminotransferase 22 U/L (15-37); BUN/Creatinine Ratio 11.7; Bilirubin, Total 0.4 mg/dL (0.2-1.0); GFR African American 131 mL/min; GFR Non-African American 108 mL/min; Total Protein 6.9 g/dL (6.4-8.2)
[2019-12-11] MEDS ORDERED: POTASSIUM EFFERVESENT TAB 25 MEQ PO ONE (11:45)
[2019-12-11] MEDS ORDERED: LORazepam 2MG/ML-1ML VIAL ONE (12:11)
[2019-12-11] MEDS ORDERED: LORazepam 2MG/ML-1ML VIAL IV ONE (12:15)
[2019-12-11] MEDS ORDERED: NITROGLYCERIN 0.4 MG SL TAB SL PRN (12:45)
[2019-12-11] MEDS ORDERED: ONDANSETRON HCL 4 MG/2 ML VIAL IV PRN (12:45)
[2019-12-11] MEDS ORDERED: MORPHINE SULF INJ 2 MG/ML SYRINGE 1ML IV PRN (12:45)
[2019-12-11] MEDS ORDERED: GLATIRAMER ACETATE 40 MG SC SCH (12:45)
[2019-12-11] MEDS ORDERED: HYDROmorphone HCL 2 MG/ML VL IV PRN (12:45)
[2019-12-11] MEDS: MORPHINE SULF 15mg ER tab PO SCH ×2 (14:00→21:32)
--- NOTE | 2019-12-11 17:03 | NUR ---
Telemetry admit from ER SCARLET CHIANG admitted to Telemetry unit after SBAR received. Patient oriented to Julia Torres, primary RN, unit, room, bed, and unit policies regarding patient care and visiting hours. Patient now on continuous telemetry monitoring, tele box #30 and telemetry reading on arrival to unit is SR @ 67 BPM. Bed set to lowest position/locked, bedside rails up x2, bed alarm on, call light within reach. Instructed patient to call for assistance. Patient verbalized understanding. Will continue to monitor q1hr and prn.
[2019-12-11] MEDS ORDERED: PANT40T (17:59)
[2019-12-11] MEDS ORDERED: MORP1CAP31 PO (17:59)
[2019-12-11 18:10] VITALS: BP 107/67
--- NOTE | 2019-12-11 19:30 | NUR ---
Opening Shift Report Assumed patient care. Patient is AOx3, seems confused about her situation at this time. Patient knows where she is at and her name. Patient bed set to lowest position/locked, bedside rails up x2 and padded, bed alarm on, call light within reach. No S/S of distress or SOB. Instructed patient to call for assistance. Patient verbalized understanding. Will continue to monitor q1hr and prn.
[2019-12-11 20:00] VITALS: BP 120/66
[2019-12-11 20:17] LABS: INR 1.09 (0.9-1.15); Partial Thromboplastin Time 27.9 sec (23.64-32.05)
[2019-12-11] MEDS: carBAMazepine 200 MG TAB PO SCH (21:28)
[2019-12-11] MEDS: levETIRAcetam 500 MG TAB PO SCH (21:28)
[2019-12-11] MEDS: DOCUSATE SOD 100 MG CAP PO SCH (21:29)
[2019-12-11] MEDS: clonazePAM 0.5 MG TAB PO SCH (21:33)
[2019-12-11 22:00] VITALS: BP 120/66
[2019-12-12 05:38] VITALS: BP 119/71
[2019-12-12] MEDS: MORPHINE SULF 15mg ER tab PO SCH ×3 (05:49→22:55)
--- NOTE | 2019-12-12 07:06 | NUR ---
Closing Note Report given to morning RN. Patient AOx4, patient safety precautions in place.
--- NOTE | 2019-12-12 07:30 | NUR ---
OPENING NOTE ASSUMED CARE OF PT. ALERT AND AWAKE. NO S/S OF SOB/DISTRESS NOTED. BED SET TO LOWEST POSITION/LOCKED. BEDSIDE RAILS UP X2. CALL LIGHT WITH IN REACH. BED ALARM ON. INSTRUCTED PATIENT TO CALL FOR ASSISTANCE. UPDATED PT ON POC. WILL CONTINUE TO MONITOR Q1HR AND PRN.
[2019-12-12 09:02] VITALS: BP 146/80
[2019-12-12] MEDS ORDERED: fentaNYL CITRATE 100 MCG/2 ML VL IV ONE (09:15)
[2019-12-12] MEDS ORDERED: MIDAZOLAM HCL 1MG/1ML-2 ML VIAL IV ONE (09:15)
[2019-12-12] MEDS: clonazePAM 0.5 MG TAB PO SCH ×2 (09:25→22:54)
[2019-12-12] MEDS: POLYETHYLENE GLYCOL 17 GM PWDR PO SCH (09:26)
[2019-12-12] MEDS: DOCUSATE SOD 100 MG CAP PO SCH ×2 (09:26→22:00)
[2019-12-12] MEDS: SERTRALINE HCL 50 MG TAB PO SCH (09:26)
[2019-12-12] MEDS: levETIRAcetam 500 MG TAB PO SCH ×2 (09:26→22:53)
[2019-12-12] MEDS: carBAMazepine 200 MG TAB PO SCH ×2 (09:26→22:56)
[2019-12-12] MEDS: PANTOPRAZOLE 40 MG TAB PO SCH (09:26)
--- NOTE | 2019-12-12 12:00 | NUR ---
IV insertion IV access obtained, via clean sterile technique by inserting 22 gauge catheter at right FA after 1 attempt(s). IV secured properly. No trauma to site. Patient tolerated well. IV removal Left AC 18 gauge IV cath DC'd with clean sterile technique, catheter fully intact. Pressure dressing applied to site. Patient tolerated well.
[2019-12-12] MEDS: HYDROmorphone HCL 2 MG/ML VL IV PRN (12:28)
[2019-12-12 13:07] VITALS: BP 113/72
[2019-12-12 16:49] VITALS: BP 135/72
[2019-12-12] MEDS ORDERED: LORazepam 0.5 MG TAB PO PRN (17:15)
--- NOTE | 2019-12-12 19:15 | NUR ---
Opening Shift Report Assumed care of a patient. Patient is awake, alert, and oriented x 4. Patient bed set to lowest position, brakes locked, bedside rails up x 2 and padded, bed alarm on, call light within reach. No S/S of respiratory distress or SOB. Respirations are regular and non-labored. Garduno is patent and below the bladder level. Instructed patient to call for assistance as needed. Patient verbalized understanding. Will continue to monitor q1hr and prn.
[2019-12-12 20:00] VITALS: BP 117/70
[2019-12-12 22:00] VITALS: BP 117/70
[2019-12-12] MEDS: BACLOFEN 10 MG TAB PO SCH (22:00)
[2019-12-13] MEDS: HYDROmorphone HCL 2 MG/ML VL IV PRN (02:07)
[2019-12-13 05:47] VITALS: BP 129/68
[2019-12-13] MEDS: MORPHINE SULF 15mg ER tab PO SCH ×3 (06:13→22:47)
--- NOTE | 2019-12-13 07:30 | NUR ---
Opening Shift Note Assumed care of patient, awake and alert. No S/S of distress/SOB or pain. Bed is low, locked with 2x side rails up. Call light is within reach. Instructed on POC and to call for assist PRN, will continue to monitor for changes Q1hr and PRN.
[2019-12-13 09:26] VITALS: BP 139/83
[2019-12-13] MEDS: clonazePAM 0.5 MG TAB PO SCH ×2 (10:00→22:46)
[2019-12-13] MEDS: POLYETHYLENE GLYCOL 17 GM PWDR PO SCH (10:00)
[2019-12-13] MEDS: DOCUSATE SOD 100 MG CAP PO SCH ×2 (10:00→22:00)
[2019-12-13] MEDS: BACLOFEN 10 MG TAB PO SCH ×2 (10:00→22:00)
[2019-12-13] MEDS: carBAMazepine 200 MG TAB PO SCH ×2 (10:29→22:47)
[2019-12-13] MEDS ORDERED: GLATIRAMER ACETATE 40 MG SC SCH (12:00)
[2019-12-13 13:02] VITALS: BP 122/79
[2019-12-13] MEDS: PANTOPRAZOLE 40 MG TAB PO SCH (15:21)
[2019-12-13] MEDS: levETIRAcetam 500 MG TAB PO SCH ×2 (15:21→22:46)
[2019-12-13] MEDS: SERTRALINE HCL 50 MG TAB PO SCH (15:21)
[2019-12-13 16:46] VITALS: BP 144/73
--- NOTE | 2019-12-13 19:12 | NUR ---
Opening Shift Report Assumed care of a patient. Patient is awake, alert, and oriented x 4. Patient bed set to lowest position, brakes locked, bedside rails up x 2 and padded, bed alarm on, call light within reach. No S/S of respiratory distress. Respirations are regular and non-labored. Garduno is patent, below the bladder level, attached to bed frame. POC discussed with the patient. Patient instructed to call for assistance as needed. Patient verbalized understanding. Will continue to monitor q1hr and prn.
[2019-12-13 20:00] VITALS: BP 154/87
[2019-12-13 22:00] VITALS: BP 154/87
[2019-12-14 05:00] VITALS: BP 146/70
[2019-12-14] MEDS: MORPHINE SULF 15mg ER tab PO SCH ×3 (06:12→22:12)
[2019-12-14] MEDS: DOCUSATE SOD 100 MG CAP PO SCH ×2 (08:23→22:00)
[2019-12-14] MEDS: POLYETHYLENE GLYCOL 17 GM PWDR PO SCH (08:24)
[2019-12-14] MEDS ORDERED: fentaNYL CITRATE 100 MCG/2 ML VL IV ONE (08:45)
[2019-12-14] MEDS ORDERED: MIDAZOLAM HCL 1MG/1ML-2 ML VIAL IV ONE (08:45)
[2019-12-14 09:00] VITALS: BP 153/86
[2019-12-14 09:51] LABS: Albumin 3.4 g/dL (3.4-5.0); Calcium 8.2 mg/dL (8.5-10.1); Potassium 3.6 mmol/L (3.5-5.1)
[2019-12-14 09:54] LABS: BUN/Creatinine Ratio 17.6
[2019-12-14 09:57] LABS: Bilirubin, Total 0.4 mg/dL (0.2-1.0); Total Protein 6.6 g/dL (6.4-8.2)
[2019-12-14] MEDS: BACLOFEN 10 MG TAB PO SCH ×2 (10:00→22:00)
[2019-12-14] MEDS: carBAMazepine 200 MG TAB PO SCH ×2 (10:30→22:14)
[2019-12-14] MEDS: SERTRALINE HCL 50 MG TAB PO SCH (10:30)
[2019-12-14] MEDS: PANTOPRAZOLE 40 MG TAB PO SCH (10:31)
[2019-12-14] MEDS: levETIRAcetam 500 MG TAB PO SCH ×2 (10:31→22:13)
[2019-12-14] MEDS: clonazePAM 0.5 MG TAB PO SCH ×2 (10:31→22:00)
[2019-12-14 10:43] LABS: Basophils # (auto) 0.1 10 ^3/uL (0-0.2); Basophils % (auto) 1.6 % (0.0-2.0); Eosinophils # (auto) 0 10 ^3/uL (0-0.8); Eosinophils % (auto) 0.4 % (0.0-7.0); Hematocrit 41.2 % (36.0-46.0); Hemoglobin 14.1 g/dL (12.2-16.2); Lymphocytes # (auto) 1.5 10 ^3/uL (0.4-5.4); Lymphocytes % (auto) 27.1 % (10.0-50.0); Mean Corpuscular Hemoglobin 33.1 pg (28.0-32.0); Mean Corpuscular Hgb Conc. 34.2 g/dL (32.0-36.0); Mean Corpuscular Volume 96.6 fL (80.0-100.0); Monocytes # (auto) 0.5 10 ^3/uL (0-1.3); Monocytes % (auto) 8.2 % (0.0-12.0); Neutrophils # (auto) 3.5 10 ^3/uL (1.6-8.6); Neutrophils % (auto) 62.7 % (37.0-80.0); Platelet Count (auto) 182 10^3/uL (140-450); Red Blood Cells 4.26 10^6/uL (4.0-5.20); White Blood Cell 5.5 10^3/uL (4.4-10.8)
[2019-12-14 13:00] VITALS: BP 141/68
--- NOTE | 2019-12-14 14:39 | NUR ---
Nutrition Assessment Note please see attached link for complete assessment Est Energy needs BW [id number] kcals (25-30 kcal/kgBW), Est Protein needs: 55-66 gms/day (1.0-1.2 gm/kgBW) Will continue to monitor and reassess prn. Addendum: 12/14/19 at [address] Amended: Links added.
[2019-12-14 17:46] VITALS: BP 149/82
--- NOTE | 2019-12-14 19:25 | NUR ---
opening note pt up to bedside commode. pt is A&Ox4. respirations even and nonlabored on room air. POC discussed. bed in low locked position, call light within reach.
[2019-12-14 22:00] VITALS: BP 138/81
--- NOTE | 2019-12-14 22:10 | NUR ---
pt refused Colace, Klonopin, and Baclofen.
--- NOTE | 2019-12-15 02:39 | NUR ---
paged Dr. Wilson regarding pts current medication orders
--- NOTE | 2019-12-15 02:45 | NUR ---
pain pt c/o of "head to toe" pain, rating of 10/10. pt will receive dilaudid 0.5mg.
[2019-12-15] MEDS: HYDROmorphone HCL 2 MG/ML VL IV PRN (02:55)
[2019-12-15 03:00] VITALS: BP 132/80
[2019-12-15 05:00] VITALS: BP 131/79
[2019-12-15] MEDS: MORPHINE SULF 15mg ER tab PO SCH ×2 (05:51→13:53)
--- NOTE | 2019-12-15 07:17 | NUR ---
closing note pt resting in left lateral position, watching tv. respirations even and nonlabored on room air. endorsed care to KIESHA Bagley. bed in low locked position, call light within reach.
[2019-12-15 08:52] VITALS: BP 131/84
[2019-12-15] MEDS: DOCUSATE SOD 100 MG CAP PO SCH (09:32)
[2019-12-15] MEDS: PANTOPRAZOLE 40 MG TAB PO SCH (09:33)
[2019-12-15] MEDS: clonazePAM 0.5 MG TAB PO SCH ×2 (09:33→13:53)
[2019-12-15] MEDS: BACLOFEN 10 MG TAB PO SCH (09:33)
[2019-12-15] MEDS: POLYETHYLENE GLYCOL 17 GM PWDR PO SCH (09:33)
[2019-12-15] MEDS: carBAMazepine 200 MG TAB PO SCH (09:34)
[2019-12-15] MEDS: levETIRAcetam 500 MG TAB PO SCH (09:34)
[2019-12-15] MEDS: SERTRALINE HCL 50 MG TAB PO SCH (09:34)
[2019-12-15 13:00] VITALS: BP 119/70
--- NOTE | 2019-12-15 15:06 | NUR ---
Discharge instructions given as ordered. Encourage to follow up with PMD as instructed. All questions and concerns addressed. Patient verbalized understanding. Medication reconciliation form completed and copy given to patient. Home medications held in Pharmacy returned to patient. IV removed with catheter intact, pressure dressing applied. Telemetry unit returned to ICU. Patient taken to vehicle via wheelchair with all personal belongings, accompanied by staff and family member. No distress noted at time of departure.
--- NOTE | 2019-12-15 15:20 | NUR ---
Assessment Patient is a 63 year old female who is alert and oriented. Prior to admission patient lived home alone and functioned with assistance from her daily caregiver. Per patients Wilton Loja [phone] he comes and helps and checks on patient often. Patients pcp is Dr. Wilson. Patient has a fww, and an electric wheelchair and transport chair for home use. Patient has good family support. Per patient she will return to her prior living arrangements and her will transport her home. Advised patient there is a social service consult for home pia service. Informed patient there is no home health who is contracted with [facility] however, [facility] [phone]. Informed patient clinical information will be faxed to agency.Informed patient she has the right to participate in all discharge planning. Patient verbalized understanding and agreed to discharge plan. Faxed clinical information to [facility]. Per Allan with [email or web address] [facility] patient has been accepted and service to start within 24-48hrs upon d/c day. Informed patient and KIESHA Bagley. Addendum: 12/15/19 at 1526 by JOSE VALENTINE Amended: Links added.
== END 2019-12-15 15:00 | disposition home health service (06) | DRG 391 ==
LOC: ER 08:52 → EDBD 08:52 → TELE 08:53 → TELE-CENTR 17:03
PROVIDERS: ADMIT Nurse Practitioner Acute Care; ATTEND Internal Medicine Cardiovascular Disease
DX: K59.03 Drug induced constipation (principal); E43 Unspecified severe protein-calorie malnutrition; G93.41 Metabolic encephalopathy; G35 Multiple sclerosis; R33.9 Retention of urine, unspecified; K58.1 Irritable bowel syndrome with constipation; E86.0 Dehydration; E87.6 Hypokalemia; F17.210 Nicotine dependence, cigarettes, uncomplicated; F41.9 Anxiety disorder, unspecified; G40.909 Epilepsy, unspecified, not intractable, without status epilepticus; G89.4 Chronic pain syndrome; F32.9 Major depressive disorder, single episode, unspecified; M54.5 Low back pain; T40.605A Adverse effect of unspecified narcotics, initial encounter; Z91.040 Latex allergy status; M41.9 Scoliosis, unspecified; Z68.20 Body mass index [BMI] 20.0-20.9, adult; Z79.891 Long term (current) use of opiate analgesic; Z82.3 Family history of stroke; Z82.49 Family history of ischemic heart disease and other diseases of the circulatory system; Y92.89 Other specified places as the place of occurrence of the external cause; Z82.5 Family history of asthma and other chronic lower respiratory diseases; Z90.49 Acquired absence of other specified parts of digestive tract
CPT/HCPCS: 36415; 70450; 74176; 80053; 81001; 82150; 83615; 83690; 83735; 84443; 84484; 85025; 85610; 85730; 93005; 97110; 97116; 97530; 99291; G0378; J2250

== ENCOUNTER 2020-01-10 13:28 | Inpatient (IN) | payer BC ==
[~2020-01-10] VITALS: Ht 162.6 cm; Wt 53.6 kg
[~2020-01-10 13:28] MED LIST changes: +MORP1CAP31 PO; -MORP30TA PO; +PANT40T; -RANI150C3 PO
--- NOTE | 2020-01-10 14:00 | NUR ---
PATIENT ARRIVED ON UNIT. ORDERS RECEIVED. VS OBTAINED, PATIENT A/OX4 COMPLIANT. FALL PRECAUTIONS IN PLACE, EDUCATED ON POLICIES AND PROCEDURES. WILL CONTINUE TO MONITOR.
[2020-01-10] MEDS ORDERED: MORP30TA PO (14:23)
[2020-01-10] MEDS ORDERED: PREG225C8 PO (14:23)
[2020-01-10] MEDS ORDERED: SERT-275 PO (14:24)
[2020-01-10] MEDS ORDERED: PANT-62 PO (14:25)
[2020-01-10] MEDS ORDERED: OXYB5TAB61 PO (14:27)
[2020-01-10] MEDS ORDERED: GLAT40IN SC (14:28)
[2020-01-10] MEDS ORDERED: DOCU100T15 PO (14:29)
--- NOTE | 2020-01-10 14:30 | NUR ---
IV PLACED: RIGHT FOREARM 20G AFTER SECOND ATTEMPT.
[2020-01-10] MEDS ORDERED: HYOS0.1269 PO (14:32)
[2020-01-10] MEDS ORDERED: LACT10SO59 PO (14:33)
--- NOTE | 2020-01-10 15:14 | NUR ---
POM: COPAXONE MED TAKEN DOWN TO PHARMACY. WRISTBAND APPLIED.
--- NOTE | 2020-01-10 15:36 | NUR ---
PATIENT REFUSED PARDO AT THIS TIME: PER PATIENT, "MY BOWELS ARE TWISTED UP AND I DON'T THINK I CAN KEEP IT CLEAN, WITH ALL OF THE PROBLEMS I AM HAVING DOWN THERE." EDUCATION GIVEN REGARDING BENEFITS. PATIENT DECLINING PARDO AT THIS TIME, WILL ALLOW PARDO PLACEMENT AT A LATER TIME BEFORE SURGERY.
[2020-01-10 16:10] LABS: Basophils # (auto) 0.1 10 ^3/uL (0-0.2); Basophils % (auto) 1.4 % (0.0-2.0); Eosinophils # (auto) 0.1 10 ^3/uL (0-0.8); Eosinophils % (auto) 1.1 % (0.0-7.0); Hematocrit 41.4 % (36.0-46.0); Lymphocytes # (auto) 1.5 10 ^3/uL (0.4-5.4); Lymphocytes % (auto) 25.6 % (10.0-50.0); Mean Corpuscular Hgb Conc. 33.8 g/dL (32.0-36.0); Mean Corpuscular Volume 97.7 fL (80.0-100.0); Monocytes # (auto) 0.4 10 ^3/uL (0-1.3); Monocytes % (auto) 7.5 % (0.0-12.0); Neutrophils # (auto) 3.8 10 ^3/uL (1.6-8.6); Neutrophils % (auto) 64.4 % (37.0-80.0); Nucleated Red Blood Cells % 0.1 %; Platelet Count (auto) 205 10^3/uL (140-450); Red Blood Cells 4.23 10^6/uL (4.0-5.20); Red Cell Distribution Width 12.5 % (11.8-14.3); White Blood Cell 5.9 10^3/uL (4.4-10.8)
[2020-01-10 16:19] VITALS: BP 108/74
[2020-01-10 16:23] LABS: Albumin 3.8 g/dL (3.4-5.0); Calcium 8.5 mg/dL (8.5-10.1); Potassium 3.6 mmol/L (3.5-5.1)
[2020-01-10 16:26] LABS: BUN/Creatinine Ratio 10.2
[2020-01-10 16:29] LABS: Bilirubin, Total 0.6 mg/dL (0.2-1.0); INR 1.06 (0.9-1.15); Partial Thromboplastin Time 28.1 sec (23.64-32.05); Total Protein 7.2 g/dL (6.4-8.2)
--- NOTE | 2020-01-10 16:38 | NUR ---
CALL FROM MD BERMAN: ORDERS RECEIVED. WILL CONTINUE TO MONITOR.
[2020-01-10 17:00] VITALS: BP 96/58
--- NOTE | 2020-01-10 17:02 | NUR ---
PATIENT OOB: PATIENT ABLE TO AMBULATE OUT OF BED WITH FWW INDEPENDENTLY.
[2020-01-10] MEDS ORDERED: CARB200T4 PO (18:15)
--- NOTE | 2020-01-10 18:15 | NUR ---
MRSA AND URINE SENT TO LAB.
[2020-01-10] MEDS: D5W/SOD CHL 0.45%/KCL 20MEQ 1,000 ML IV SCH (18:48)
[2020-01-10] MEDS: MORPHINE SULF 30 mg ER tab PO SCH (18:48)
--- NOTE | 2020-01-10 19:17 | NUR ---
CARE ENDORSED TO NOC RN.
[2020-01-10] MEDS ORDERED: COPAXONE 40 MG/ML SC SCH (20:00)
[2020-01-10] MEDS: PREGABALIN CAPSULE 75 MG CAP PO SCH (21:37)
[2020-01-10] MEDS: levETIRAcetam 500 MG TAB PO SCH (21:38)
[2020-01-10] MEDS: PANTOPRAZOLE 40 MG TAB PO SCH (21:38)
[2020-01-10] MEDS: clonazePAM 0.5 MG TAB PO SCH (21:39)
[2020-01-10] MEDS: carBAMazepine 200 MG TAB PO SCH ×2 (21:41→21:57)
[2020-01-10] MEDS: ceFAZolin 1GM/50ML 50 ML IV SCH (21:41)
[2020-01-10 22:00] VITALS: BP 118/64
[2020-01-10] MEDS ORDERED: levETIRAcetam 500 MG TAB PO SCH (22:00)
[2020-01-10] MEDS: metroNIDAZOLE 500MG/100ML 100 ML IV SCH (22:58)
--- NOTE | 2020-01-11 01:00 | NUR ---
Seizure Pt changed to gown while trying to obtain EKG, pt had Seizure X [address] on monitor and O2 2l Seizure precaution initiated, all bed rails padded Dr. Steve méndez will continue monitor post seizure vitals 123/71 P: 61 O2sat 100% on O2 2l
[2020-01-11] MEDS: D5W/SOD CHL 0.45%/KCL 20MEQ 1,000 ML IV SCH ×3 (02:24→21:59)
[2020-01-11] MEDS ORDERED: LORazepam 2MG/ML-1ML VIAL IV ONE (03:15)
[2020-01-11] MEDS: ceFAZolin 1GM/50ML 50 ML IV SCH ×3 (04:42→21:59)
[2020-01-11 05:00] VITALS: BP 120/71
[2020-01-11] MEDS: metroNIDAZOLE 500MG/100ML 100 ML IV SCH ×3 (06:00→23:19)
[2020-01-11] MEDS: carBAMazepine 200 MG TAB PO SCH ×3 (06:00→22:03)
--- NOTE | 2020-01-11 08:52 | NUR ---
OPENING SHIFT NOTE: PATIENT AWAKE RESTING IN BED. A/OX4 RESPIRATIONS EVEN AND UNLABORED. SEIZURE PRECAUTIONS IN PLACE, UPDATED ON PLAN OF CARE. CALL LIGHT WITHIN REACH, FALL PRECAUTIONS IN PLACE, WILL CONTINUE TO MONITOR.
[2020-01-11 09:02] VITALS: BP 116/63
[2020-01-11] MEDS ORDERED: LIDOCAINE 5% TOPICAL PATCH TOP SCH (10:00)
[2020-01-11] MEDS: levETIRAcetam 500 MG TAB PO SCH ×2 (10:20→22:04)
[2020-01-11] MEDS: PREGABALIN CAPSULE 75 MG CAP PO SCH ×2 (10:20→22:02)
[2020-01-11] MEDS: MORPHINE SULF 30 mg ER tab PO SCH ×2 (10:20→22:04)
[2020-01-11] MEDS: PANTOPRAZOLE 40 MG TAB PO SCH ×2 (10:20→22:04)
[2020-01-11] MEDS: SERTRALINE HCL 50 MG TAB PO SCH (10:21)
[2020-01-11] MEDS: NICOTINE 14 MG/24HR TOPICAL PATCH TD SCH (10:21)
[2020-01-11] MEDS: clonazePAM 0.5 MG TAB PO SCH ×2 (10:22→22:04)
--- NOTE | 2020-01-11 11:00 | NUR ---
MD REBOLLAR AT BEDSIDE.
[2020-01-11 13:16] VITALS: BP 114/66
--- NOTE | 2020-01-11 13:20 | NUR ---
MD BUSH AT BEDSIDE: PLAN OF CARE DISCUSSED. SURGERY NOT TO BE DONE AT THIS TIME. RESUME DIET ORDER GIVEN. MD TO EXPLORE OTHER LESS INVASIVE OPTIONS FOR PATIENT.
--- NOTE | 2020-01-11 14:59 | NUR ---
MD BUSH MADE AWARE THAT THIS HOSPITAL DOES NOT SUPPLY NITRO SUPPOSITORY. NO ORDERS RECEIVED.
--- NOTE | 2020-01-11 16:25 | NUR ---
PATIENT UP AMBULATING AROUND ROOM WITH FWW. THIS RN ATTEMPTING TO ADDRESS CONCERNS. WILL CONTINUE TO MONITOR.
[2020-01-11 16:30] VITALS: BP 112/71
[2020-01-11] MEDS: Ensure Enlive Strawberry 8oz Bottle PO SCH (18:00)
--- NOTE | 2020-01-11 18:02 | NUR ---
ATTEMPT TO UPDATE FAMILY: VOICEMAIL LEFT FOR SISTER KIZZY REQUESTING TO CONTACT HOSPITAL FOR PATIENT UPDATE. NEXT OPTION SEEMA CONTACT AND ANSWERED CALL. THIS RN ATTEMPTING TO EDUCATE ON PLAN OF CARE IN REGARDS TO DR. BUSH'S PLAN AND INPUT FROM MD REBOLLAR. [facility]EMA NOT COMPREHENDING POC AT THIS TIME. SEEMA STATES, "IF YOU GUYS DON'T DO ANYTHING ABOUT HER, SHE IS GOING TO GO HOME AND ." THIS RN CONTINUED TO ATTEMPT TO ADDRESS CONCERNS AND TRY TO FIND SOURCE OF SUCH ANGER/ANXIETY, HOWEVER WAS UNSUCCESSFUL, PATIENT'S ENDED THE CALL WITHOUT RESOLUTION.
--- NOTE | 2020-01-11 19:09 | NUR ---
CARE ENDORSED TO NOC RN.
--- NOTE | 2020-01-11 19:45 | NUR ---
PATIENT AWAKE, ALERT AND ORIENTED X4, AMBULATING ROOM WITH WALKER. PARDO DRAINING TO GRAVITY NO KINKS OR OCCLUSION NOTED. CLEAR YELLOW URINE DRAINING TO URINE BAG. REVIEWED POC. CONTINUE PATIENT CARE.
[2020-01-11 21:44] VITALS: BP 101/72
--- NOTE | 2020-01-11 22:25 | NUR ---
PAGED DR. BUSH REGARDING VERIFICATION OF MEDICATION, PATIENT REQUESTED COPAXONE SHOT, COLACE AND AMITIZA. AWAITING CALLBACK.
--- NOTE | 2020-01-11 22:57 | NUR ---
REPAGED DR. BUSH. AWAITING CALLBACK.
--- NOTE | 2020-01-12 00:11 | NUR ---
REPAGED DR. BUSH. PATIENT ALSO ASKING ABOUT OXYBUTYNIN.
--- NOTE | 2020-01-12 02:37 | NUR ---
PATIENT RESTING ON BED WITH EYES CLOSED, NO RESPIRATORY DISTRESS NOTED. FALL PRECAUTIONS MAINTAINED.
[2020-01-12] MEDS: ceFAZolin 1GM/50ML 50 ML IV SCH ×3 (05:02→20:38)
[2020-01-12 05:27] VITALS: BP 123/73
[2020-01-12] MEDS: carBAMazepine 200 MG TAB PO SCH ×3 (06:00→22:32)
[2020-01-12] MEDS: metroNIDAZOLE 500MG/100ML 100 ML IV SCH ×3 (06:11→22:36)
[2020-01-12] MEDS: D5W/SOD CHL 0.45%/KCL 20MEQ 1,000 ML IV SCH ×4 (06:12→22:39)
[2020-01-12] MEDS: COPAXONE 40 MG/ML SC SCH (06:55)
[2020-01-12] MEDS ORDERED: CARB200T4 PO (07:10)
--- NOTE | 2020-01-12 07:30 | NUR ---
Opening Shift Note Assumed care of patient, awake and alert. No S/S of distress/SOB. Pain management options discussed with patient. Instructed on POC and to call for assist PRN, will continue to monitor for changes Q1hr and PRN.
[2020-01-12 08:00] VITALS: BP 127/82
[2020-01-12 08:55] VITALS: BP 127/82
[2020-01-12] MEDS: NICOTINE 14 MG/24HR TOPICAL PATCH TD SCH (10:00)
[2020-01-12] MEDS: PREGABALIN CAPSULE 75 MG CAP PO SCH ×2 (11:02→22:32)
[2020-01-12] MEDS: clonazePAM 0.5 MG TAB PO SCH ×2 (11:02→22:31)
[2020-01-12] MEDS: Ensure Enlive Strawberry 8oz Bottle PO SCH ×2 (11:02→18:17)
[2020-01-12] MEDS: levETIRAcetam 500 MG TAB PO SCH ×2 (11:02→22:31)
[2020-01-12] MEDS: MORPHINE SULF 30 mg ER tab PO SCH (11:03)
[2020-01-12] MEDS: PANTOPRAZOLE 40 MG TAB PO SCH ×2 (11:03→22:32)
[2020-01-12] MEDS: SERTRALINE HCL 50 MG TAB PO SCH (11:03)
[2020-01-12] MEDS ORDERED: GASTROGRAFIN 30 ML SOL ONE (11:30)
--- NOTE | 2020-01-12 11:40 | NUR ---
Nutrition Assessment Notes Please refer to link for full assessment notes. Est Energy needs: 8708-7237 kcals (30-35 kcal/kgBW) d/t pt with MS Est Protein needs: 55-82 gms/day (1.0-1.5 gm/kgBW) Will continue to monitor and reassess prn. Addendum: 01/12/20 at [address] Amended: Links added.
[2020-01-12 12:55] VITALS: BP 126/68
[2020-01-12 17:00] VITALS: BP 104/60
[2020-01-12] MEDS: MORPHINE SULFATE 10 MG/5 ML ORAL SOLN PO PRN (18:43)
--- NOTE | 2020-01-12 18:45 | NUR ---
Iv dressing changed.
[2020-01-12 22:00] VITALS: BP 95/57
[2020-01-12] MEDS ORDERED: FLEET ENEMA(ADULT) 135 ML PR ONE (22:00)
--- NOTE | 2020-01-12 22:30 | NUR ---
Communicated with Dr. Wilson of patient requesting colace, lactose, amitiza or enema due patient feeling constipated. Dr Wilson provided new order of one time dose of fleet enema. confirmed order with dr wilson. will carry out.
--- NOTE | 2020-01-12 23:00 | NUR ---
After fleet enema, patient has had multiple loose BM's. Will continue to monitor patient.
[2020-01-13] MEDS: ceFAZolin 1GM/50ML 50 ML IV SCH ×3 (04:25→22:50)
[2020-01-13 05:00] VITALS: BP 113/61
[2020-01-13] MEDS: metroNIDAZOLE 500MG/100ML 100 ML IV SCH ×2 (05:43→15:29)
[2020-01-13 08:00] VITALS: BP 122/70
[2020-01-13] MEDS: Ensure Enlive Strawberry 8oz Bottle PO SCH ×2 (08:00→18:15)
[2020-01-13 09:00] VITALS: BP 122/70
[2020-01-13] MEDS: levETIRAcetam 500 MG TAB PO SCH ×2 (09:39→22:51)
[2020-01-13] MEDS: PREGABALIN CAPSULE 75 MG CAP PO SCH ×2 (09:39→22:55)
[2020-01-13] MEDS: clonazePAM 0.5 MG TAB PO SCH ×2 (09:39→22:51)
[2020-01-13] MEDS: carBAMazepine 200 MG TAB PO SCH ×2 (09:40→22:52)
[2020-01-13] MEDS: PANTOPRAZOLE 40 MG TAB PO SCH ×2 (09:40→22:55)
[2020-01-13] MEDS: MORPHINE SULFATE 10 MG/5 ML ORAL SOLN PO PRN ×3 (09:40→22:52)
[2020-01-13] MEDS: SERTRALINE HCL 50 MG TAB PO SCH (09:40)
[2020-01-13] MEDS: COPAXONE 40 MG/ML SC SCH (09:41)
[2020-01-13] MEDS: NICOTINE 14 MG/24HR TOPICAL PATCH TD SCH (09:42)
[2020-01-13] MEDS: D5W/SOD CHL 0.45%/KCL 20MEQ 1,000 ML IV SCH ×2 (11:32→19:45)
[2020-01-13 13:00] VITALS: BP_SYST 103; BP_SYST 121; BP_DIAS 66; BP_DIAS 72
[2020-01-13 17:00] VITALS: BP 117/74
--- NOTE | 2020-01-13 19:25 | NUR ---
Opening Shift Note Assumed care of patient, awake and alert. No S/S of distress/SOB or pain. Patient aware ordered pain medication not due at this time, patient verbalized understanding. Bed in lowest locked position, side rails up x2, call light within reach. Seizure precautions in place. Instructed on POC and to call for assist PRN, will continue to monitor for changes Q1hr and PRN.
[2020-01-13 22:00] VITALS: BP 100/67
[2020-01-14] MEDS: metroNIDAZOLE 500MG/100ML 100 ML IV SCH ×3 (00:57→14:14)
--- NOTE | 2020-01-14 01:00 | NUR ---
Patient informed this RN that she takes Colace, Lactulose, and Amitiza at home to help wither her constipation. This RN offered to page Dr. Wilson to request ordering aforementioned medications after confirming medications and dosages are listed in patient's home medication list in chart. Patient refusing to have this RN page Dr. Wilson at this time stating, "I don't want to bug him. He's probably at home asleep." Will endorse patient request and continue patient care.
[2020-01-14] MEDS: D5W/SOD CHL 0.45%/KCL 20MEQ 1,000 ML IV SCH ×3 (04:05→20:41)
[2020-01-14] MEDS: ceFAZolin 1GM/50ML 50 ML IV SCH ×3 (04:43→20:41)
--- NOTE | 2020-01-14 04:59 | NUR ---
Patient reporting 10/10 generalized body pain from her MS. Ordered Morphine not available on floor at this time. Dr. Wilson paged, awaiting call back at this time.
[2020-01-14 05:00] VITALS: BP 129/81
--- NOTE | 2020-01-14 06:00 | NUR ---
No return call from Dr. Wilson at this time. Patient lying in bed, eyes closed, respirations even and unlabored, appears asleep. No s/s of distress. Will continue to monitor.
--- NOTE | 2020-01-14 06:59 | NUR ---
Closing Note Patient lying in bed, eyes closed, respirations even and unlabored, appears asleep. No S/S of distress/SOB or pain. Bed in lowest locked position, side rails up x2, call light within reach. Will endorse care to dayshift RN.
--- NOTE | 2020-01-14 07:40 | NUR ---
Opening shift note Assumed car of patient from NOC KIESHA clemons. Patient is AOX4 no s/s of distress noted. Bed is in lowest locked position, side rails up x2, and call light is within reach. Updated patient on plan of care, and patine verbalized understanding. Will continue to monitor q1hr and PRN.
[2020-01-14 08:37] VITALS: BP 124/77
[2020-01-14] MEDS: NICOTINE 14 MG/24HR TOPICAL PATCH TD SCH (11:05)
[2020-01-14] MEDS: HYDROmorphone HCL 2 MG/ML VL IV PRN ×3 (11:05→20:42)
[2020-01-14] MEDS: SERTRALINE HCL 50 MG TAB PO SCH (11:06)
[2020-01-14] MEDS: levETIRAcetam 500 MG TAB PO SCH (11:06)
[2020-01-14] MEDS: PANTOPRAZOLE 40 MG TAB PO SCH (11:08)
[2020-01-14] MEDS: clonazePAM 0.5 MG TAB PO SCH (11:09)
[2020-01-14] MEDS: carBAMazepine 200 MG TAB PO SCH (11:09)
[2020-01-14] MEDS: PREGABALIN CAPSULE 75 MG CAP PO SCH (11:10)
[2020-01-14] MEDS: Ensure Enlive Strawberry 8oz Bottle PO SCH ×2 (11:10→18:34)
--- NOTE | 2020-01-14 11:15 | NUR ---
Physician rounding Dr. Wilson at bedside, updated MD on patient status.New orders received, will continue to monitor.
[2020-01-14 13:25] VITALS: BP 104/67
[2020-01-14] MEDS ORDERED: MORPHINE SULF 30 mg ER tab PO PRN (13:30)
[2020-01-14] MEDS ORDERED: MORPHINE SULFATE 10 MG/5 ML ORAL SOLN PO PRN (13:45)
[2020-01-14] MEDS: HYOSCYAMINE SULF 0.125 MG ODT TAB PO SCH ×2 (14:14→17:55)
[2020-01-14 14:57] LABS: Basophils # (auto) 0.1 10 ^3/uL (0-0.2); Basophils % (auto) 2.1 % (0.0-2.0); Eosinophils # (auto) 0.2 10 ^3/uL (0-0.8); Eosinophils % (auto) 4.2 % (0.0-7.0); Hemoglobin 13.5 g/dL (12.2-16.2); Lymphocytes % (auto) 26.2 % (10.0-50.0); Mean Corpuscular Hemoglobin 32.6 pg (28.0-32.0); Mean Corpuscular Hgb Conc. 33.7 g/dL (32.0-36.0); Mean Corpuscular Volume 96.8 fL (80.0-100.0); Monocytes # (auto) 0.4 10 ^3/uL (0-1.3); Monocytes % (auto) 11.9 % (0.0-12.0); Neutrophils # (auto) 2.1 10 ^3/uL (1.6-8.6); Neutrophils % (auto) 55.6 % (37.0-80.0); Nucleated Red Blood Cells % 0.1 %; Platelet Count (auto) 169 10^3/uL (140-450); Red Blood Cells 4.13 10^6/uL (4.0-5.20); Red Cell Distribution Width 12.1 % (11.8-14.3); White Blood Cell 3.7 10^3/uL (4.4-10.8)
[2020-01-14 15:12] LABS: Albumin 3.2 g/dL (3.4-5.0); Potassium 4.3 mmol/L (3.5-5.1)
[2020-01-14 15:15] LABS: BUN/Creatinine Ratio 14.6; Bilirubin, Total 0.2 mg/dL (0.2-1.0); Total Protein 6.4 g/dL (6.4-8.2)
--- NOTE | 2020-01-14 16:15 | NUR ---
IV removal IV on right hand and IV on right forearm DC'd with clean sterile technique, catheters fully intact. Pressure dressings applied to site. Patient tolerated well.
--- NOTE | 2020-01-14 16:25 | NUR ---
IV insertion IV access obtained, via clean sterile technique by inserting 22 gauge catheter at left forearm after 1 attempt. IV secured properly. No trauma to site. Patient
[2020-01-14 17:00] VITALS: BP 99/61
--- NOTE | 2020-01-14 19:20 | NUR ---
Opening Shift Note Assumed care of patient, awake and alert. No S/S of distress/SOB or pain. Bed in lowest locked position, side rails up x2, call light within reach. Seizure precautions in place. Instructed on POC and to call for assist PRN, will continue to monitor for changes Q1hr and PRN.
--- NOTE | 2020-01-14 19:23 | NUR ---
End of shift note Endorsed care of patient to NOC RN Michelle. No s/s of distress noted.
[2020-01-14 21:30] VITALS: BP 104/66
[2020-01-15] MEDS: metroNIDAZOLE 500MG/100ML 100 ML IV SCH ×4 (00:07→22:33)
[2020-01-15] MEDS: AMITIZA 24MCG PO SCH ×4 (00:08→22:34)
[2020-01-15] MEDS: DOCUSATE SOD 100 MG CAP PO SCH ×3 (00:08→22:34)
[2020-01-15] MEDS: levETIRAcetam 500 MG TAB PO SCH ×3 (00:08→22:34)
[2020-01-15] MEDS: PANTOPRAZOLE 40 MG TAB PO SCH ×3 (00:09→22:35)
[2020-01-15] MEDS: PREGABALIN CAPSULE 75 MG CAP PO SCH ×3 (00:09→22:35)
[2020-01-15] MEDS: clonazePAM 0.5 MG TAB PO SCH ×3 (00:09→22:35)
[2020-01-15] MEDS: carBAMazepine 200 MG TAB PO SCH ×3 (00:10→22:36)
[2020-01-15] MEDS: HYOSCYAMINE SULF 0.125 MG ODT TAB PO SCH ×4 (00:10→17:46)
[2020-01-15] MEDS: HYDROmorphone HCL 2 MG/ML VL IV PRN ×5 (00:59→18:58)
[2020-01-15] MEDS: D5W/SOD CHL 0.45%/KCL 20MEQ 1,000 ML IV SCH ×3 (04:54→22:37)
[2020-01-15] MEDS: ceFAZolin 1GM/50ML 50 ML IV SCH ×3 (04:54→20:54)
[2020-01-15 05:00] VITALS: BP 124/70
--- NOTE | 2020-01-15 07:25 | NUR ---
Opening shift note Assumed care of patient from NOC RN Michelle. Patient is AOx4, no s/s of distress noted. Bed is in lowest locked position, call light is within reach and side rails are up x2. Updated patient on plan of care and patient verbalized understanding. Will continue to monitor q1hr and PRN.
[2020-01-15 09:00] VITALS: BP 105/69
[2020-01-15] MEDS: NICOTINE 14 MG/24HR TOPICAL PATCH TD SCH (10:58)
[2020-01-15] MEDS: SERTRALINE HCL 50 MG TAB PO SCH (10:59)
[2020-01-15] MEDS: Ensure Enlive Strawberry 8oz Bottle PO SCH ×2 (11:00→18:15)
--- NOTE | 2020-01-15 11:57 | NUR ---
Nutrition Followup Notes Wt: 54.6 kg Pt sleeping with no family by bedside. per records pt with chronic constipation and possible to have sx. pt is currently on fine chop diet with fair PO of avg 65 % x 5 per RN doc Est Energy needs: 3701-7718 kcals (30-35 kcal/kgBW) d/t pt with MS, Est Protein needs: 55-82 gms/day (1.0-1.5 gm/kgBW). Will continue to monitor and reassess prn. Labs: CA 8.0 L, ALB 3.2 L. BM: Pt had 2 BM yesterday per RN doc. Skin: BS 18 mod risk, full details in small animal caretaker doc. PES: Altered GI function aeb pt with gastritis, limited ability to digest certain foods r/t pt current medical condition Comments Will continue to closely monitor pertinent labs, PO intake and skin status prn. Will followup in 3-5 days 1) Continue to closely monitor pt PO intake to meet at least 75% of meals. 2) Continue current plan of care
[2020-01-15 13:00] VITALS: BP 151/76
[2020-01-15 17:00] VITALS: BP 127/75
--- NOTE | 2020-01-15 19:15 | NUR ---
End of shift note Endorsed care to NOC KIESHA Worthington, no s/s of distress noted.
[2020-01-15 22:00] VITALS: BP 103/61
[2020-01-16] MEDS: HYOSCYAMINE SULF 0.125 MG ODT TAB PO SCH ×4 (00:09→18:08)
--- NOTE | 2020-01-16 01:00 | NUR ---
pt stating that she needs someone to help her use the bathroom, states "they used their finger the last time." pt redirected to try to let gravity work, reassured that if ther was no BM that MD would be notified.
--- NOTE | 2020-01-16 01:40 | NUR ---
Pt has small loose stool, jarad care given.
--- NOTE | 2020-01-16 01:47 | NUR ---
pt assisted to bathroom per swapnil, to wash her hands after this insurance underwriter sales wiped her d/t pt stating she needed help to wipe herself. Pt reassured that her jarad area was clean.
[2020-01-16] MEDS: ceFAZolin 1GM/50ML 50 ML IV SCH ×2 (04:10→11:12)
[2020-01-16 05:59] VITALS: BP 132/78
[2020-01-16] MEDS: metroNIDAZOLE 500MG/100ML 100 ML IV SCH ×2 (06:07→13:54)
--- NOTE | 2020-01-16 07:45 | NUR ---
Opening Shift Note Assumed care of patient, awake and alert. No S/S of distress/SOB or pain. Instructed on POC and to call for assist PRN, will continue to monitor for changes Q1hr and PRN. Bed locked in lowest position with two side rails up and call light in reach.
[2020-01-16 09:00] VITALS: BP 146/90
[2020-01-16] MEDS: AMITIZA 24MCG PO SCH (10:00)
[2020-01-16] MEDS: HYDROmorphone HCL 2 MG/ML VL IV PRN ×3 (10:02→19:54)
[2020-01-16] MEDS: SERTRALINE HCL 50 MG TAB PO SCH (10:03)
[2020-01-16] MEDS: levETIRAcetam 500 MG TAB PO SCH ×2 (10:03→22:07)
[2020-01-16] MEDS: DOCUSATE SOD 100 MG CAP PO SCH ×2 (10:03→22:00)
[2020-01-16] MEDS: PANTOPRAZOLE 40 MG TAB PO SCH ×2 (10:03→22:07)
[2020-01-16] MEDS: PREGABALIN CAPSULE 75 MG CAP PO SCH ×2 (10:04→22:11)
[2020-01-16] MEDS: clonazePAM 0.5 MG TAB PO SCH ×2 (10:04→22:07)
[2020-01-16] MEDS: carBAMazepine 200 MG TAB PO SCH ×2 (10:04→22:07)
[2020-01-16] MEDS: NICOTINE 14 MG/24HR TOPICAL PATCH TD SCH (10:05)
[2020-01-16] MEDS: D5W/SOD CHL 0.45%/KCL 20MEQ 1,000 ML IV SCH (10:07)
[2020-01-16] MEDS: Ensure Enlive Strawberry 8oz Bottle PO SCH ×2 (10:07→18:08)
[2020-01-16] MEDS: COPAXONE 40 MG/ML SC SCH (11:11)
[2020-01-16 13:00] VITALS: BP 116/45
[2020-01-16] MEDS ORDERED: FLEET ENEMA(ADULT) 135 ML PR ONE ×2 (15:00→17:00)
--- NOTE | 2020-01-16 16:00 | NUR ---
FAMILY SPOKE TO MEHDI AT EXTENSIVELY. HE HAS MANY CONCERNS ABOUT PATIENT'S SPIRITS AND THE PLAN TO TRANSFER PATIENT TO [facility]. BOTH PATIENT AND FAMILY DO NOT BELIEVE IMAGING RESULTS OR WHAT OUR SURGEON AND WELL LOGGING CAPTAIN HAVE TO SAY. HE STATES "I DON'T WANT TO TRANSFER HER OVER THERE JUST FOR THEM TO CUT HER UP AND TORTURE HER." EDUCATED HIM ON THE REASON FOR A POSSIBLE TRANSFER TO HIGHER LEVEL OF CARE FOR A PROCEDURE AND THAT WE CANNOT SAY WHAT THE ACCEPTING FACILITY'S INTERVENTIONS WILL BE. ALSO HAD QUESTIONS REGARDING CONSENT TO TRANSFER. EXPLAINED TO HIM THAT PATIENT WILL BE GIVEN THE OPPORTUNITY TO CONEST OR REFUSE TRANSFER. HE VERBALIZED UNDERSTANDING.
--- NOTE | 2020-01-16 16:12 | NUR ---
1610 01/16/20 - Faxed to [facility] transfer center at [phone] the following face sheet, order for transfer to Dr Conde, H/P, labs, meds, progress notes, consults. Pending review and bed assignment.
--- NOTE | 2020-01-16 16:55 | NUR ---
assessment Patient is a 64 year old female who is alert and oriented. Prior to admission patient lived home alone and functioned with assistance from her daily caregiver. Per patients Wilton Loja [phone] he comes and helps and checks on patient often. Patients PCP is Dr. Wilson. Patient has a fww, and an electric wheelchair and transport chair for home use. Patient informed me patient has a house keeper. Patient has good family support. Patient has been admitted for colitis. Per Wilton patient has been having problems with her colon for the past 10 years. Patients has a ss consult for transfer to higher level of care. Patient and Wilton agree to transfer. Patient does not have a POA or an advanced directive. I have offered patient and Wilton information on POA and advanced directives. Patient verbalized understanding and agreed to discharge plan. Addendum: 01/16/20 at 1659 by Erlinda VALENTINE Amended: Links added.
[2020-01-16 17:00] VITALS: BP 115/71
[2020-01-16 22:00] VITALS: BP 109/70
[2020-01-16] MEDS: AMITIZA 24 MCG PO SCH (22:00)
[2020-01-17] MEDS: D5W/SOD CHL 0.45%/KCL 20MEQ 1,000 ML IV SCH ×4 (00:33→22:49)
[2020-01-17] MEDS: HYOSCYAMINE SULF 0.125 MG ODT TAB PO SCH ×5 (00:35→22:49)
[2020-01-17 05:00] VITALS: BP 112/73
[2020-01-17] MEDS: Ensure Enlive Strawberry 8oz Bottle PO SCH ×2 (08:00→18:18)
[2020-01-17 09:00] VITALS: BP 143/72
[2020-01-17] MEDS: levETIRAcetam 500 MG TAB PO SCH ×2 (09:30→21:09)
[2020-01-17] MEDS: DOCUSATE SOD 100 MG CAP PO SCH ×2 (09:31→21:09)
[2020-01-17] MEDS: PREGABALIN CAPSULE 75 MG CAP PO SCH ×2 (09:31→21:09)
[2020-01-17] MEDS: carBAMazepine 200 MG TAB PO SCH ×2 (09:31→21:10)
[2020-01-17] MEDS: SERTRALINE HCL 50 MG TAB PO SCH (09:31)
[2020-01-17] MEDS: clonazePAM 0.5 MG TAB PO SCH ×2 (09:31→21:09)
[2020-01-17] MEDS: PANTOPRAZOLE 40 MG TAB PO SCH ×2 (09:31→21:10)
[2020-01-17] MEDS: HYDROmorphone HCL 2 MG/ML VL IV PRN ×2 (09:32→21:10)
[2020-01-17] MEDS: NICOTINE 14 MG/24HR TOPICAL PATCH TD SCH (09:35)
[2020-01-17 13:00] VITALS: BP 105/67
[2020-01-17] MEDS ORDERED: FLEET MINERAL OIL ENEMA 133 ML PR ONE (13:30)
[2020-01-17] MEDS ORDERED: LACTULOSE 20Gm/30ML SOLN PO ONE (13:30)
--- NOTE | 2020-01-17 14:35 | NUR ---
1150 01/17/20 - Contacted by [facility] transfer center coordinator who stated Dr Conde has been gone for 6 months. Request pending review and bed assignment.
[2020-01-17 17:00] VITALS: BP 131/83
--- NOTE | 2020-01-17 18:15 | NUR ---
REQUESTED IN HOUSE COVID TEST FROM LAB.
--- NOTE | 2020-01-17 19:00 | NUR ---
Opening Note Assumed care of patient, awake and alert. No S/S of distress/SOB, patient complained of abdominal pain. Patient had lactulose and an enema earlier today. Instructed on POC and to call for assist PRN, will continue to monitor.
--- NOTE | 2020-01-17 19:13 | NUR ---
ENDORSED CARE TO NIGHT KIESHA GARCÍA, AWAITING COVID IN HOUSE TEST FROM LAB.
--- NOTE | 2020-01-17 20:08 | NUR ---
Patient up on the bedside commode, passing gas. Patient is very upset with the idea of getting transferred, she is very worry about not being able to afford all medical expenses.
[2020-01-17] MEDS: AMITIZA 24 MCG PO SCH (21:09)
[2020-01-18] MEDS: HYDROmorphone HCL 2 MG/ML VL IV PRN ×4 (02:37→18:15)
[2020-01-18 05:29] VITALS: BP 100/59
[2020-01-18] MEDS: HYOSCYAMINE SULF 0.125 MG ODT TAB PO SCH ×3 (05:55→17:59)
--- NOTE | 2020-01-18 07:30 | NUR ---
RECEIVED REPORT FROM NIGHT NURSE. PATIENT RESTING IN BED, NO DISTRESS NOTED. WILL CONTINUE TO MONITOR.
[2020-01-18] MEDS: clonazePAM 0.5 MG TAB PO SCH ×2 (09:30→21:57)
[2020-01-18] MEDS: carBAMazepine 200 MG TAB PO SCH ×2 (09:30→21:59)
[2020-01-18] MEDS: DOCUSATE SOD 100 MG CAP PO SCH ×2 (09:30→21:56)
[2020-01-18] MEDS: levETIRAcetam 500 MG TAB PO SCH ×2 (09:30→21:57)
[2020-01-18] MEDS: PANTOPRAZOLE 40 MG TAB PO SCH ×2 (09:30→21:58)
[2020-01-18] MEDS: PREGABALIN CAPSULE 75 MG CAP PO SCH ×2 (09:30→21:57)
[2020-01-18] MEDS: SERTRALINE HCL 50 MG TAB PO SCH (09:31)
[2020-01-18] MEDS: NICOTINE 14 MG/24HR TOPICAL PATCH TD SCH (09:32)
[2020-01-18] MEDS: D5W/SOD CHL 0.45%/KCL 20MEQ 1,000 ML IV SCH ×2 (09:33→17:59)
[2020-01-18] MEDS: COPAXONE 40 MG/ML SC SCH (09:33)
[2020-01-18] MEDS: Ensure Enlive Strawberry 8oz Bottle PO SCH ×2 (09:34→18:15)
--- NOTE | 2020-01-18 12:56 | NUR ---
COVID SWAB COLLECTED AND WALKED TO LAB.
[2020-01-18 13:00] VITALS: BP 98/60
--- NOTE | 2020-01-18 16:32 | NUR ---
Nutrition Followup Notes Wt: 54.4 kg Pt was awake with no family by bedside. Pt is currently on fine chop diet with good PO intake ave of 92% over 3 meals. Pt with no distress. Will continue to monitor PO status, skin status, pertinent labs and weight trends. Will f/u in 3-5 days. Est Energy needs: 6119-5971 kcals (30-35 kcal/kgBW) d/t pt with MS, Est Protein needs: 55-82 gms/day (1.0-1.5 gm/kgBW). Will continue to monitor and reassess prn. Labs: CA 8.0 L, ALB 3.2 L. BM: Pt had 2 BM on 01/17 per RN doc. Skin: BS 18 mod risk, full details in rn transitional care doc. PES: Altered GI function aeb pt with gastritis, limited ability to digest certain foods r/t pt current medical condition Comments Will continue to closely monitor pertinent labs, PO intake and skin status prn. Will followup in 3-5 days 1) Continue to closely monitor pt PO intake to meet at least 75% of meals. 2) Continue current plan of care
[2020-01-18 17:00] VITALS: BP 123/66
[2020-01-18] MEDS: AMITIZA 24 MCG PO SCH (21:55)
[2020-01-18 22:07] VITALS: BP 113/67
[2020-01-19] MEDS: D5W/SOD CHL 0.45%/KCL 20MEQ 1,000 ML IV SCH ×3 (02:08→17:54)
[2020-01-19] MEDS: HYOSCYAMINE SULF 0.125 MG ODT TAB PO SCH ×5 (02:08→23:05)
[2020-01-19] MEDS: HYDROmorphone HCL 2 MG/ML VL IV PRN ×5 (05:27→22:29)
[2020-01-19 05:47] VITALS: BP 96/67
--- NOTE | 2020-01-19 05:55 | NUR ---
IV insertion IV access obtained, via clean sterile technique by inserting 18 gauge catheter at right forearm after 1 attempt. IV secured properly. No trauma to site. Patient tolerated well. NOTE: IV removal IV DC'd with clean sterile technique, catheter fully intact. Pressure dressing applied to site. Patient tolerated well. NOTE: D/C IV from left forearm
[2020-01-19] MEDS: Ensure Enlive Strawberry 8oz Bottle PO SCH ×2 (08:00→18:07)
[2020-01-19 09:02] VITALS: BP 97/66
[2020-01-19] MEDS: PREGABALIN CAPSULE 75 MG CAP PO SCH ×2 (10:22→21:14)
[2020-01-19] MEDS: levETIRAcetam 500 MG TAB PO SCH ×2 (10:22→21:14)
[2020-01-19] MEDS: DOCUSATE SOD 100 MG CAP PO SCH ×2 (10:22→21:16)
[2020-01-19] MEDS: PANTOPRAZOLE 40 MG TAB PO SCH ×2 (10:22→21:12)
[2020-01-19] MEDS: carBAMazepine 200 MG TAB PO SCH ×2 (10:22→21:12)
[2020-01-19] MEDS: SERTRALINE HCL 50 MG TAB PO SCH (10:22)
[2020-01-19] MEDS: clonazePAM 0.5 MG TAB PO SCH ×2 (10:22→21:16)
[2020-01-19] MEDS: NICOTINE 14 MG/24HR TOPICAL PATCH TD SCH (10:24)
--- NOTE | 2020-01-19 11:54 | NUR ---
1145 01/19/20 - Contacted [facility] transfer center at [phone], spoke with chief transfer and pumphouse operator Collette who confirmed receiving all of faxed documents. Collette also stated that Dr Conde was no longer at [facility] she would send to colorectal specialist. Collette stated she was unclear of reason for transfer, I referred to consult per Dr Tres Sellers it was recommended patient transfer to [facility] for colorectal surgeon. Collette stated she would send to colorectal service for review and provide an update later today.
[2020-01-19 12:41] VITALS: BP 95/52
--- NOTE | 2020-01-19 13:04 | NUR ---
Left a message to Dr. Wilson re: second opinion with surgery-Dr. Ana Cristina Angel for plan/intervention because transfer to other hospitals may take longer because of COVID situation. Waiting for call back.
--- NOTE | 2020-01-19 15:04 | NUR ---
SS consult regarding home health upon discharge. Pt needing home health services upon discharge. Pt will be returning home with her family upon discharge. Contacted [facility] and faxed clinical information , ph and [phone]). Pt accepted onto service and will be seen post discharge.
[2020-01-19 16:01] VITALS: BP 95/52
[2020-01-19 16:33] VITALS: BP 113/65
--- NOTE | 2020-01-19 16:40 | NUR ---
Patient requested to de discharged tomorrow am because her won't be able to drive during nighttime and they live all the way from [place], spoke with patient's Wilton Loja and requested the same. Per Wilton he will pickler helper his tomorrow am. Left a message to Dr. Wilson about this. Waiting for orders. Will continue care.
--- NOTE | 2020-01-19 17:00 | NUR ---
Patient home medicine Colace PO and Amitiza PO received from [facility]. Will it to the patient prior to discharge tomorrow, will give reports to the overnight cashier RN.
--- NOTE | 2020-01-19 17:13 | NUR ---
Received orders from Dr. Wilson, patient may be discharged tomorrow AM 01/20/2020.
--- NOTE | 2020-01-19 18:59 | NUR ---
Colace PO and Amitiza PO medications from [facility] handed to slot shift supervisor RN
[2020-01-19] MEDS: AMITIZA 24 MCG PO SCH (21:15)
[2020-01-19 22:00] VITALS: BP 111/71
[2020-01-20] MEDS: D5W/SOD CHL 0.45%/KCL 20MEQ 1,000 ML IV SCH ×2 (01:45→10:41)
[2020-01-20] MEDS: HYDROmorphone HCL 2 MG/ML VL IV PRN ×2 (04:58→10:38)
[2020-01-20] MEDS: HYOSCYAMINE SULF 0.125 MG ODT TAB PO SCH ×2 (04:58→11:45)
[2020-01-20 05:00] VITALS: BP 132/84
--- NOTE | 2020-01-20 06:00 | NUR ---
INDWELLING CATHETER REMOVAL No indication to continue catheter. Per protocol, balderas discontinued. Explained procedure to patient, patient verbalized understanding and in agreement. Balderas dc'd with clean technique following deflation of balloon. Patient tolerated well with no complaints of pain. Will continue to monitor output.
[2020-01-20 09:00] VITALS: BP 102/70
[2020-01-20] MEDS: COPAXONE 40 MG/ML SC SCH (10:00)
[2020-01-20] MEDS: NICOTINE 14 MG/24HR TOPICAL PATCH TD SCH (10:00)
--- NOTE | 2020-01-20 10:32 | NUR ---
PT'S FAMILY MEMBER SAID HE WOULD ARRIVE AT 1100 FOR PT'S DC
[2020-01-20] MEDS: Ensure Enlive Strawberry 8oz Bottle PO SCH (10:38)
[2020-01-20] MEDS: DOCUSATE SOD 100 MG CAP PO SCH (10:38)
[2020-01-20] MEDS: clonazePAM 0.5 MG TAB PO SCH (10:39)
[2020-01-20] MEDS: levETIRAcetam 500 MG TAB PO SCH (10:39)
[2020-01-20] MEDS: SERTRALINE HCL 50 MG TAB PO SCH (10:39)
[2020-01-20] MEDS: PANTOPRAZOLE 40 MG TAB PO SCH (10:40)
[2020-01-20] MEDS: PREGABALIN CAPSULE 75 MG CAP PO SCH (10:40)
[2020-01-20] MEDS: carBAMazepine 200 MG TAB PO SCH (10:40)
--- NOTE | 2020-01-20 11:40 | NUR ---
Discharge instructions given as ordered. Encourage to follow up with PMD as instructed. All questions and concerns addressed. Patient verbalized understanding. Medication reconciliation form completed and copy given to patient. Home medications held in Pharmacy returned to patient. IV removed with catheter intact, pressure dressing applied, balderas catheter removed by night nurse. Patient taken to vehicle via wheelchair with all personal belongings, accompanied by staff and family member. No distress noted at time of departure.
== END 2020-01-20 11:40 | disposition home or self-care (01) | DRG 58 ==
LOC: CENTRAL 13:35
PROVIDERS: ADMIT Internal Medicine Cardiovascular Disease; ATTEND Internal Medicine Cardiovascular Disease
DX: G35 Multiple sclerosis (principal); J96.90 Respiratory failure, unspecified, unspecified whether with hypoxia or hypercapnia; R64 Cachexia; E78.5 Hyperlipidemia, unspecified; G40.909 Epilepsy, unspecified, not intractable, without status epilepticus; G89.4 Chronic pain syndrome; K31.84 Gastroparesis; K59.9 Functional intestinal disorder, unspecified; K58.1 Irritable bowel syndrome with constipation; K59.09 Other constipation; Z20.828 Contact with and (suspected) exposure to other viral communicable diseases; M79.7 Fibromyalgia; Z79.891 Long term (current) use of opiate analgesic; Z82.49 Family history of ischemic heart disease and other diseases of the circulatory system; Z82.5 Family history of asthma and other chronic lower respiratory diseases; Z87.891 Personal history of nicotine dependence; Z90.49 Acquired absence of other specified parts of digestive tract
CPT/HCPCS: 36415; 71045; 72193; 74018; 74176; 80053; 82542; 85025; 85610; 85730; 86850; 86900; 86901; 87081; 87086; G0378; J0690; J3490

== ENCOUNTER 2022-03-11 20:54 | Inpatient (IN) | payer BC ==
[~2022-03-11] VITALS: Ht 157.5 cm; Wt 63.7 kg
[~2022-03-11 20:54] MED LIST changes: -CARB200T PO; +CARB200T4 PO; +DOCU100T15 PO; -GLAT20KI SC; +GLAT40IN SC; +HYOS0.1293 PO; +LACT10SO59 PO; -LEVE500T22 PO; +LEVE500T32 PO; -METH10TA97 PO; -MORP1CAP31 PO; +MORP30TA PO; -OXYB5TAB24 PO; +OXYB5TAB61 PO; +PANT-62 PO; -PANT40T; -PREG200C19 PO; -SERT100T PO; +SERT25TA14 PO; +[UNRECOGNIZED DRUG - CODE] PO
[2022-03-11 22:13] LABS: Basophils # (auto) 0.1 10 ^3/uL (0-0.2); Basophils % (auto) 0.4 % (0.0-2.0); Eosinophils # (auto) 0.1 10 ^3/uL (0-0.8); Eosinophils % (auto) 0.6 % (0.0-7.0); Hemoglobin 12.7 g/dL (12.2-16.2); Lymphocytes # (auto) 0.8 10 ^3/uL (0.4-5.4); Lymphocytes % (auto) 5.3 % (10.0-50.0); Mean Corpuscular Hemoglobin 30.7 pg (28.0-32.0); Mean Corpuscular Hgb Conc. 33.5 g/dL (32.0-36.0); Mean Corpuscular Volume 91.5 fL (80.0-100.0); Monocytes % (auto) 6.5 % (0.0-12.0); Neutrophils # (auto) 13.7 10 ^3/uL (1.6-8.6); Neutrophils % (auto) 87.2 % (37.0-80.0); Red Blood Cells 4.15 10^6/uL (4.0-5.20); Red Cell Distribution Width 12.4 % (11.8-14.3); White Blood Cell 15.7 10^3/uL (4.4-10.8)
[2022-03-11 22:45] LABS: INR 1.26 (0.9-1.15); Partial Thromboplastin Time 27.3 sec (24.6-33.4)
[2022-03-11] MEDS ORDERED: SODIUM CHLORIDE 0.9% 1,000 ML IV ONE (23:15)
[2022-03-12 01:22] LABS: Sodium 136 mmol/L (136-145)
[2022-03-12 01:24] LABS: Anion Gap 7 (5-15); Carbon Dioxide 29 mmol/L (21-32); Chloride 100 mmol/L (98-107); Glucose 118 mg/dL (74-106); Potassium 2.9 mmol/L (3.5-5.1)
[2022-03-12 01:25] LABS: Alanine Aminotransferase 21 U/L (13-56); Alkaline Phosphatase 123 U/L (45-117); Aspartate Aminotransferase 23 U/L (15-37); BUN/Creatinine Ratio 22.5; Bilirubin, Total 0.8 mg/dL (0.2-1.0); Blood Urea Nitrogen 20 mg/dL (7-18); Calcium 13.2 mg/dL (8.5-10.1); GFR African American 82 mL/min; GFR Non-African American 68 mL/min; Total Protein 6.3 g/dL (6.4-8.2)
[2022-03-12 01:26] LABS: Albumin 2.4 g/dL (3.4-5.0); Blood Alcohol < 3.0 mg/dL (0-5); Magnesium 1.6 mg/dL (1.6-2.6)
[2022-03-12] MEDS ORDERED: cefTRIAXone 1GM/50ML D5W 50 ML IV ONE (01:30)
[2022-03-12] MEDS ORDERED: FUROSEMIDE 100 MG/10ML VIAL IV ONE (02:45)
[2022-03-12] MEDS: SODIUM CHLORIDE 0.9% 1,000 ML IV SCH ×3 (04:15→23:30)
[2022-03-12] MEDS: HYDROmorphone HCL 2 MG/ML VL/or syr IV PRN (04:44)
[2022-03-12 05:20] LABS: Alcohol, Urine < 3.0 mg/dL (0-10); Amphetamine Screen, Urine NEGATIVE (NEGATIVE); Barbiturate Scree,Urine NEGATIVE (NEGATIVE); Benzodiazephine Screen, Urine NEGATIVE (NEGATIVE); Cannabinoid Screen, Urine NEGATIVE (NEGATIVE); Cocaine Screen, Urine NEGATIVE (NEGATIVE); Opiate Scree,Urine POSITIVE (NEGATIVE); Phencyclidine Screen, Urine NEGATIVE (NEGATIVE)
[2022-03-12 05:31] LABS: Urine Bacteria NONE SEEN /hpf (None Seen); Urine Blood Negative /uL (Negative); Urine Budding Yeast MODERATE /hpf (None Seen); Urine Hyaline Cast FEW /lpf (0 - 2); Urine Specific Gravity 1.015 (1.001-1.035); Urine WBC 2 /hpf (0 - 5)
[2022-03-12] MEDS: carBAMazepine 200 MG TAB PO SCH (07:55)
[2022-03-12] MEDS: PANTOPRAZOLE 40 MG/10 ML VIAL INJ IV SCH (10:09)
[2022-03-12] MEDS: levETIRAcetam 500 MG TAB PO SCH ×2 (10:09→22:26)
[2022-03-12 21:17] LABS: Basophils # (auto) 0 10 ^3/uL (0-0.2); Basophils % (auto) 0.2 % (0.0-2.0); Eosinophils # (auto) 0 10 ^3/uL (0-0.8); Eosinophils % (auto) 0.1 % (0.0-7.0); Hematocrit 38.1 % (36.0-46.0); Hemoglobin 12.9 g/dL (12.2-16.2); Lymphocytes # (auto) 0.7 10 ^3/uL (0.4-5.4); Lymphocytes % (auto) 3.9 % (10.0-50.0); Mean Corpuscular Hemoglobin 31.7 pg (28.0-32.0); Mean Corpuscular Hgb Conc. 33.9 g/dL (32.0-36.0); Mean Corpuscular Volume 93.5 fL (80.0-100.0); Monocytes # (auto) 0.9 10 ^3/uL (0-1.3); Monocytes % (auto) 5.2 % (0.0-12.0); Neutrophils # (auto) 16.3 10 ^3/uL (1.6-8.6); Neutrophils % (auto) 90.6 % (37.0-80.0); Red Blood Cells 4.08 10^6/uL (4.0-5.20); Red Cell Distribution Width 12.6 % (11.8-14.3)
[2022-03-12 21:35] LABS: Alanine Aminotransferase 21 U/L (13-56); Albumin 2.7 g/dL (3.4-5.0); Anion Gap 9 (5-15); Aspartate Aminotransferase 21 U/L (15-37); BUN/Creatinine Ratio 25.6; Blood Urea Nitrogen 21 mg/dL (7-18); Carbon Dioxide 28 mmol/L (21-32); Chloride 100 mmol/L (98-107); GFR African American 90 mL/min; GFR Non-African American 75 mL/min; Glucose 111 mg/dL (74-106); Sodium 137 mmol/L (136-145)
[2022-03-12 21:38] LABS: Alkaline Phosphatase 135 U/L (45-117); Bilirubin, Total 0.7 mg/dL (0.2-1.0)
[2022-03-12 21:44] LABS: Calcium 13.2 mg/dL (8.5-10.1); Potassium 2.5 mmol/L (3.5-5.1)
[2022-03-12] MEDS ORDERED: POTASSIUM CHL 20 Meq TABLET PO ONE (22:00)
[2022-03-13] MEDS: HYDROmorphone HCL 2 MG/ML VL/or syr IV PRN (04:14)
[2022-03-13] MEDS: cefTRIAXone 1GM/50ML D5W 50 ML IV SCH (06:10)
[2022-03-13] MEDS: carBAMazepine 200 MG TAB PO SCH (07:04)
[2022-03-13] MEDS: SODIUM CHLORIDE 0.9% 1,000 ML IV SCH ×4 (08:57→22:00)
[2022-03-13] MEDS: levETIRAcetam 500 MG TAB PO SCH ×2 (12:16→22:00)
[2022-03-13] MEDS: PANTOPRAZOLE 40 MG/10 ML VIAL INJ IV SCH (12:16)
[2022-03-13 13:00] VITALS: BP 152/82
[2022-03-13 13:37] LABS: Basophils # (auto) 0.1 10 ^3/uL (0-0.2); Basophils % (auto) 0.3 % (0.0-2.0); Eosinophils # (auto) 0.1 10 ^3/uL (0-0.8); Eosinophils % (auto) 0.4 % (0.0-7.0); Hemoglobin 13.3 g/dL (12.2-16.2); Lymphocytes # (auto) 0.7 10 ^3/uL (0.4-5.4); Lymphocytes % (auto) 3.7 % (10.0-50.0); Mean Corpuscular Hemoglobin 30.7 pg (28.0-32.0); Mean Corpuscular Hgb Conc. 33.3 g/dL (32.0-36.0); Mean Corpuscular Volume 92.2 fL (80.0-100.0); Monocytes # (auto) 0.8 10 ^3/uL (0-1.3); Monocytes % (auto) 4.1 % (0.0-12.0); Neutrophils % (auto) 91.5 % (37.0-80.0); Red Blood Cells 4.34 10^6/uL (4.0-5.20); Red Cell Distribution Width 12.5 % (11.8-14.3); White Blood Cell 18.6 10^3/uL (4.4-10.8)
[2022-03-13 13:58] LABS: Albumin 2.7 g/dL (3.4-5.0); Potassium 3.4 mmol/L (3.5-5.1)
[2022-03-13 14:01] LABS: Bilirubin, Total 0.7 mg/dL (0.2-1.0); Total Protein 6.5 g/dL (6.4-8.2)
[2022-03-13 14:10] VITALS: BP 127/73
[2022-03-13 14:26] LABS: Calcium 14.1 mg/dL (8.5-10.1)
[2022-03-13] MEDS ORDERED: VANCOMYCIN PER PHARMACY 1,000 MG IV SCH (16:00)
[2022-03-13 17:00] VITALS: BP 127/73
[2022-03-13] MEDS: VANCOMYCIN 750mg/250ml 250 ML IV SCH (17:06)
[2022-03-13] MEDS ORDERED: POTASSIUM EFFERVESENT TAB 25 MEQ PO ONE (19:00)
[2022-03-13] MEDS ORDERED: FUROSEMIDE 40 MG/4 ML VIAL IV ONE (19:00)
[2022-03-13 20:00] VITALS: BP 142/89
[2022-03-13 22:00] VITALS: BP 142/89
[2022-03-14] MEDS: HYDROmorphone HCL 2 MG/ML VL/or syr IV PRN ×2 (01:48→10:45)
[2022-03-14 05:00] VITALS: BP 146/74
[2022-03-14] MEDS: VANCOMYCIN 750mg/250ml 250 ML IV SCH ×2 (05:00→17:00)
[2022-03-14] MEDS: FUROSEMIDE 40 MG/4 ML VIAL IV SCH ×2 (06:12→18:01)
[2022-03-14] MEDS: cefTRIAXone 1GM/50ML D5W 50 ML IV SCH (06:13)
[2022-03-14] MEDS: carBAMazepine 200 MG TAB PO SCH (07:00)
[2022-03-14] MEDS: SODIUM CHLORIDE 0.9% 1,000 ML IV SCH ×4 (07:41→23:38)
[2022-03-14 08:00] VITALS: BP 137/88
[2022-03-14 09:00] VITALS: BP 141/76
[2022-03-14 10:13] LABS: BUN/Creatinine Ratio 26.9; Potassium 3.1 mmol/L (3.5-5.1)
[2022-03-14] MEDS: PANTOPRAZOLE 40 MG/10 ML VIAL INJ IV SCH (10:23)
[2022-03-14] MEDS: levETIRAcetam 500 MG TAB PO SCH ×2 (10:24→22:00)
[2022-03-14 10:40] LABS: Calcium 13.2 mg/dL (8.5-10.1)
[2022-03-14 13:00] VITALS: BP 142/84
[2022-03-14 17:00] VITALS: BP 140/72
[2022-03-15] MEDS: FUROSEMIDE 40 MG/4 ML VIAL IV SCH ×2 (05:04→17:14)
[2022-03-15] MEDS: cefTRIAXone 1GM/50ML D5W 50 ML IV SCH (05:29)
[2022-03-15] MEDS: carBAMazepine 200 MG TAB PO SCH (05:29)
[2022-03-15 08:01] LABS: BUN/Creatinine Ratio 24.4
[2022-03-15 08:19] LABS: Calcium 13.3 mg/dL (8.5-10.1); Potassium 2.8 mmol/L (3.5-5.1)
[2022-03-15] MEDS: VANCOMYCIN 750mg/250ml 250 ML IV SCH (08:42)
[2022-03-15 09:00] VITALS: BP 120/68
[2022-03-15] MEDS: PANTOPRAZOLE 40 MG/10 ML VIAL INJ IV SCH (10:15)
[2022-03-15] MEDS: POTASSIUM CHL 20MEQ/100ML 100 ML IV SCH ×4 (10:20→17:54)
[2022-03-15] MEDS ORDERED: ZOLEDRONIC ACID 4 MG in SODIUM CHL 0.9% 100 ML IV ONE (10:30)
[2022-03-15] MEDS: levETIRAcetam 500 MG TAB PO SCH ×2 (10:51→21:37)
[2022-03-15] MEDS: SODIUM CHLORIDE 0.9% 1,000 ML IV SCH ×3 (12:19→23:52)
[2022-03-15] MEDS: Ensure Enlive Strawberry 8oz Bottle PO SCH (17:55)
[2022-03-15 18:15] VITALS: BP 150/95
[2022-03-15] MEDS ORDERED: VANCOMYCIN 750mg/250ml 250 ML IV SCH (21:00)
[2022-03-15 22:00] VITALS: BP 139/82
[2022-03-16 05:00] VITALS: BP 144/83
[2022-03-16 06:16] LABS: Albumin 2.5 g/dL (3.4-5.0); BUN/Creatinine Ratio 25.3; Calcium 11.8 mg/dL (8.5-10.1); Phosphorus 2.3 mg/dL (2.5-4.90)
[2022-03-16] MEDS: FUROSEMIDE 40 MG/4 ML VIAL IV SCH ×2 (06:32→17:22)
[2022-03-16] MEDS: carBAMazepine 200 MG TAB PO SCH (06:33)
[2022-03-16] MEDS: cefTRIAXone 1GM/50ML D5W 50 ML IV SCH (06:33)
[2022-03-16] MEDS: SODIUM CHLORIDE 0.9% 1,000 ML IV SCH ×2 (06:33→17:04)
[2022-03-16 09:00] VITALS: BP 127/70
[2022-03-16] MEDS: levETIRAcetam 500 MG TAB PO SCH ×2 (09:14→21:55)
[2022-03-16] MEDS: PANTOPRAZOLE 40 MG/10 ML VIAL INJ IV SCH (09:14)
[2022-03-16] MEDS: Ensure Enlive Strawberry 8oz Bottle PO SCH ×3 (09:20→17:22)
[2022-03-16 12:38] VITALS: BP 127/69
[2022-03-16 16:48] VITALS: BP 129/89
[2022-03-16] MEDS ORDERED: RECLAST IV ONE (17:30)
[2022-03-16] MEDS ORDERED: POTASSIUM CHLORIDE 80 MEQ, LIDOCAINE 1% (LOCAL ANESTH.) 6 ML in SODIUM CHL 0.9% 500 ML IV ONE (17:45)
[2022-03-16] MEDS: ZOLEDRONIC ACID 4 MG in SODIUM CHL 0.9% 100 ML IV ONE ×2 (19:40→21:29)
[2022-03-16] MEDS ORDERED: VANCOMYCIN 750mg/250ml 250 ML IV ONE (20:00)
[2022-03-16 20:28] LABS: BUN/Creatinine Ratio 26.6; Calcium 11.2 mg/dL (8.5-10.1)
[2022-03-16 20:55] LABS: Potassium 2.1 mmol/L (3.5-5.1)
[2022-03-16 22:00] VITALS: BP 122/69
[2022-03-17] MEDS: HYDROmorphone HCL 2 MG/ML VL/or syr IV PRN ×2 (01:45→23:04)
[2022-03-17] MEDS: SODIUM CHLORIDE 0.9% 1,000 ML IV SCH ×5 (01:46→23:04)
[2022-03-17 05:00] VITALS: BP 136/67
[2022-03-17] MEDS: FUROSEMIDE 40 MG/4 ML VIAL IV SCH ×2 (06:37→18:08)
[2022-03-17] MEDS: carBAMazepine 200 MG TAB PO SCH (06:38)
[2022-03-17] MEDS: Ensure Enlive Strawberry 8oz Bottle PO SCH ×3 (08:00→18:08)
[2022-03-17 09:00] VITALS: BP 132/71
[2022-03-17] MEDS: cefTRIAXone 1GM/50ML D5W 50 ML IV SCH (09:20)
[2022-03-17] MEDS: levETIRAcetam 500 MG TAB PO SCH ×2 (09:21→22:00)
[2022-03-17] MEDS: PANTOPRAZOLE 40 MG/10 ML VIAL INJ IV SCH (09:21)
[2022-03-17 13:00] VITALS: BP 130/69
[2022-03-17 13:37] LABS: Calcium 9.4 mg/dL (8.5-10.1)
[2022-03-17 13:47] LABS: Potassium 2.5 mmol/L (3.5-5.1)
[2022-03-17] MEDS ORDERED: POTASSIUM CHL 20MEQ/100ML 100 ML IV SCH (14:15)
[2022-03-17] MEDS ORDERED: POTASSIUM CHLORIDE 80 MEQ, LIDOCAINE 1% (LOCAL ANESTH.) 6 ML in SODIUM CHL 0.9% 500 ML IV ONE (14:30)
[2022-03-17 17:00] VITALS: BP 149/78
[2022-03-17 21:45] VITALS: BP 108/65
[2022-03-17] MEDS: VANCOMYCIN 500 MG in D5W 5% 100 ML IV SCH (22:46)
[2022-03-18 04:58] VITALS: BP 146/80
[2022-03-18] MEDS: SODIUM CHLORIDE 0.9% 1,000 ML IV SCH ×3 (05:40→19:00)
[2022-03-18] MEDS: carBAMazepine 200 MG TAB PO SCH (06:12)
[2022-03-18] MEDS: FUROSEMIDE 40 MG/4 ML VIAL IV SCH (06:12)
[2022-03-18] MEDS: cefTRIAXone 1GM/50ML D5W 50 ML IV SCH (06:12)
[2022-03-18 07:14] LABS: Calcium 8.9 mg/dL (8.5-10.1)
[2022-03-18 07:16] LABS: BUN/Creatinine Ratio 28.9
[2022-03-18 08:01] LABS: Potassium 2.8 mmol/L (3.5-5.1)
[2022-03-18 09:00] VITALS: BP 140/75
[2022-03-18] MEDS: PANTOPRAZOLE 40 MG/10 ML VIAL INJ IV SCH ×2 (10:35→11:24)
[2022-03-18] MEDS: POTASSIUM CHL 20MEQ/100ML 100 ML IV SCH ×5 (10:35→19:00)
[2022-03-18] MEDS: levETIRAcetam 500 MG TAB PO SCH ×2 (10:36→22:48)
[2022-03-18] MEDS: HYDROmorphone HCL 2 MG/ML VL/or syr IV PRN ×3 (10:53→18:03)
[2022-03-18] MEDS: ENSURE CLEAR Mixed Berry 8oz Carton PO SCH ×2 (12:30→18:21)
[2022-03-18 13:00] VITALS: BP 106/66
[2022-03-18] MEDS ORDERED: TPN PER PHARMACY 0 ML IV SCH (14:00)
[2022-03-18 17:00] VITALS: BP 154/74
[2022-03-18] MEDS: ACCU-CHEK COMFORT CURVE STRIP VI SCH ×2 (17:41→23:29)
[2022-03-18] MEDS: InsuLIN REG 1unit/0.01ml Soln (100units/ml) SC SCH ×3 (17:42→23:34)
[2022-03-18] MEDS ORDERED: DEXTROSE (50%) 50ML SYRG IV SCH (18:00)
[2022-03-18 19:31] LABS: Basophils # (auto) 0.1 10 ^3/uL (0-0.2); Basophils % (auto) 0.3 % (0.0-2.0); Eosinophils # (auto) 0.1 10 ^3/uL (0-0.8); Eosinophils % (auto) 0.4 % (0.0-7.0); Hematocrit 35.3 % (36.0-46.0); Hemoglobin 11.5 g/dL (12.2-16.2); Lymphocytes # (auto) 1.1 10 ^3/uL (0.4-5.4); Lymphocytes % (auto) 5.7 % (10.0-50.0); Mean Corpuscular Hemoglobin 30.1 pg (28.0-32.0); Mean Corpuscular Hgb Conc. 32.6 g/dL (32.0-36.0); Mean Corpuscular Volume 92.2 fL (80.0-100.0); Monocytes # (auto) 0.9 10 ^3/uL (0-1.3); Monocytes % (auto) 4.9 % (0.0-12.0); Neutrophils # (auto) 16.7 10 ^3/uL (1.6-8.6); Neutrophils % (auto) 88.7 % (37.0-80.0); Red Blood Cells 3.83 10^6/uL (4.0-5.20); Red Cell Distribution Width 12.5 % (11.8-14.3); White Blood Cell 18.8 10^3/uL (4.4-10.8)
[2022-03-18 19:42] LABS: INR 1.38 (0.9-1.15); Partial Thromboplastin Time 28.2 sec (24.6-33.4)
[2022-03-18] MEDS ORDERED: CLINIMIX PER PHARMACY IV NR (20:00)
[2022-03-18 21:40] VITALS: BP 110/68
[2022-03-18] MEDS: VANCOMYCIN 500 MG in D5W 5% 100 ML IV SCH (22:48)
[2022-03-18] MEDS: TEMAZEPAM 15 MG CAP PO PRN (22:49)
[2022-03-19] MEDS: SODIUM CHLORIDE 0.9% 1,000 ML IV SCH ×4 (00:03→21:45)
[2022-03-19 04:33] VITALS: BP 125/73
[2022-03-19] MEDS: ACCU-CHEK COMFORT CURVE STRIP VI SCH ×3 (05:33→18:26)
[2022-03-19] MEDS: InsuLIN REG 1unit/0.01ml Soln (100units/ml) SC SCH ×3 (05:45→18:00)
[2022-03-19] MEDS: cefTRIAXone 1GM/50ML D5W 50 ML IV SCH (05:46)
[2022-03-19] MEDS: HYDROmorphone HCL 2 MG/ML VL/or syr IV PRN ×2 (05:49→21:44)
[2022-03-19 05:58] LABS: Magnesium 1.1 mg/dL (1.6-2.6)
[2022-03-19 06:04] LABS: Albumin 2.3 g/dL (3.4-5.0); BUN/Creatinine Ratio 27.8; Bilirubin, Total 0.4 mg/dL (0.2-1.0); Calcium 8.1 mg/dL (8.5-10.1); Total Protein 5.3 g/dL (6.4-8.2)
[2022-03-19 06:31] LABS: Potassium 2.8 mmol/L (3.5-5.1)
[2022-03-19] MEDS: carBAMazepine 200 MG TAB PO SCH (06:43)
[2022-03-19] MEDS: POTASSIUM CHL 20MEQ/100ML 100 ML IV SCH ×4 (08:00→22:52)
[2022-03-19] MEDS: ENSURE CLEAR Mixed Berry 8oz Carton PO SCH ×3 (08:48→18:25)
[2022-03-19 09:00] VITALS: BP 114/70
[2022-03-19] MEDS: MAGNESIUM SULFATE 1GM/100ML 100 ML IV SCH ×4 (09:57→16:21)
[2022-03-19] MEDS: levETIRAcetam 500 MG TAB PO SCH ×2 (10:18→21:44)
[2022-03-19] MEDS: PANTOPRAZOLE 40 MG/10 ML VIAL INJ IV SCH (10:18)
[2022-03-19] MEDS ORDERED: SODIUM PHOSP 40 MEQ in D5W 5% 250 ML IV ONE (12:00)
[2022-03-19 13:00] VITALS: BP 112/74
[2022-03-19] MEDS: GABAPENTIN 300 MG CAP PO SCH ×2 (14:09→21:44)
[2022-03-19] MEDS ORDERED: LIDOCAINE 1% (LOCAL ANESTH.) PF 5ml SDV ID ONE (18:30)
[2022-03-19] MEDS ORDERED: PPN PER PHARMACY IV NR ×20 (20:00)
[2022-03-19] MEDS: TEMAZEPAM 15 MG CAP PO PRN (21:44)
[2022-03-19] MEDS: SODIUM CHLOR 0.9% PF (SALINE LOCK) 10ML VIAL/SYR IV SCH (21:51)
[2022-03-19 22:00] VITALS: BP 134/77
[2022-03-19] MEDS: VANCOMYCIN 500 MG in D5W 5% 100 ML IV SCH (23:09)
[2022-03-20] MEDS: ACCU-CHEK COMFORT CURVE STRIP VI SCH ×4 (00:09→18:46)
[2022-03-20] MEDS: InsuLIN REG 1unit/0.01ml Soln (100units/ml) SC SCH ×4 (00:10→18:00)
[2022-03-20 05:00] VITALS: BP 114/62
[2022-03-20] MEDS: SODIUM CHLORIDE 0.9% 1,000 ML IV SCH ×2 (06:05→11:00)
[2022-03-20] MEDS: cefTRIAXone 1GM/50ML D5W 50 ML IV SCH (06:05)
[2022-03-20] MEDS: GABAPENTIN 300 MG CAP PO SCH ×3 (06:05→20:52)
[2022-03-20] MEDS: HYDROmorphone HCL 2 MG/ML VL/or syr IV PRN ×2 (06:05→20:52)
[2022-03-20 06:10] LABS: Calcium 6.7 mg/dL (8.5-10.1); Potassium 3.2 mmol/L (3.5-5.1)
[2022-03-20 06:16] LABS: BUN/Creatinine Ratio 27.6; Bilirubin, Total 0.4 mg/dL (0.2-1.0); Phosphorus 2.8 mg/dL (2.5-4.90); Total Protein 4.7 g/dL (6.4-8.2)
[2022-03-20] MEDS: carBAMazepine 200 MG TAB PO SCH (07:00)
[2022-03-20 08:30] VITALS: BP 108/46
[2022-03-20] MEDS: VANCOMYCIN 500 MG in D5W 5% 100 ML IV SCH ×2 (09:58→22:46)
[2022-03-20] MEDS: PANTOPRAZOLE 40 MG/10 ML VIAL INJ IV SCH (10:01)
[2022-03-20] MEDS: ENSURE CLEAR Mixed Berry 8oz Carton PO SCH ×3 (10:02→18:46)
[2022-03-20] MEDS: levETIRAcetam 500 MG TAB PO SCH ×2 (10:02→20:52)
[2022-03-20] MEDS: SODIUM CHLOR 0.9% PF (SALINE LOCK) 10ML VIAL/SYR IV SCH ×2 (10:02→22:51)
[2022-03-20] MEDS ORDERED: POTASSIUM CHL 20MEQ/100ML 100 ML IV ONE (10:30)
[2022-03-20 13:00] VITALS: BP 151/81
[2022-03-20 17:00] VITALS: BP 141/67
[2022-03-20] MEDS ORDERED: POTASSIUM ACETATE IV NR ×9 (20:00)
[2022-03-20] MEDS ORDERED: TPN PER PHARMACY IV NR ×10 (20:00)
[2022-03-20] MEDS ORDERED: SODIUM PHOSPHATES IV NR ×9 (20:00)
[2022-03-20] MEDS ORDERED: CALCIUM GLUC 1,000mg/50ml-NS 50 ML IV ONE (20:00)
[2022-03-20] MEDS ORDERED: FAT EMULSION IV NR ×9 (20:00)
[2022-03-20] MEDS ORDERED: [UNRECOGNIZED DRUG - OTHER] IV NR ×9 (20:00)
[2022-03-20 22:00] VITALS: BP 138/82
[2022-03-21] MEDS: HYDROmorphone HCL 2 MG/ML VL/or syr IV PRN ×2 (00:01→18:17)
[2022-03-21] MEDS: ACCU-CHEK COMFORT CURVE STRIP VI SCH ×5 (00:02→23:53)
[2022-03-21] MEDS: InsuLIN REG 1unit/0.01ml Soln (100units/ml) SC SCH ×4 (00:07→17:05)
[2022-03-21] MEDS: TEMAZEPAM 15 MG CAP PO PRN (00:15)
[2022-03-21 05:00] VITALS: BP 123/65
[2022-03-21 05:41] LABS: Calcium 6.4 mg/dL (8.5-10.1); Magnesium 1.7 mg/dL (1.6-2.6)
[2022-03-21 05:43] LABS: BUN/Creatinine Ratio 27.4
[2022-03-21 05:45] LABS: Bilirubin, Total 0.4 mg/dL (0.2-1.0); Phosphorus 2.4 mg/dL (2.5-4.90); Total Protein 4.9 g/dL (6.4-8.2)
[2022-03-21 06:00] LABS: Potassium 2.9 mmol/L (3.5-5.1)
[2022-03-21] MEDS: carBAMazepine 200 MG TAB PO SCH (06:24)
[2022-03-21] MEDS: GABAPENTIN 300 MG CAP PO SCH ×3 (06:24→22:33)
[2022-03-21] MEDS: cefTRIAXone 1GM/50ML D5W 50 ML IV SCH (06:28)
[2022-03-21] MEDS: ENSURE CLEAR Mixed Berry 8oz Carton PO SCH ×3 (07:34→17:05)
[2022-03-21 08:00] VITALS: BP 120/70
[2022-03-21 09:42] VITALS: BP 116/71
[2022-03-21] MEDS: VANCOMYCIN 750mg/250ml 250 ML IV SCH ×2 (09:59→22:36)
[2022-03-21] MEDS: PANTOPRAZOLE 40 MG/10 ML VIAL INJ IV SCH (09:59)
[2022-03-21] MEDS: levETIRAcetam 500 MG TAB PO SCH ×2 (10:00→22:33)
[2022-03-21] MEDS: SODIUM CHLOR 0.9% PF (SALINE LOCK) 10ML VIAL/SYR IV SCH ×2 (10:00→22:33)
[2022-03-21] MEDS: MAGNESIUM SULFATE 1GM/100ML 100 ML IV SCH ×2 (10:14→11:44)
[2022-03-21] MEDS: POTASSIUM CHL 20MEQ/100ML 100 ML IV SCH ×2 (10:14→12:00)
[2022-03-21] MEDS: CALCIUM GLUC 1,000mg/50ml-NS 50 ML IV SCH ×2 (10:45→11:43)
[2022-03-21 12:57] VITALS: BP 104/55
[2022-03-21] MEDS ORDERED: POTASSIUM PHOSPHATE 44 MEQ in D5W 5% 250 ML IV ONE (14:00)
[2022-03-21 16:05] VITALS: BP 123/75
[2022-03-21] MEDS ORDERED: TPN PER PHARMACY IV NR ×10 (20:00)
[2022-03-21 21:29] VITALS: BP 126/75
[2022-03-22] MEDS: InsuLIN REG 1unit/0.01ml Soln (100units/ml) SC SCH ×4 (00:04→16:41)
[2022-03-22 04:26] VITALS: BP 111/77
[2022-03-22] MEDS: HYDROmorphone HCL 2 MG/ML VL/or syr IV PRN ×4 (04:30→20:58)
[2022-03-22] MEDS: GABAPENTIN 300 MG CAP PO SCH ×3 (05:41→21:53)
[2022-03-22] MEDS: cefTRIAXone 1GM/50ML D5W 50 ML IV SCH (05:41)
[2022-03-22] MEDS: ACCU-CHEK COMFORT CURVE STRIP VI SCH ×3 (05:42→16:41)
[2022-03-22 06:02] LABS: Basophils # (auto) 0 10 ^3/uL (0-0.2); Eosinophils # (auto) 0.2 10 ^3/uL (0-0.8); Hematocrit 25.7 % (36.0-46.0); Lymphocytes # (auto) 0.7 10 ^3/uL (0.4-5.4); Lymphocytes % (auto) 4.3 % (10.0-50.0); Mean Corpuscular Hemoglobin 31.7 pg (28.0-32.0); Mean Corpuscular Volume 90.7 fL (80.0-100.0); Monocytes # (auto) 1.1 10 ^3/uL (0-1.3); Monocytes % (auto) 6.4 % (0.0-12.0); Neutrophils # (auto) 14.7 10 ^3/uL (1.6-8.6); Neutrophils % (auto) 88.3 % (37.0-80.0); Red Blood Cells 2.83 10^6/uL (4.0-5.20); Red Cell Distribution Width 12.6 % (11.8-14.3); White Blood Cell 16.6 10^3/uL (4.4-10.8)
[2022-03-22 06:30] LABS: Albumin 1.8 g/dL (3.4-5.0); BUN/Creatinine Ratio 31.1; Calcium 6.4 mg/dL (8.5-10.1); Magnesium 1.8 mg/dL (1.6-2.6); Potassium 3.7 mmol/L (3.5-5.1)
[2022-03-22 06:34] LABS: Bilirubin, Total 0.3 mg/dL (0.2-1.0); Phosphorus 3.2 mg/dL (2.5-4.90); Total Protein 4.6 g/dL (6.4-8.2)
[2022-03-22] MEDS: carBAMazepine 200 MG TAB PO SCH (07:23)
[2022-03-22] MEDS: PANTOPRAZOLE 40 MG/10 ML VIAL INJ IV SCH (08:53)
[2022-03-22] MEDS: levETIRAcetam 500 MG TAB PO SCH ×2 (08:53→21:53)
[2022-03-22] MEDS: VANCOMYCIN 750mg/250ml 250 ML IV SCH ×2 (08:55→22:44)
[2022-03-22] MEDS: ENSURE CLEAR Mixed Berry 8oz Carton PO SCH ×3 (08:55→17:14)
[2022-03-22 08:58] VITALS: BP 106/64
[2022-03-22] MEDS ORDERED: CALCIUM GLUC 1,000mg/50ml-NS 50 ML IV ONE (09:00)
[2022-03-22] MEDS: SODIUM CHLOR 0.9% PF (SALINE LOCK) 10ML VIAL/SYR IV SCH ×2 (09:30→21:54)
[2022-03-22] MEDS ORDERED: HYDROmorphone HCL 2 MG/ML VL/or syr IV PRN (10:00)
[2022-03-22] MEDS: ONDANSETRON HCL 4 MG/2 ML VIAL IV PRN (11:33)
[2022-03-22 14:05] VITALS: BP 103/55
[2022-03-22] MEDS: LORazepam 2MG/ML-1ML VIAL IV PRN (16:03)
[2022-03-22 16:50] VITALS: BP 100/51
[2022-03-22] MEDS ORDERED: TPN PER PHARMACY IV NR ×10 (20:00)
[2022-03-22 22:00] VITALS: BP 101/60
[2022-03-23 05:25] VITALS: BP 119/72
[2022-03-23] MEDS: HYDROmorphone HCL 2 MG/ML VL/or syr IV PRN ×5 (05:30→22:44)
[2022-03-23] MEDS: GABAPENTIN 300 MG CAP PO SCH ×2 (05:30→22:05)
[2022-03-23] MEDS: cefTRIAXone 1GM/50ML D5W 50 ML IV SCH (05:30)
[2022-03-23] MEDS: ACCU-CHEK COMFORT CURVE STRIP VI SCH ×5 (06:00→23:53)
[2022-03-23] MEDS: InsuLIN REG 1unit/0.01ml Soln (100units/ml) SC SCH ×5 (06:00→23:53)
[2022-03-23] MEDS: carBAMazepine 200 MG TAB PO SCH (06:41)
[2022-03-23 07:56] LABS: Albumin 1.7 g/dL (3.4-5.0); Calcium 6.3 mg/dL (8.5-10.1); Magnesium 1.7 mg/dL (1.6-2.6); Potassium 4.2 mmol/L (3.5-5.1)
[2022-03-23 07:59] LABS: BUN/Creatinine Ratio 34.4; Bilirubin, Total 0.2 mg/dL (0.2-1.0); Phosphorus 3.1 mg/dL (2.5-4.90); Total Protein 5.1 g/dL (6.4-8.2)
[2022-03-23] MEDS: ENSURE CLEAR Mixed Berry 8oz Carton PO SCH ×3 (08:37→18:18)
[2022-03-23 09:00] VITALS: BP 102/63
[2022-03-23] MEDS: PANTOPRAZOLE 40 MG/10 ML VIAL INJ IV SCH (10:15)
[2022-03-23] MEDS: levETIRAcetam 500 MG TAB PO SCH ×2 (10:15→22:05)
[2022-03-23] MEDS: VANCOMYCIN 750mg/250ml 250 ML IV SCH (10:25)
[2022-03-23] MEDS: SODIUM CHLOR 0.9% PF (SALINE LOCK) 10ML VIAL/SYR IV SCH ×2 (10:28→22:05)
[2022-03-23 13:00] VITALS: BP 121/69
[2022-03-23] MEDS: LORazepam 2MG/ML-1ML VIAL IV PRN (14:20)
[2022-03-23] MEDS ORDERED: MIDAZOLAM HCL 2MG/2ML 2ml VIAL (1mg/ml) ONE (14:30)
[2022-03-23] MEDS ORDERED: fentaNYL CITRATE 100 MCG/2 ML VL ONE (14:30)
[2022-03-23] MEDS ORDERED: diphenhdrAMINE HCL 50 MG/1 ML VL ONE (14:41)
[2022-03-23 17:00] VITALS: BP 103/58
[2022-03-23 20:00] VITALS: BP 115/63
[2022-03-23] MEDS ORDERED: TPN PER PHARMACY IV NR ×10 (20:00)
[2022-03-23 22:00] VITALS: BP 115/63
[2022-03-24 05:00] VITALS: BP 116/67
[2022-03-24] MEDS: cefTRIAXone 1GM/50ML D5W 50 ML IV SCH (05:58)
[2022-03-24] MEDS: GABAPENTIN 300 MG CAP PO SCH ×3 (05:59→22:14)
[2022-03-24] MEDS: ACCU-CHEK COMFORT CURVE STRIP VI SCH ×3 (05:59→18:22)
[2022-03-24] MEDS: InsuLIN REG 1unit/0.01ml Soln (100units/ml) SC SCH ×3 (06:00→18:00)
[2022-03-24] MEDS: HYDROmorphone HCL 2 MG/ML VL/or syr IV PRN ×5 (06:06→16:49)
[2022-03-24] MEDS: carBAMazepine 200 MG TAB PO SCH (06:32)
[2022-03-24 06:37] LABS: Albumin 1.6 g/dL (3.4-5.0); Potassium 4.6 mmol/L (3.5-5.1)
[2022-03-24 06:40] LABS: Bilirubin, Total 0.3 mg/dL (0.2-1.0); Phosphorus 3.8 mg/dL (2.5-4.90); Total Protein 4.7 g/dL (6.4-8.2)
[2022-03-24 06:58] LABS: BUN/Creatinine Ratio 43.4; Calcium 5.9 mg/dL (8.5-10.1)
[2022-03-24] MEDS: ENSURE CLEAR Mixed Berry 8oz Carton PO SCH ×3 (08:11→18:21)
[2022-03-24] MEDS: SODIUM CHLOR 0.9% PF (SALINE LOCK) 10ML VIAL/SYR IV SCH ×2 (10:02→22:02)
[2022-03-24] MEDS: PANTOPRAZOLE 40 MG/10 ML VIAL INJ IV SCH (11:15)
[2022-03-24] MEDS: levETIRAcetam 500 MG TAB PO SCH ×2 (11:16→22:14)
[2022-03-24] MEDS: CALCIUM GLUC 1,000mg/50ml-NS 50 ML IV SCH ×2 (11:17→12:15)
[2022-03-24 11:45] VITALS: BP 111/57
[2022-03-24] MEDS ORDERED: GADOTERATE MEG 7.5 MMOL/15ml INJ (0.5MMOL/ml) IV ONE (14:46)
[2022-03-24] MEDS: LORazepam 2MG/ML-1ML VIAL IV PRN (15:40)
[2022-03-24 16:39] VITALS: BP 113/72
[2022-03-24] MEDS: fentaNYL 50MCG/HR 50 MCG/HR PAT TD SCH (17:01)
[2022-03-24 20:00] VITALS: BP 117/73
[2022-03-24] MEDS ORDERED: TPN PER PHARMACY IV NR ×10 (20:00)
[2022-03-25] MEDS: ACCU-CHEK COMFORT CURVE STRIP VI SCH ×5 (01:07→23:51)
[2022-03-25] MEDS: HYDROmorphone HCL 2 MG/ML VL/or syr IV PRN ×6 (01:27→21:42)
[2022-03-25] MEDS: InsuLIN REG 1unit/0.01ml Soln (100units/ml) SC SCH ×5 (05:40→23:52)
[2022-03-25] MEDS: cefTRIAXone 1GM/50ML D5W 50 ML IV SCH (05:54)
[2022-03-25] MEDS: carBAMazepine 200 MG TAB PO SCH (05:55)
[2022-03-25] MEDS: GABAPENTIN 300 MG CAP PO SCH ×3 (05:55→21:41)
[2022-03-25 07:22] LABS: Albumin 1.6 g/dL (3.4-5.0); Calcium 6.5 mg/dL (8.5-10.1); Magnesium 2.5 mg/dL (1.6-2.6); Potassium 4.8 mmol/L (3.5-5.1)
[2022-03-25 07:25] LABS: BUN/Creatinine Ratio 38.3; Bilirubin, Total 0.2 mg/dL (0.2-1.0)
[2022-03-25] MEDS: PANTOPRAZOLE 40 MG/10 ML VIAL INJ IV SCH (08:41)
[2022-03-25] MEDS: levETIRAcetam 500 MG TAB PO SCH ×2 (08:41→21:41)
[2022-03-25] MEDS: ENSURE CLEAR Mixed Berry 8oz Carton PO SCH ×3 (08:44→16:57)
[2022-03-25 09:00] VITALS: BP 104/59
[2022-03-25] MEDS: SODIUM CHLOR 0.9% PF (SALINE LOCK) 10ML VIAL/SYR IV SCH ×2 (10:16→21:48)
[2022-03-25 13:00] VITALS: BP 104/68
[2022-03-25 17:01] VITALS: BP 119/70
[2022-03-25 20:00] VITALS: BP 117/67
[2022-03-25] MEDS ORDERED: TPN PER PHARMACY IV NR ×10 (20:00)
[2022-03-25 21:15] VITALS: BP 117/67
[2022-03-25] MEDS: TEMAZEPAM 15 MG CAP PO PRN (23:37)
[2022-03-26] MEDS: HYDROmorphone HCL 2 MG/ML VL/or syr IV PRN ×7 (04:12→23:39)
[2022-03-26] MEDS: ACCU-CHEK COMFORT CURVE STRIP VI SCH ×4 (05:10→23:51)
[2022-03-26] MEDS: InsuLIN REG 1unit/0.01ml Soln (100units/ml) SC SCH ×4 (05:11→23:51)
[2022-03-26] MEDS: cefTRIAXone 1GM/50ML D5W 50 ML IV SCH (05:12)
[2022-03-26 05:30] VITALS: BP 102/56
[2022-03-26] MEDS: GABAPENTIN 300 MG CAP PO SCH ×3 (06:00→21:15)
[2022-03-26] MEDS: carBAMazepine 200 MG TAB PO SCH (06:01)
[2022-03-26 06:55] LABS: Albumin 1.7 g/dL (3.4-5.0); Calcium 6.3 mg/dL (8.5-10.1); Magnesium 1.9 mg/dL (1.6-2.6); Potassium 4.6 mmol/L (3.5-5.1)
[2022-03-26 07:00] LABS: BUN/Creatinine Ratio 35.9; Bilirubin, Total 0.2 mg/dL (0.2-1.0); Phosphorus 3.9 mg/dL (2.5-4.90); Total Protein 5.3 g/dL (6.4-8.2)
[2022-03-26] MEDS: ENSURE CLEAR Mixed Berry 8oz Carton PO SCH ×3 (08:49→17:33)
[2022-03-26] MEDS: PANTOPRAZOLE 40 MG/10 ML VIAL INJ IV SCH (08:57)
[2022-03-26 09:00] VITALS: BP 105/63
[2022-03-26] MEDS: levETIRAcetam 500 MG TAB PO SCH ×2 (09:00→21:15)
[2022-03-26] MEDS: SODIUM CHLOR 0.9% PF (SALINE LOCK) 10ML VIAL/SYR IV SCH ×2 (09:10→21:15)
[2022-03-26 13:00] VITALS: BP 124/84
[2022-03-26] MEDS ORDERED: CALCIUM GLUC 1,000mg/50ml-NS 50 ML IV ONE (14:00)
[2022-03-26 17:00] VITALS: BP 110/65
[2022-03-26 20:00] VITALS: BP 117/67
[2022-03-26] MEDS ORDERED: FAT EMULSION 150 ML, SODIUM PHOSPHATES 20 MEQ, POTASSIUM ACETATE 40 MEQ, POTASSIUM PHOS... IV NR ×10 (20:00)
[2022-03-26 22:00] VITALS: BP 115/58
[2022-03-27] MEDS: HYDROmorphone HCL 2 MG/ML VL/or syr IV PRN ×7 (03:27→23:00)
[2022-03-27 04:44] VITALS: BP 116/64
[2022-03-27] MEDS: carBAMazepine 200 MG TAB PO SCH (05:53)
[2022-03-27] MEDS: GABAPENTIN 300 MG CAP PO SCH ×3 (05:53→21:42)
[2022-03-27] MEDS: cefTRIAXone 1GM/50ML D5W 50 ML IV SCH (05:53)
[2022-03-27 05:59] LABS: Albumin 1.7 g/dL (3.4-5.0); Calcium 6.5 mg/dL (8.5-10.1); Potassium 4.5 mmol/L (3.5-5.1)
[2022-03-27] MEDS: ACCU-CHEK COMFORT CURVE STRIP VI SCH ×3 (06:00→17:08)
[2022-03-27] MEDS: InsuLIN REG 1unit/0.01ml Soln (100units/ml) SC SCH ×3 (06:00→17:08)
[2022-03-27 06:03] LABS: BUN/Creatinine Ratio 38.9; Bilirubin, Total 0.3 mg/dL (0.2-1.0); Phosphorus 3.7 mg/dL (2.5-4.90); Total Protein 5.1 g/dL (6.4-8.2)
[2022-03-27 09:30] VITALS: BP 117/69
[2022-03-27] MEDS: PANTOPRAZOLE 40 MG/10 ML VIAL INJ IV SCH (10:35)
[2022-03-27] MEDS: levETIRAcetam 500 MG TAB PO SCH ×2 (10:36→21:42)
[2022-03-27] MEDS: ENSURE CLEAR Mixed Berry 8oz Carton PO SCH ×3 (10:37→17:09)
[2022-03-27] MEDS: SODIUM CHLOR 0.9% PF (SALINE LOCK) 10ML VIAL/SYR IV SCH ×2 (10:37→21:42)
[2022-03-27 14:04] VITALS: BP 126/67
[2022-03-27 16:30] VITALS: BP 119/69
[2022-03-27] MEDS: fentaNYL 50MCG/HR 50 MCG/HR PAT TD SCH (17:44)
[2022-03-27] MEDS ORDERED: TPN PER PHARMACY IV NR ×10 (20:00)
[2022-03-27] MEDS: TEMAZEPAM 15 MG CAP PO PRN (21:43)
[2022-03-27 22:00] VITALS: BP 133/71
[2022-03-28 04:43] VITALS: BP 134/72
[2022-03-28 05:07] LABS: Albumin 1.8 g/dL (3.4-5.0); Calcium 6.5 mg/dL (8.5-10.1); Potassium 4.2 mmol/L (3.5-5.1)
[2022-03-28 05:10] LABS: BUN/Creatinine Ratio 44.4
[2022-03-28 05:13] LABS: Bilirubin, Total 0.3 mg/dL (0.2-1.0); Phosphorus 3.5 mg/dL (2.5-4.90); Total Protein 5.2 g/dL (6.4-8.2)
[2022-03-28] MEDS: cefTRIAXone 1GM/50ML D5W 50 ML IV SCH (05:42)
[2022-03-28] MEDS: GABAPENTIN 300 MG CAP PO SCH ×3 (05:43→22:23)
[2022-03-28] MEDS: ACCU-CHEK COMFORT CURVE STRIP VI SCH ×5 (05:43→22:23)
[2022-03-28] MEDS: HYDROmorphone HCL 2 MG/ML VL/or syr IV PRN ×7 (05:46→22:25)
[2022-03-28] MEDS: InsuLIN REG 1unit/0.01ml Soln (100units/ml) SC SCH ×5 (06:00→22:51)
[2022-03-28] MEDS: carBAMazepine 200 MG TAB PO SCH (06:02)
[2022-03-28] MEDS: ENSURE CLEAR Mixed Berry 8oz Carton PO SCH ×3 (08:10→18:23)
[2022-03-28 08:42] VITALS: BP 120/73
[2022-03-28] MEDS ORDERED: CALCIUM GLUC 1,000mg/50ml-NS 50 ML IV ONE (09:30)
[2022-03-28] MEDS: levETIRAcetam 500 MG TAB PO SCH ×2 (10:03→22:23)
[2022-03-28] MEDS: PANTOPRAZOLE 40 MG/10 ML VIAL INJ IV SCH (10:03)
[2022-03-28] MEDS: SODIUM CHLOR 0.9% PF (SALINE LOCK) 10ML VIAL/SYR IV SCH ×2 (10:03→20:48)
[2022-03-28] MEDS: MORPHINE SULF 30 mg ER tab PO SCH (10:04)
[2022-03-28 12:29] VITALS: BP 111/59
[2022-03-28 17:00] VITALS: BP 111/66
[2022-03-28] MEDS ORDERED: TPN PER PHARMACY IV NR ×10 (20:00)
[2022-03-28 21:00] VITALS: BP 99/57
[2022-03-29] MEDS: LORazepam 2MG/ML-1ML VIAL IV PRN ×2 (00:17→09:55)
[2022-03-29] MEDS: InsuLIN REG 1unit/0.01ml Soln (100units/ml) SC SCH ×4 (06:00→23:45)
[2022-03-29] MEDS: GABAPENTIN 300 MG CAP PO SCH ×3 (07:01→21:28)
[2022-03-29] MEDS: cefTRIAXone 1GM/50ML D5W 50 ML IV SCH (07:01)
[2022-03-29] MEDS: carBAMazepine 200 MG TAB PO SCH (07:02)
[2022-03-29] MEDS: ACCU-CHEK COMFORT CURVE STRIP VI SCH ×4 (07:02→23:45)
[2022-03-29] MEDS: HYDROmorphone HCL 2 MG/ML VL/or syr IV PRN ×6 (08:12→20:42)
[2022-03-29] MEDS: ENSURE CLEAR Mixed Berry 8oz Carton PO SCH ×3 (08:14→18:16)
[2022-03-29 09:00] VITALS: BP 128/81
[2022-03-29] MEDS: PANTOPRAZOLE 40 MG/10 ML VIAL INJ IV SCH (09:54)
[2022-03-29] MEDS: levETIRAcetam 500 MG TAB PO SCH ×2 (09:55→21:28)
[2022-03-29] MEDS: MORPHINE SULF 30 mg ER tab PO SCH (09:55)
[2022-03-29] MEDS: SODIUM CHLOR 0.9% PF (SALINE LOCK) 10ML VIAL/SYR IV SCH ×2 (10:03→21:29)
[2022-03-29 10:07] LABS: Albumin 1.7 g/dL (3.4-5.0); Magnesium 2.3 mg/dL (1.6-2.6); Potassium 3.7 mmol/L (3.5-5.1)
[2022-03-29 10:10] LABS: BUN/Creatinine Ratio 36.5; Bilirubin, Total 0.2 mg/dL (0.2-1.0); Phosphorus 3.5 mg/dL (2.5-4.90); Total Protein 5.7 g/dL (6.4-8.2)
[2022-03-29] MEDS ORDERED: CALCIUM GLUC 1,000mg/50ml-NS 50 ML IV ONE (11:15)
[2022-03-29] MEDS: LACTULOSE 20Gm/30ML SOLN PO PRN (12:53)
[2022-03-29 13:00] VITALS: BP 129/70
[2022-03-29 17:00] VITALS: BP 106/56
[2022-03-29] MEDS ORDERED: TPN PER PHARMACY IV NR ×11 (20:00)
[2022-03-29] MEDS: TEMAZEPAM 15 MG CAP PO PRN (21:28)
[2022-03-29 22:00] VITALS: BP 107/61
[2022-03-30] MEDS: HYDROmorphone HCL 2 MG/ML VL/or syr IV PRN ×6 (00:12→17:45)
[2022-03-30 05:00] VITALS: BP 129/71
[2022-03-30] MEDS: cefTRIAXone 1GM/50ML D5W 50 ML IV SCH (05:32)
[2022-03-30] MEDS: GABAPENTIN 300 MG CAP PO SCH ×3 (05:37→22:24)
[2022-03-30] MEDS: ACCU-CHEK COMFORT CURVE STRIP VI SCH ×4 (05:37→23:59)
[2022-03-30] MEDS: InsuLIN REG 1unit/0.01ml Soln (100units/ml) SC SCH ×4 (05:37→23:59)
[2022-03-30] MEDS: carBAMazepine 200 MG TAB PO SCH (06:34)
[2022-03-30 07:08] LABS: Albumin 1.7 g/dL (3.4-5.0); Calcium 6.9 mg/dL (8.5-10.1); Magnesium 2.1 mg/dL (1.6-2.6); Potassium 4.1 mmol/L (3.5-5.1)
[2022-03-30 07:13] LABS: BUN/Creatinine Ratio 40.7; Bilirubin, Total 0.2 mg/dL (0.2-1.0); Phosphorus 3.9 mg/dL (2.5-4.90); Total Protein 5.2 g/dL (6.4-8.2)
[2022-03-30 08:00] VITALS: BP 101/54
[2022-03-30] MEDS: ENSURE CLEAR Mixed Berry 8oz Carton PO SCH ×3 (08:25→18:00)
[2022-03-30 08:30] VITALS: BP 101/54
[2022-03-30] MEDS: MORPHINE SULF 30 mg ER tab PO SCH ×2 (09:57→22:24)
[2022-03-30] MEDS: SODIUM CHLOR 0.9% PF (SALINE LOCK) 10ML VIAL/SYR IV SCH ×2 (09:57→22:24)
[2022-03-30] MEDS: levETIRAcetam 500 MG TAB PO SCH ×2 (09:57→22:24)
[2022-03-30] MEDS: PANTOPRAZOLE 40 MG/10 ML VIAL INJ IV SCH (09:57)
[2022-03-30] MEDS: ONDANSETRON HCL 4 MG/2 ML VIAL IV PRN (10:08)
[2022-03-30] MEDS ORDERED: CALCIUM GLUC 1,000mg/50ml-NS 50 ML IV ONE (10:30)
[2022-03-30 12:00] VITALS: BP 109/63
[2022-03-30 13:12] LABS: Basophils # (auto) 0.1 10 ^3/uL (0-0.2); Eosinophils # (auto) 0.3 10 ^3/uL (0-0.8); Lymphocytes # (auto) 0.7 10 ^3/uL (0.4-5.4); Neutrophils # (auto) 12.4 10 ^3/uL (1.6-8.6)
[2022-03-30 13:14] LABS: Basophils % (auto) 0.9 % (0.0-2.0); Hematocrit 24.5 % (36.0-46.0); Lymphocytes % (auto) 4.9 % (10.0-50.0); Mean Corpuscular Hemoglobin 30.1 pg (28.0-32.0); Mean Corpuscular Hgb Conc. 32.6 g/dL (32.0-36.0); Mean Corpuscular Volume 92.4 fL (80.0-100.0); Monocytes # (auto) 0.7 10 ^3/uL (0-1.3); Monocytes % (auto) 5.1 % (0.0-12.0); Neutrophils % (auto) 87.1 % (37.0-80.0); Red Blood Cells 2.65 10^6/uL (4.0-5.20); White Blood Cell 14.2 10^3/uL (4.4-10.8)
[2022-03-30 16:00] VITALS: BP 100/50
[2022-03-30] MEDS ORDERED: fentaNYL 50MCG/HR 50 MCG/HR PAT TD SCH (17:30)
[2022-03-30] MEDS ORDERED: TPN PER PHARMACY IV NR ×11 (20:00)
[2022-03-30 22:00] VITALS: BP 101/62
[2022-03-31] MEDS: LACTULOSE 20Gm/30ML SOLN PO PRN (00:22)
[2022-03-31 05:00] VITALS: BP 106/63
[2022-03-31] MEDS: InsuLIN REG 1unit/0.01ml Soln (100units/ml) SC SCH (06:00)
[2022-03-31] MEDS: cefTRIAXone 1GM/50ML D5W 50 ML IV SCH (06:20)
[2022-03-31] MEDS: ACCU-CHEK COMFORT CURVE STRIP VI SCH (06:21)
[2022-03-31] MEDS: carBAMazepine 200 MG TAB PO SCH (06:21)
[2022-03-31] MEDS: GABAPENTIN 300 MG CAP PO SCH ×3 (06:21→22:17)
[2022-03-31] MEDS: ENSURE CLEAR Mixed Berry 8oz Carton PO SCH ×3 (08:27→18:15)
[2022-03-31 08:30] VITALS: BP 113/62
[2022-03-31 09:00] VITALS: BP 113/62
[2022-03-31] MEDS: MORPHINE SULF 30 mg ER tab PO SCH ×2 (09:14→22:17)
[2022-03-31] MEDS: PANTOPRAZOLE 40 MG/10 ML VIAL INJ IV SCH (09:15)
[2022-03-31] MEDS: levETIRAcetam 500 MG TAB PO SCH ×2 (09:15→22:17)
[2022-03-31] MEDS: SODIUM CHLOR 0.9% PF (SALINE LOCK) 10ML VIAL/SYR IV SCH ×2 (09:17→22:17)
[2022-03-31] MEDS: HYDROmorphone HCL 2 MG/ML VL/or syr IV PRN ×3 (12:32→19:22)
[2022-03-31 13:00] VITALS: BP 104/63
[2022-04-01] VITALS (7 sets, daily range): BP systolic 90–134; BP diastolic 46–97
[2022-04-01] MEDS: carBAMazepine 200 MG TAB PO SCH (06:53)
[2022-04-01] MEDS: GABAPENTIN 300 MG CAP PO SCH ×3 (06:53→21:31)
[2022-04-01] MEDS: ENSURE CLEAR Mixed Berry 8oz Carton PO SCH ×3 (08:04→18:15)
[2022-04-01] MEDS: PANTOPRAZOLE 40 MG/10 ML VIAL INJ IV SCH (09:25)
[2022-04-01] MEDS: SODIUM CHLOR 0.9% PF (SALINE LOCK) 10ML VIAL/SYR IV SCH ×2 (09:25→21:32)
[2022-04-01] MEDS: HYDROmorphone HCL 2 MG/ML VL/or syr IV PRN ×3 (09:26→19:33)
[2022-04-01] MEDS: levETIRAcetam 500 MG TAB PO SCH ×2 (09:35→21:31)
[2022-04-01] MEDS: MORPHINE SULF 30 mg ER tab PO SCH ×2 (10:48→21:32)
[2022-04-01] MEDS: LORazepam 2MG/ML-1ML VIAL IV PRN (15:11)
[2022-04-02 05:00] VITALS: BP 106/55
[2022-04-02] MEDS: GABAPENTIN 300 MG CAP PO SCH ×3 (06:20→21:39)
[2022-04-02] MEDS: carBAMazepine 200 MG TAB PO SCH (06:44)
[2022-04-02] MEDS: ACETAMINOPHEN 500 MG TAB PO PRN ×2 (06:44→21:54)
[2022-04-02] MEDS: SODIUM CHLOR 0.9% PF (SALINE LOCK) 10ML VIAL/SYR IV SCH ×2 (08:34→21:38)
[2022-04-02] MEDS: levETIRAcetam 500 MG TAB PO SCH ×2 (08:34→21:38)
[2022-04-02] MEDS: PANTOPRAZOLE 40 MG/10 ML VIAL INJ IV SCH (08:34)
[2022-04-02] MEDS: MORPHINE SULF 30 mg ER tab PO SCH ×2 (08:35→21:39)
[2022-04-02] MEDS: ENSURE CLEAR Mixed Berry 8oz Carton PO SCH ×3 (08:35→17:57)
[2022-04-02 08:39] VITALS: BP 100/54
[2022-04-02] MEDS: HYDROmorphone HCL 2 MG/ML VL/or syr IV PRN ×3 (09:15→14:57)
[2022-04-02 12:32] VITALS: BP 109/53
[2022-04-02 17:10] VITALS: BP 103/59
[2022-04-02] MEDS: Juven Fruit Punch Powder PACKET 28.8gm PO SCH (17:57)
[2022-04-02] MEDS: Pro-Stat SF 30ml Vanilla PO SCH (17:57)
[2022-04-02] MEDS: fentaNYL 100MCG/HR 100 MCG/HR PAT TD SCH (17:59)
[2022-04-02 22:00] VITALS: BP 105/56
[2022-04-03 05:00] VITALS: BP 102/61
[2022-04-03] MEDS: carBAMazepine 200 MG TAB PO SCH (06:42)
[2022-04-03] MEDS: GABAPENTIN 300 MG CAP PO SCH ×3 (06:42→23:08)
[2022-04-03] MEDS: ENSURE CLEAR Mixed Berry 8oz Carton PO SCH ×2 (08:50→12:42)
[2022-04-03] MEDS: Pro-Stat SF 30ml Vanilla PO SCH ×2 (08:50→17:31)
[2022-04-03] MEDS: Juven Fruit Punch Powder PACKET 28.8gm PO SCH ×2 (08:50→17:31)
[2022-04-03] MEDS: PANTOPRAZOLE 40 MG/10 ML VIAL INJ IV SCH (08:52)
[2022-04-03] MEDS: SODIUM CHLOR 0.9% PF (SALINE LOCK) 10ML VIAL/SYR IV SCH ×2 (08:52→23:08)
[2022-04-03] MEDS: levETIRAcetam 500 MG TAB PO SCH ×2 (08:53→23:08)
[2022-04-03] MEDS: MORPHINE SULF 30 mg ER tab PO SCH ×2 (08:54→23:09)
[2022-04-03 09:00] VITALS: BP 125/67
[2022-04-03] MEDS: HYDROmorphone HCL 2 MG/ML VL/or syr IV PRN ×3 (10:10→18:45)
[2022-04-03 12:49] VITALS: BP 89/49
[2022-04-03] MEDS: LORazepam 2MG/ML-1ML VIAL IV PRN (16:00)
[2022-04-03 17:04] VITALS: BP 108/54
[2022-04-03 22:00] VITALS: BP 106/64
[2022-04-03] MEDS: Ensure HIGH Protein Chocolate 8oz Bottle PO SCH (23:08)
[2022-04-04] MEDS: HYDROmorphone HCL 2 MG/ML VL/or syr IV PRN ×5 (04:46→18:29)
[2022-04-04 05:00] VITALS: BP 100/55
[2022-04-04] MEDS: GABAPENTIN 300 MG CAP PO SCH ×3 (06:01→20:56)
[2022-04-04] MEDS: Ensure HIGH Protein Chocolate 8oz Bottle PO SCH ×3 (06:01→20:55)
[2022-04-04] MEDS: carBAMazepine 200 MG TAB PO SCH (06:03)
[2022-04-04] MEDS: Pro-Stat SF 30ml Vanilla PO SCH ×2 (08:00→18:15)
[2022-04-04] MEDS: Juven Fruit Punch Powder PACKET 28.8gm PO SCH ×2 (08:00→18:15)
[2022-04-04 09:11] VITALS: BP 123/69
[2022-04-04] MEDS: SODIUM CHLOR 0.9% PF (SALINE LOCK) 10ML VIAL/SYR IV SCH ×2 (11:24→20:55)
[2022-04-04] MEDS: PANTOPRAZOLE 40 MG/10 ML VIAL INJ IV SCH (11:24)
[2022-04-04] MEDS: levETIRAcetam 500 MG TAB PO SCH ×2 (11:24→20:55)
[2022-04-04] MEDS: MORPHINE SULF 30 mg ER tab PO SCH ×2 (11:24→20:56)
[2022-04-04 12:53] VITALS: BP 110/61
[2022-04-04 21:41] VITALS: BP 109/56
[2022-04-05] MEDS: HYDROmorphone HCL 2 MG/ML VL/or syr IV PRN ×6 (04:33→23:08)
[2022-04-05 05:00] VITALS: BP 106/48
[2022-04-05] MEDS: GABAPENTIN 300 MG CAP PO SCH ×3 (06:13→21:16)
[2022-04-05] MEDS: carBAMazepine 200 MG TAB PO SCH (06:13)
[2022-04-05] MEDS: Ensure HIGH Protein Chocolate 8oz Bottle PO SCH ×3 (06:13→21:15)
[2022-04-05] MEDS: Juven Fruit Punch Powder PACKET 28.8gm PO SCH ×2 (08:00→18:13)
[2022-04-05] MEDS: Pro-Stat SF 30ml Vanilla PO SCH ×2 (08:00→18:13)
[2022-04-05 08:35] VITALS: BP 95/54
[2022-04-05] MEDS: PANTOPRAZOLE 40 MG/10 ML VIAL INJ IV SCH (09:25)
[2022-04-05] MEDS: MORPHINE SULF 30 mg ER tab PO SCH ×2 (09:25→21:16)
[2022-04-05] MEDS: levETIRAcetam 500 MG TAB PO SCH ×2 (09:25→21:15)
[2022-04-05] MEDS: SODIUM CHLOR 0.9% PF (SALINE LOCK) 10ML VIAL/SYR IV SCH ×2 (10:00→21:14)
[2022-04-05 12:00] VITALS: BP 101/49
[2022-04-05 17:03] VITALS: BP 94/50
[2022-04-05] MEDS: fentaNYL 100MCG/HR 100 MCG/HR PAT TD SCH (18:23)
[2022-04-05 22:00] VITALS: BP 114/58
[2022-04-06 05:00] VITALS: BP 107/60
[2022-04-06] MEDS: GABAPENTIN 300 MG CAP PO SCH ×3 (06:16→21:37)
[2022-04-06] MEDS: Ensure HIGH Protein Chocolate 8oz Bottle PO SCH ×3 (06:16→22:00)
[2022-04-06] MEDS: carBAMazepine 200 MG TAB PO SCH (06:16)
[2022-04-06] MEDS: MORPHINE SULF 30 mg ER tab PO SCH ×2 (08:49→20:49)
[2022-04-06] MEDS: PANTOPRAZOLE 40 MG/10 ML VIAL INJ IV SCH (08:49)
[2022-04-06] MEDS: levETIRAcetam 500 MG TAB PO SCH ×2 (08:49→21:38)
[2022-04-06] MEDS: SODIUM CHLOR 0.9% PF (SALINE LOCK) 10ML VIAL/SYR IV SCH ×2 (08:50→21:44)
[2022-04-06] MEDS: Pro-Stat SF 30ml Vanilla PO SCH ×2 (08:50→17:58)
[2022-04-06] MEDS: Juven Fruit Punch Powder PACKET 28.8gm PO SCH ×2 (08:50→17:58)
[2022-04-06 09:00] VITALS: BP 115/65
[2022-04-06] MEDS: HYDROmorphone HCL 2 MG/ML VL/or syr IV PRN ×5 (09:37→23:15)
[2022-04-06 13:00] VITALS: BP 110/63
[2022-04-06 17:00] VITALS: BP 105/54
[2022-04-06 23:10] VITALS: BP 101/54
[2022-04-07] MEDS: HYDROmorphone HCL 2 MG/ML VL/or syr IV PRN ×2 (05:44→10:44)
[2022-04-07] MEDS: GABAPENTIN 300 MG CAP PO SCH (05:44)
[2022-04-07] MEDS: carBAMazepine 200 MG TAB PO SCH (05:44)
[2022-04-07 06:00] VITALS: BP 105/53
[2022-04-07] MEDS: Ensure HIGH Protein Chocolate 8oz Bottle PO SCH (06:39)
[2022-04-07] MEDS: PANTOPRAZOLE 40 MG/10 ML VIAL INJ IV SCH (08:42)
[2022-04-07] MEDS: levETIRAcetam 500 MG TAB PO SCH (08:42)
[2022-04-07] MEDS: MORPHINE SULF 30 mg ER tab PO SCH (08:42)
[2022-04-07] MEDS: Juven Fruit Punch Powder PACKET 28.8gm PO SCH (08:43)
[2022-04-07] MEDS: SODIUM CHLOR 0.9% PF (SALINE LOCK) 10ML VIAL/SYR IV SCH (08:43)
[2022-04-07] MEDS: Pro-Stat SF 30ml Vanilla PO SCH (08:43)
[2022-04-07 09:00] VITALS: BP 157/70
[2022-04-07 09:58] VITALS: BP 157/70
[2022-04-07 10:44] VITALS: BP 157/70
== END 2022-04-07 12:45 | disposition hospice, home (50) | DRG 853 ==
LOC: EDBD 20:54 → ER 21:02 → TELE 03-12 03:02 → TELE-WESTW 03-12 23:55
PROVIDERS: ADMIT Internal Medicine Cardiovascular Disease; ATTEND Internal Medicine Cardiovascular Disease
PROC: 05H933Z Insertion of Infusion Device into Right Brachial Vein, Percutaneous Approach (ICD-10-PCS; 2022-03-19)
PROC: B54MZZA Ultrasonography of Right Upper Extremity Veins, Guidance (ICD-10-PCS; 2022-03-19)
PROC: 0QB33ZX Excision of Left Pelvic Bone, Percutaneous Approach, Diagnostic (ICD-10-PCS; principal; 2022-03-23)
DX: A41.9 Sepsis, unspecified organism (principal); G93.41 Metabolic encephalopathy; R64 Cachexia; C79.51 Secondary malignant neoplasm of bone; C34.90 Malignant neoplasm of unspecified part of unspecified bronchus or lung; G35 Multiple sclerosis; E83.52 Hypercalcemia; Z66 Do not resuscitate; K58.1 Irritable bowel syndrome with constipation; Z51.5 Encounter for palliative care; K31.84 Gastroparesis; M79.7 Fibromyalgia; G40.909 Epilepsy, unspecified, not intractable, without status epilepticus; M54.10 Radiculopathy, site unspecified; K21.9 Gastro-esophageal reflux disease without esophagitis; F41.9 Anxiety disorder, unspecified; F32.A Depression, unspecified; G47.33 Obstructive sleep apnea (adult) (pediatric); E87.6 Hypokalemia; G89.29 Other chronic pain; Z82.3 Family history of stroke; Z82.49 Family history of ischemic heart disease and other diseases of the circulatory system; Z82.5 Family history of asthma and other chronic lower respiratory diseases; Z90.49 Acquired absence of other specified parts of digestive tract; Z87.891 Personal history of nicotine dependence; Z68.24 Body mass index [BMI] 24.0-24.9, adult; Z88.8 Allergy status to other drugs, medicaments and biological substances; Z91.040 Latex allergy status
CPT/HCPCS: 10005; 36415; 36569; 36600; 51702; 70450; 70553; 71045; 71250; 72125; 72192; 74176; 77012; 78306; 80048; 80053; 80069; 80156; 80202; 80307; 80320; 81001; 82140; 82542; 82553; 82652; 82805; 82962; 83605; 83735; 83970; 84100; 84478; 84484; 85025; 85379; 85610; 85730; 87040; 87077; 87186; 93005; 96361; 96365; 97110; 97116; 97163; 97530; C9113; G0378; J0696; J1815; J2001; J2250; J2405; J3480; J3489; J7060